=== PATIENT | male | born 1965 | race Two or more races ===

== ENCOUNTER 2017-02-17 17:46 | Emergency (ER) | payer OTHER ==
[~2017-02-17] VITALS: Ht 172.7 cm; Wt 74.8 kg
[2017-02-17 17:51] VITALS: BP 105/73
[2017-02-17] MEDS ORDERED: NORCO 5-325 TA1 EACH ORAL (17:53)
[2017-02-17] MEDS ORDERED: Mylanta II UD 30ml ORAL ONE (19:15)
[2017-02-17] MEDS ORDERED: Lidocaine 2% Visc 15ml soln ORAL ONE (19:15)
[2017-02-17] MEDS ORDERED: Dicyclomine HCl 10mg/5ml oral soln ORAL ONE (19:15)
--- NOTE | 2017-02-17 19:19 | Emergency Room Report ---
History of Present Illness General Chief Complaint: Upper Respiratory Illness Source: Patient Present Illness HPI 51 YO Male presents to the ED c/oN/V/D x 2 days. denies blood in the vomit or stool. pt reports immediate onset approximately 30 minutes after eating lunch yesterday. He denies fevers, reports chills. denies ill contacts or recent travel. Pt. reports intermittent abdominal cramping just prior to either episode of vomiting or diarrhea, then complete relief until next episode. pt. denies abdominal distention, trauma, rashes, bruises. Pt. reports prior hx of fatty liver years ago but denies symptoms in the right upper abdomen, pt. states he does not drink etoh. Denies CP, Palpitations, LOC, AMS, dizziness, Changes in Vision, Sensation, paresthesias, or a sudden severe headache. Allergies: Coded Allergies: PENICILLINS (Verified Allergy, Intermediate, 02/17/17) Patient History Past Medical History: see triage record Past Surgical History: none Pertinent Family History: none Immunizations: UTD Reviewed Nursing Documentation: PMH: Agreed, PSxH: Agreed Nursing Documentation-PMH Hx Cardiac Problems: No Hx Hypertension: No Hx Pacemaker: No Hx Asthma: No Hx COPD: No Hx Diabetes: No Hx Cancer: No Hx Gastrointestinal Problems: Yes - etoh abuse, liver disease Hx Dialysis: No Hx Neurological Problems: No Hx Cerebrovascular Accident: No Hx Seizures: No Review of Systems All Other Systems: negative except mentioned in HPI Physical Exam Vital Signs Date Time Temp Pulse Resp B/P Pulse Ox O2 Delivery O2 Flow Rate FiO2 02/17/17 17:45 98.2 92 16 105/73 98 Room Air Sp02 EP Interpretation: reviewed, normal General Appearance: no apparent distress, alert, GCS 15, non-toxic Head: normocephalic, atraumatic Eyes: bilateral eye PERRL, bilateral eye normal inspection ENT: hearing grossly normal, normal pharynx, no angioedema, normal voice, moist mucus membranes Neck: full range of motion, supple/symm/no masses Respiratory: lungs clear, normal breath sounds, speaking full sentences Cardiovascular #1: regular rate, rhythm, no edema Gastrointestinal: normal bowel sounds, non tender, soft, no guarding, no rebound, other - mild LLQ ttp, normal BS in all 4 quadrants, Negative Rosamond signs, Negative MacBurney's sign, Negative Rosvigns Sign, Negative Psoas, No Peritoneal signs. Rectal: deferred Musculoskeletal: back normal, gait/station normal, normal range of motion, non- tender Neurologic: alert, oriented x3, responsive, motor strength/tone normal, sensory intact, normal gait, speech normal Psychiatric: judgement/insight normal, memory normal, mood/affect normal Skin: normal color, no rash, warm/dry, well hydrated Medical Decision Making PA Attestation Dr. Valle is my supervising Physician whom patient management has been discussed with. Diagnostic Impression: Primary Impression: Gastroenteritis ER Course Pt. presents to the ED c/oN/V/D x 2 days. denies blood. immediate onset after eating lunch yesterday. denies fevers. Ddx considered but are not limited to GE, colitis, acute appy, SBO Vital signs: pt. is non-tachycardic, afebrile. H&PE are most consistent with acute gastroenteritis benign PE no evidence to suggest acute abdomen at this time. Pt is NAD non-toxic in appearance. pt appears to be well hydrated. ORDERS: none required at this time, the diagnosis is clinical ED INTERVENTIONS: - 4mg PO zofran for nausea. - GI Cocktail -Zantac 150mg -Fluid Challenge-- able to tolerate fluids without vomiting, including 2 sodas. I do not suspect an emergent condition at this time. with current presentation pt. is stable for close outpatient follow up. d/w with pt. to return immediately if change in condition such as worsen or new symptoms. DISCHARGE: At this time pt. is stable for d/c to home. Will provide printed patient care instructions, and any necessary prescriptions. Care plan and follow up instructions have been discussed with the patient prior to discharge. Last Vital Signs Date Time Temp Pulse Resp B/P Pulse Ox O2 Delivery O2 Flow Rate FiO2 02/17/17 17:51 98.2 92 16 105/73 98 Room Air Disposition: HOME, SELF-CARE Condition: Stable Scripts Ranitidine Hcl* (ZANTAC*) 150 Mg Tablet 150 MG ORAL TWICE A DAY for 7 Days, #14 TAB Prov: Shanti Milan P.A. 02/17/17 Ondansetron Odt* (ZOFRAN ODT*) 4 Mg Tab.rapdis 4 MG ORAL Q6H Y for Nausea & Vomiting, #20 TAB Prov: Shanti Milan P.A. 02/17/17 Referrals: NON PHYSICIAN (PCP) Patient Instructions: Viral Gastroenteritis, Adult, [id number] Additional Instructions: Take medications as directed. Follow up with PCP in 3-5 days Return sooner to ED if new symptoms occur, or current symptoms become worse. - Please note that this Emergency Department Report was dictated using [employer] technician technology software, occasionally this can lead to erroneous entry secondary to interpretation by the dictation equipment. Shanti Milan Feb 17, 2017 19:18
[2017-02-17] MEDS ORDERED: ZANTAC150 MG ORAL (19:20)
[2017-02-17] MEDS ORDERED: ZOFRAN ODT4 MG ORAL (19:20)
[2017-02-17 19:30] VITALS: BP 110/72
[2017-02-17 19:33] VITALS: BP 110/72
== END 2017-02-17 19:33 | disposition home or self-care (01) ==
LOC: EDBD 17:46 → EMR 18:50
DX: K52.9 Noninfective gastroenteritis and colitis, unspecified (principal); Z88.0 Allergy status to penicillin; K76.9 Liver disease, unspecified
CPT/HCPCS: 99284

== ENCOUNTER 2018-02-28 21:54 | Emergency (ER) | payer MEDICAID, OTHER ==
[~2018-02-28] VITALS: Ht 165.1 cm; Wt 76.2 kg
[~2018-02-28 21:54] MED LIST: NORCO 5-325 TA1 EACH ORAL; ZANTAC150 MG ORAL; ZOFRAN ODT4 MG ORAL
[2018-02-28] MEDS ORDERED: DOK100 M1 PO (22:04)
[2018-02-28] MEDS ORDERED: DIPHENHYDRAMINE25 M1 ORAL (22:04)
[2018-02-28] MEDS ORDERED: TAMSULOSIN HCL0.4 MG ORAL (22:04)
[2018-02-28] MEDS ORDERED: MAPAP500 M2 PO (22:04)
[2018-02-28 22:45] VITALS: BP 114/78
[2018-02-28 23:08] LABS: ANION GAP 9 mmol/L (5-15); BASOPHILS % (AUTO) 1.7 % (0.0-2.0); BLOOD UREA NITROGEN 12 mg/dL (7-18); CALCIUM 8.9 MG/DL (8.5-10.1); CARBON DIOXIDE 25 MMOL/L (21-32); CHLORIDE 106 MMOL/L (98-107); CREATININE 1.1 MG/DL (0.55-1.30); EOSINOPHILS % (AUTO) 4.6 % (0.0-3.0); HEMOGLOBIN 12.7 G/DL (14.2-18.0); LYMPHOCYTES % (AUTO) 40.7 % (20.0-45.0); MEAN CORPUSCULAR VOLUME 87 FL (80-99); MONOCYTES % (AUTO) 10.2 % (1.0-10.0); NEUTROPHILS % (AUTO) 42.7 % (45.0-75.0); PLATELET COUNT 199 K/UL (150-450); POTASSIUM 4.3 MMOL/L (3.5-5.1); RED BLOOD COUNT 4.37 M/UL (4.70-6.10); RED CELL DISTRIBUTION WIDTH 11.5 % (11.6-14.8); SODIUM 139 MMOL/L (136-145); WHITE BLOOD COUNT 4.7 K/UL (4.8-10.8)
[2018-02-28 23:25] LABS: APPEARANCE,URINE CLEAR; BILIRUBIN, URINE 1+ (NEGATIVE); GLUCOSE, URINE (UA) NEGATIVE (NEGATIVE); KETONES,URINE NEGATIVE (NEGATIVE); LEUKOCYTE ESTERASE ,URINE NEGATIVE (NEGATIVE); NITRITE,URINE NEGATIVE (NEGATIVE); PH,URINE 6 (4.5-8.0); PROTEIN,URINE 2+ (NEGATIVE); UROBILINOGEN,URINE 1 MG/DL (0.0-1.0)
[2018-02-28 23:41] LABS: COLOR,URINE AMBER
[2018-03-01] MEDS ORDERED: Ketorolac 60mg Inj IM ONE
[2018-03-01] MEDS ORDERED: Norco 5mg/325mg tab ORAL ONE
--- NOTE | 2018-03-01 00:43 | Emergency Room Report ---
History of Present Illness General Chief Complaint: Male Urogenital Problems Source: Patient Present Illness HPI Patient presents with complaints of burning with urination over the past 3 days Increased pain now also having pain to the lower back region Reports being in the hospital recently for over 2 weeks Denies any chest pain or shortness of breath denies any vomiting or diarrhea Patient initially reported some questionable urinary retention However after catheterization there was 40 mL's of urine Patient now reports that he was able to urinate however with increased pain Allergies: Coded Allergies: PENICILLINS (Verified Allergy, Intermediate, 02/17/17) Patient History Past Medical History: see triage record Pertinent Family History: none Reviewed Nursing Documentation: PMH: Agreed; PSxH: Agreed Nursing Documentation-PMH Past Medical History: No History, Except For Hx Cardiac Problems: No Hx Hypertension: No Hx Pacemaker: No Hx Asthma: No Hx COPD: No Hx Diabetes: No Hx Cancer: No Hx Gastrointestinal Problems: Yes - etoh abuse, liver disease, cholecystectomy 2016 Hx Dialysis: No Hx Neurological Problems: No Hx Cerebrovascular Accident: No Hx Seizures: No Review of Systems All Other Systems: negative except mentioned in HPI Physical Exam Vital Signs Date Time Temp Pulse Resp B/P (MAP) Pulse Ox O2 Delivery O2 Flow Rate FiO2 02/28/18 21:55 98.5 79 16 114/78 100 Room Air 98.4 Sp02 EP Interpretation: reviewed, normal General Appearance: well appearing, no apparent distress Head: normocephalic, atraumatic Eyes: bilateral eye PERRL, bilateral eye EOMI ENT: hearing grossly normal, normal pharynx, TMs + canals normal, uvula midline Neck: full range of motion, supple, no meningismus, no bony tend Respiratory: lungs clear, normal breath sounds, no rhonchi, no respiratory distress, no retraction, no accessory muscle use Cardiovascular #1: normal peripheral pulses, regular rate, rhythm, no edema, no gallop, no JVD, no murmur Gastrointestinal: normal bowel sounds, non tender, soft, no mass, no organomegaly, non-distended, no guarding, no hernia, no pulsatile mass, no rebound Genitourinary: no CVA tenderness Musculoskeletal: normal inspection Neurologic: oriented x3, responsive, ham clerk III-XII nml as tested, motor strength/ tone normal, sensory intact Psychiatric: mood/affect normal Skin: normal color, no rash, warm/dry, palpation normal Lymphatic: normal inspection, no adenopathy Medical Decision Making Diagnostic Impression: Primary Impression: Dysuria Additional Impression: Spinal stenosis ER Course Given the patient's complaints and presentation multiple differentials are considered Patient had initial extensive blood work obtained There was some evidence of urine and the blood this could be potentially from catheterization as the patient initially had complained of urinary retention There was no signs of retention however The patient had CT obtained which did not show any other pathology However there was some spinal stenosis evident Patient had recent extensive stay at another facility it was recommended that he obtain the medical records and discussed the findings with his primary physician And the patient is otherwise stable for close outpatient follow-up Labs Test 02/28/18 22:45 02/28/18 23:00 White Blood Count 4.7 K/UL (4.8-10.8) Red Blood Count 4.37 M/UL (4.70-6.10) Hemoglobin 12.7 G/DL (14.2-18.0) Hematocrit 38.0 % (42.0-52.0) Mean Corpuscular Volume 87 FL (80-99) Mean Corpuscular Hemoglobin 29.1 PG (27.0-31.0) Mean Corpuscular Hemoglobin Concent 33.5 G/DL (32.0-36.0) Red Cell Distribution Width 11.5 % (11.6-14.8) Platelet Count 199 K/UL (150-450) Mean Platelet Volume 7.7 FL (6.5-10.1) Neutrophils (%) (Auto) 42.7 % (45.0-75.0) Lymphocytes (%) (Auto) 40.7 % (20.0-45.0) Monocytes (%) (Auto) 10.2 % (1.0-10.0) Eosinophils (%) (Auto) 4.6 % (0.0-3.0) Basophils (%) (Auto) 1.7 % (0.0-2.0) Sodium Level 139 MMOL/L (136-145) Potassium Level 4.3 MMOL/L (3.5-5.1) Chloride Level 106 MMOL/L (98-107) Carbon Dioxide Level 25 MMOL/L (21-32) Anion Gap 9 mmol/L (5-15) Blood Urea Nitrogen 12 mg/dL (7-18) Creatinine 1.1 MG/DL (0.55-1.30) Estimat Glomerular Filtration Rate > 60 mL/min (>60) Glucose Level 99 MG/DL (74-106) Calcium Level 8.9 MG/DL (8.5-10.1) Urine Color [place] Urine Appearance Clear Urine pH 6 (4.5-8.0) Urine Specific [place] 1.025 (1.005-1.035) Urine Protein 2+ (NEGATIVE) Urine Glucose (UA) Negative (NEGATIVE) Urine Ketones Negative (NEGATIVE) Urine Occult Blood 3+ (NEGATIVE) Urine Nitrite Negative (NEGATIVE) Urine Bilirubin 1+ (NEGATIVE) Urine Ictotest Positive Urine Urobilinogen 1 MG/DL (0.0-1.0) Urine Leukocyte Esterase Negative (NEGATIVE) Urine RBC 30-40 /HPF (0 - 0) Urine WBC 0-2 /HPF (0 - 0) Urine Squamous Epithelial Cells Few /LPF (NONE/OCC) Urine Bacteria Few /HPF (NONE) CT/MRI/US Diagnostic Results CT/MRI/US Diagnostic Results : Impression CT abdomen pelvis mild hepatomegaly no evidence of bowel obstruction normal appendix, no evidence of renal calculi mild prostatic enlargement multi-lumbar degenerative changes L3 and L4 moderate to severe spinal stenosis Last Vital Signs Date Time Temp Pulse Resp B/P (MAP) Pulse Ox O2 Delivery O2 Flow Rate FiO2 03/01/18 00:05 98.4 02/28/18 22:45 79 16 114/78 100 Room Air Status: improved Disposition: HOME, SELF-CARE Condition: Improved Scripts Acetaminophen With Codeine (T#3) (TYLENOL #3 TAB*) Y Tab 1 TAB ORAL Q8H PRN for For Pain, #10 TAB Prov: Ced Jacobs DO 03/01/18 Phenazopyridine Hcl* (PYRIDIUM*) 100 Mg Tablet 100 MG ORAL THREE TIMES A DAY for 3 Days, TAB Prov: Ced Jacobs DO 03/01/18 Ibuprofen* (MOTRIN*) 600 Mg Tablet 600 MG ORAL Q8H PRN for For Pain, #20 TAB 0 Refills Prov: Ced Jacobs DO 03/01/18 Referrals: NON PHYSICIAN (PCP) Additional Instructions: Patient is provided with the discharge instructions notified to follow up with primary doctor in the next 2-3 days otherwise return to the er with any worsening symptoms. Please note that this report is being documented using [employer] technology. This can lead to erroneous entry secondary to incorrect interpretation by the dictating instrument. Ced Jacobs DO Mar 01, 2018 00:43
[2018-03-01] MEDS ORDERED: ACETAMINOPHEN-1 EAC1 ORAL (01:46)
[2018-03-01] MEDS ORDERED: PHENAZOPYRIDIN100 MG ORAL (01:46)
[2018-03-01] MEDS ORDERED: IBUPROFEN600 MG ORAL (01:46)
[2018-03-01 02:08] VITALS: BP 106/68
[2018-03-01 02:11] VITALS: BP 106/68
--- NOTE | 2018-03-01 09:39 | Diagnostic Imaging Report ---
Indication: Abdominal pain Technique: Continuous helical transaxial imaging of the abdomen and pelvis was obtained from the lung bases to the pubic symphysis. No intravenous contrast was administered. Coronal 2-D reformats were also obtained. Automatic Exposure Control was utilized. Total Dose length Product (DLP): 617.[address] Dose Index Volume (CTDIvol): 12.37 mGy Comparison: none Findings: Lung bases are clear. Cholecystectomy noted. No gallstones retained. No nephrolithiasis or hydronephrosis. No free fluid or free air identified. Normal appendix noted. Degenerative changes of the spine noted. IMPRESSION: No acute findings. Other incidental findings as above The CT scanner at [facility] is accredited by the [employer] and the scans are performed using dose optimization techniques as appropriate to a performed exam including Automatic Exposure control.
== END 2018-03-01 02:11 | disposition home or self-care (01) ==
LOC: EDUNIT# 21:54 → EDBD 21:54 → EMR 22:10
DX: R30.0 Dysuria (principal); M48.061 Spinal stenosis, lumbar region without neurogenic claudication; Z90.49 Acquired absence of other specified parts of digestive tract; Z88.0 Allergy status to penicillin
CPT/HCPCS: 36415; 74176; 80048; 81003; 85025; 99284

== ENCOUNTER 2018-06-04 01:43 | Emergency (ER) | payer MEDICAID ==
[~2018-06-04] VITALS: Ht 167.6 cm; Wt 72.6 kg
[~2018-06-04 01:43] MED LIST changes: +ACETAMINOPHEN-1 EAC1 ORAL; +DIPHENHYDRAMINE25 M1 ORAL; +DOK100 M1 PO; +IBUPROFEN600 MG ORAL; +MAPAP500 M2 PO; +PHENAZOPYRIDIN100 MG ORAL; +TAMSULOSIN HCL0.4 MG ORAL
[2018-06-04] MEDS ORDERED: Morphine Sulfate 4mg/ml Inj (IV/IM USE ONLY) IVP ONE (01:45)
[2018-06-04] MEDS ORDERED: Isovue-300 100ml vial INJ PRN (01:45)
[2018-06-04] MEDS ORDERED: Ketorolac 30mg Inj IV ONE (01:45)
[2018-06-04 02:00] VITALS: BP 110/72
[2018-06-04] MEDS ORDERED: Ketorolac 30mg Inj ONE (02:18)
[2018-06-04] MEDS ORDERED: Morphine Sulfate 4mg/ml Inj (IV/IM USE ONLY) ONE (02:19)
[2018-06-04 02:30] LABS: BASOPHILS % (AUTO) 1.5 % (0.0-2.0); EOSINOPHILS % (AUTO) 1.9 % (0.0-3.0); HEMATOCRIT 41.7 % (42.0-52.0); HEMOGLOBIN 14.3 G/DL (14.2-18.0); LYMPHOCYTES % (AUTO) 19.4 % (20.0-45.0); MEAN CORPUSCULAR VOLUME 87 FL (80-99); MONOCYTES % (AUTO) 10.9 % (1.0-10.0); NEUTROPHILS % (AUTO) 66.4 % (45.0-75.0); PLATELET COUNT 228 K/UL (150-450); RED BLOOD COUNT 4.79 M/UL (4.70-6.10); RED CELL DISTRIBUTION WIDTH 11.5 % (11.6-14.8); WHITE BLOOD COUNT 5.9 K/UL (4.8-10.8)
[2018-06-04 02:40] LABS: ANION GAP 10 mmol/L (5-15); BLOOD UREA NITROGEN 11 mg/dL (7-18); CALCIUM 9.2 MG/DL (8.5-10.1); CARBON DIOXIDE 23 MMOL/L (21-32); CHLORIDE 105 MMOL/L (98-107); CREATININE 1.1 MG/DL (0.55-1.30); POTASSIUM 3.3 MMOL/L (3.5-5.1); SODIUM 138 MMOL/L (136-145)
--- NOTE | 2018-06-04 02:45 | Emergency Room Report ---
History of Present Illness General Chief Complaint: Generalized Weakness Source: Patient, EMS Present Illness HPI 52-year-old male since ED for evaluation. Brought in by EMS stating having abdominal pain since last night. Pain is sharp, 10 out of 10, cramping localized to lower abdomen, radiating to the back. States he also notes blood in his urine. States the last time this happened he was admitted to the hospital for a "infection". Denies fevers or chills. Denies nausea or vomiting. No other aggravating relieving factors. Denies any other associated symptoms Allergies: Coded Allergies: PENICILLINS (Verified Allergy, Intermediate, 02/17/17) Uncoded Allergies: PENICILLIN (Allergy, Mild, 06/04/18) Patient History Past Medical History: other - cirrhosis Past Surgical History: luis manuel Pertinent Family History: none Social History: Denies: smoking, alcohol use, drug use Immunizations: UTD Reviewed Nursing Documentation: PMH: Agreed; PSxH: Agreed Nursing Documentation-PMH Past Medical History: No History, Except For Hx Cardiac Problems: Yes Hx Hypertension: No Hx Pacemaker: No Hx Asthma: No Hx COPD: No Hx Diabetes: No Hx Cancer: No Hx Gastrointestinal Problems: Yes - cirrosis, gallbadder removed Hx Dialysis: No Hx Neurological Problems: No Hx Cerebrovascular Accident: No Hx Seizures: No Review of Systems All Other Systems: negative except mentioned in HPI Physical Exam Vital Signs Date Time Temp Pulse Resp B/P (MAP) Pulse Ox O2 Delivery O2 Flow Rate FiO2 06/04/18 01:26 94.4 88 18 139/100 99 94.5 06/04/18 02:00 Room Air Sp02 EP Interpretation: reviewed, normal General Appearance: no apparent distress, alert, GCS 15, non-toxic Head: normocephalic, atraumatic Eyes: bilateral eye normal inspection, bilateral eye PERRL ENT: hearing grossly normal, normal pharynx, no angioedema, normal voice Neck: full range of motion, supple/symm/no masses Respiratory: chest non-tender, lungs clear, normal breath sounds, speaking full sentences Cardiovascular #1: regular rate, rhythm, no edema Cardiovascular #2: 2+ carotid (R), 2+ carotid (L), 2+ radial (R), 2+ radial (L) , 2+ dorsalis pedis (R), 2+ dorsalis pedis (L) Gastrointestinal: normal bowel sounds, soft, non-distended, no rebound, guarding, tenderness Rectal: deferred Genitourinary: normal inspection, no CVA tenderness Musculoskeletal: back normal, gait/station normal, normal range of motion, non- tender Neurologic: alert, oriented x3, responsive, motor strength/tone normal, sensory intact, speech normal Psychiatric: judgement/insight normal, memory normal, mood/affect normal, no suicidal/homicidal ideation Reflexes: 3+ bicep (R), 3+ bicep (L), 3+ tricep (R), 3+ tricep (L), 3+ knee (R) , 3+ knee (L) Skin: normal color, no rash, warm/dry, well hydrated Lymphatic: no adenopathy Medical Decision Making Diagnostic Impression: Primary Impression: Gastroenteritis ER Course Hospital Course 52-year-old M presents to ED with abdominal pain Differential diagnosis includes-appendicitis, cholecystitis, small bowel obstruction, gastritis, Clinical course Patient placed on stretcher. After initial history and physical I ordered labs , IV fluids, pain medications and CT scan Labs - no leukocytosis, electrolytes ok, LFTs normal, UA unremarkable CT scan shows changes consistent with ileus, enteritis Patient initially denied any diarrhea but admits to having diarrhea. States he has had these similar problems in the past. Is asking for [place] as he states his PMD prescribed some [place] every month. I explained to the patient that there is no indication for [place]; if he wants [place] he needs to follow-up with his PMD Patient states he's had this problem on and off for several years now. He is asking what can be done in the emergency room. I expect that there is no emergent condition here. Patient is to follow up with GI as outpatient I feel this is a highly complex case requiring extensive working including EKG/ Rhythm strip, Xray/CT/US, Blood/urine lab work, repeat exams while in ED, and administration of strong opiates/narcotics for pain control, admission to hospital or close patient follow up. Diagnosis - gastroenteritis Stable and discharged to home. Followup with PMD. Return to ED if symptoms recur or worsen Labs Test 06/04/18 02:05 06/04/18 04:38 White Blood Count 5.9 K/UL (4.8-10.8) Red Blood Count 4.79 M/UL (4.70-6.10) Hemoglobin 14.3 G/DL (14.2-18.0) Hematocrit 41.7 % (42.0-52.0) Mean Corpuscular Volume 87 FL (80-99) Mean Corpuscular Hemoglobin 29.9 PG (27.0-31.0) Mean Corpuscular Hemoglobin Concent 34.4 G/DL (32.0-36.0) Red Cell Distribution Width 11.5 % (11.6-14.8) Platelet Count 228 K/UL (150-450) Mean Platelet Volume 7.8 FL (6.5-10.1) Neutrophils (%) (Auto) 66.4 % (45.0-75.0) Lymphocytes (%) (Auto) 19.4 % (20.0-45.0) Monocytes (%) (Auto) 10.9 % (1.0-10.0) Eosinophils (%) (Auto) 1.9 % (0.0-3.0) Basophils (%) (Auto) 1.5 % (0.0-2.0) Sodium Level 138 MMOL/L (136-145) Potassium Level 3.3 MMOL/L (3.5-5.1) Chloride Level 105 MMOL/L (98-107) Carbon Dioxide Level 23 MMOL/L (21-32) Anion Gap 10 mmol/L (5-15) Blood Urea Nitrogen 11 mg/dL (7-18) Creatinine 1.1 MG/DL (0.55-1.30) Estimat Glomerular Filtration Rate > 60 mL/min (>60) Glucose Level 86 MG/DL (74-106) Calcium Level 9.2 MG/DL (8.5-10.1) Total Bilirubin 1.6 MG/DL (0.2-1.0) Direct Bilirubin 0.3 MG/DL (0.0-0.3) Aspartate Amino Transf (AST/SGOT) 147 U/L (15-37) Alanine Aminotransferase (ALT/SGPT) 268 U/L (12-78) Alkaline Phosphatase 91 U/L (46-116) Total Protein 8.7 G/DL (6.4-8.2) Albumin 4.2 G/DL (3.4-5.0) Globulin 4.5 g/dL Albumin/Globulin Ratio 0.9 (1.0-2.7) Lipase 330 U/L (73-393) Urine Color Yellow Urine Appearance Clear Urine pH 5 (4.5-8.0) Urine Specific [place] 1.010 (1.005-1.035) Urine Protein 2+ (NEGATIVE) Urine Glucose (UA) Negative (NEGATIVE) Urine Ketones Negative (NEGATIVE) Urine Blood Negative (NEGATIVE) Urine Nitrite Negative (NEGATIVE) Urine Bilirubin Negative (NEGATIVE) Urine Urobilinogen Normal MG/DL (0.0-1.0) Urine Leukocyte Esterase 1+ (NEGATIVE) Urine RBC 0-2 /HPF (0 - 0) Urine WBC 0 /HPF (0 - 0) Urine Squamous Epithelial Cells Occasional /LPF Urine Bacteria Occasional /HPF (NONE) CT/MRI/US Diagnostic Results CT/MRI/US Diagnostic Results : Imaging Test Ordered: CT A/P Impression Diffuse small bowel enteritis/ileus suspected. Correlate clinically. Status post cholecystectomy. Last Vital Signs Date Time Temp Pulse Resp B/P (MAP) Pulse Ox O2 Delivery O2 Flow Rate FiO2 06/04/18 02:24 97.9 06/04/18 02:00 76 15 110/72 98 Room Air Status: improved Disposition: HOME, SELF-CARE Condition: Stable Scripts Ranitidine Hcl* (ZANTAC*) 150 Mg Tablet 150 MG ORAL TWICE A DAY, #30 TAB Prov: Tavares Rosas MD 06/04/18 Dicyclomine Hcl* (DICYCLOMINE HCL*) 10 Mg Capsule 10 MG PO QID for 5 Days, CAP Prov: Tavares Rosas MD 06/04/18 Referrals: NON PHYSICIAN (PCP) Tavares Rosas MD Jun 04, 2018 02:45
[2018-06-04 02:50] LABS: ALANINE AMINOTRANSFERASE 268 U/L (12-78); ALBUMIN 4.2 G/DL (3.4-5.0); ALBUMIN/GLOBULIN RATIO 0.9 (1.0-2.7); ALKALINE PHOSPHATASE 91 U/L (46-116); ASPARTATE AMINO TRANSFERASE 147 U/L (15-37); BILIRUBIN,TOTAL 1.6 MG/DL (0.2-1.0)
[2018-06-04 02:55] LABS: BILIRUBIN,DIRECT 0.3 MG/DL (0.0-0.3)
[2018-06-04 05:15] LABS: APPEARANCE,URINE CLEAR; BILIRUBIN, URINE NEGATIVE (NEGATIVE); GLUCOSE, URINE (UA) NEGATIVE (NEGATIVE); KETONES,URINE NEGATIVE (NEGATIVE); LEUKOCYTE ESTERASE ,URINE 1+ (NEGATIVE); NITRITE,URINE NEGATIVE (NEGATIVE); PH,URINE 5 (4.5-8.0); PROTEIN,URINE 2+ (NEGATIVE); UROBILINOGEN,URINE NORMAL MG/DL (0.0-1.0)
[2018-06-04 05:19] LABS: COLOR,URINE YELLOW
[2018-06-04] MEDS ORDERED: RANITIDINE HCL150 MG ORAL (05:34)
[2018-06-04] MEDS ORDERED: DICYCLOMINE HCL10 MG PO (05:34)
[2018-06-04 05:35] VITALS: BP 129/83
--- NOTE | 2018-06-04 08:38 | Diagnostic Imaging Report ---
Indication: Abdominal pain Technique: Continuous helical transaxial imaging of the abdomen and pelvis was obtained from the lung bases to the pubic symphysis during intravenous contrast administration. Coronal 2-D reformats were also obtained. Study obtained in a Siemens sensation [address] Automatic Exposure Control was utilized. Total Dose length Product (DLP): [address] Dose Index Volume (CTDIvol): 0.15, 12.06 mGy Comparison: None Findings: The appendix is identified and appears normal. There are dilated fluid-filled loops of small bowel noted in a diffuse fashion suggestive of enteritis/ileus. Correlate clinically. There is no free fluid or free air. Cholecystectomy noted. Kidneys are unremarkable bilaterally. There is no hydronephrosis. The lung bases appear clear. The stomach is nondistended and limited in evaluation. The right lobe of the liver is enlarged and elongated. This is probably a Dilshad's configuration. Solid organs including the liver pancreas and spleen appear unremarkable otherwise. There is narrowing of intervertebral discs and accompanying endplate osteophyte formation. Hypertrophied facet joints also demonstrated.. Prominent disc osteophyte complex at L3-4 results in some narrowing of the central canal. IMPRESSION: Diffuse small bowel enteritis/ileus suspected. Correlate clinically. Status post cholecystectomy. Hepatomegaly versus Dilshad's lobe Other incidental findings as above. [facility] has communicated the preliminary results to the Emergency Department. Their findings are largely concordant with this report. The CT scanner at [facility] is accredited by the [employer] and the scans are performed using dose optimization techniques as appropriate to a performed exam including Automatic Exposure control.
== END 2018-06-04 05:35 | disposition home or self-care (01) ==
LOC: EDBD 01:43 → EMR 02:06
DX: K52.9 Noninfective gastroenteritis and colitis, unspecified (principal); R31.9 Hematuria, unspecified; K74.60 Unspecified cirrhosis of liver; Z88.0 Allergy status to penicillin; Z86.79 Personal history of other diseases of the circulatory system; Z90.49 Acquired absence of other specified parts of digestive tract
CPT/HCPCS: 36415; 74177; 80053; 81003; 82248; 83690; 85025; 96361; 96374; 96375; 99284; J1885; J2270; Q9967

== ENCOUNTER 2019-03-03 19:36 | Inpatient (IN) | payer MEDICAID ==
[~2019-03-03] VITALS: Ht 162.6 cm; Wt 70.3 kg
[~2019-03-03 19:36] MED LIST changes: +DICYCLOMINE HCL10 MG PO; +RANITIDINE HCL150 MG ORAL
[2019-03-03] MEDS ORDERED: UNOBMED (19:40)
--- NOTE | 2019-03-03 19:42 | NUR ---
ED Nurse Note: Pt ALEADai [id number] from home c/o 05/30 muscle pain/cramping all over his body. Pt is A&Ox4, denies sob. Hx of cirrhosis.
[2019-03-03] MEDS ORDERED: Ketorolac 30mg Inj IV ONE (19:45)
[2019-03-03 19:46] VITALS: BP 90/50
[2019-03-03 20:35] LABS: BASOPHILS % (AUTO) 0.7 % (0.0-2.0); EOSINOPHILS % (AUTO) 0.8 % (0.0-3.0); HEMATOCRIT 42.6 % (42.0-52.0); HEMOGLOBIN 14.5 G/DL (14.2-18.0); LYMPHOCYTES % (AUTO) 25.1 % (20.0-45.0); MEAN CORPUSCULAR VOLUME 89 FL (80-99); MONOCYTES % (AUTO) 10.2 % (1.0-10.0); NEUTROPHILS % (AUTO) 63.3 % (45.0-75.0); PLATELET COUNT 219 K/UL (150-450); RED BLOOD COUNT 4.81 M/UL (4.70-6.10); RED CELL DISTRIBUTION WIDTH 11.1 % (11.6-14.8); WHITE BLOOD COUNT 7.4 K/UL (4.8-10.8)
[2019-03-03 20:54] LABS: ANION GAP 15 mmol/L (5-15); BLOOD UREA NITROGEN 43 mg/dL (7-18); CALCIUM 9.3 MG/DL (8.5-10.1); CARBON DIOXIDE 21 MMOL/L (21-32); CHLORIDE 95 MMOL/L (98-107); CREATININE 3.6 MG/DL (0.55-1.30); POTASSIUM 3.8 MMOL/L (3.5-5.1); SODIUM 131 MMOL/L (136-145)
[2019-03-03 21:07] LABS: ALANINE AMINOTRANSFERASE 24 U/L (12-78); ALBUMIN 4.3 G/DL (3.4-5.0); ALBUMIN/GLOBULIN RATIO 0.8 (1.0-2.7); ALKALINE PHOSPHATASE 80 U/L (46-116); ASPARTATE AMINO TRANSFERASE 25 U/L (15-37); BILIRUBIN,TOTAL 1.2 MG/DL (0.2-1.0); CREATINE KINASE 523 U/L (26-308)
[2019-03-03 21:08] LABS: BILIRUBIN,DIRECT 0.2 MG/DL (0.0-0.3)
--- NOTE | 2019-03-03 22:43 | Emergency Room Report ---
History of Present Illness General Chief Complaint: Pain Source: Patient Present Illness HPI The patient presents with total body pain. He also feels muscle aches. He denies having fevers or chills. When asked about chest pain he says "my whole body hurts". He hasn't had any vomiting or diarrhea. The patient has a history of substance abuse in the past. He rates the pain 10/10. Aching all over and constant. He denies taking any medication for the pain. No fevers, chills, palpitations, dysuria, shortness of breath, visual changes, headache. He is anxious. Allergies: Coded Allergies: PENICILLINS (Verified Allergy, Intermediate, 02/17/17) Uncoded Allergies: PENICILLIN (Allergy, Mild, 06/04/18) Patient History Past Medical History: see triage record Past Surgical History: luis manuel Social History: Reports: smoking, drug use Social History Narrative From home Reviewed Nursing Documentation: PMH: Agreed; PSxH: Agreed Nursing Documentation-PMH Past Medical History: No History, Except For Hx Cardiac Problems: Yes Hx Hypertension: No Hx Pacemaker: No Hx Asthma: No Hx COPD: No Hx Diabetes: No Hx Cancer: No Hx Gastrointestinal Problems: Yes - cirrosis, gallbadder removed Hx Dialysis: No Hx Neurological Problems: No Hx Cerebrovascular Accident: No Hx Seizures: No Review of Systems All Other Systems: negative except mentioned in HPI Physical Exam Vital Signs Date Time Temp Pulse Resp B/P (MAP) Pulse Ox O2 Delivery O2 Flow Rate FiO2 03/03/19 19:37 97.5 122 20 90/50 (63) 100 Room Air Sp02 EP Interpretation: reviewed, normal General Appearance: well appearing, GCS 15, mild distress Head: normocephalic, atraumatic Eyes: bilateral eye normal inspection, bilateral eye PERRL, bilateral eye EOMI ENT: dry mucus membranes Neck: supple Respiratory: lungs clear, normal breath sounds Cardiovascular #1: tachycardia Cardiovascular #2: 2+ radial (R) Gastrointestinal: normal inspection, normal bowel sounds, non tender, no mass, non-distended, scaphoid Genitourinary: no CVA tenderness Musculoskeletal: back normal, normal range of motion Neurologic: alert, oriented x3, grossly normal Psychiatric: anxious Skin: no rash Medical Decision Making Diagnostic Impression: Primary Impression: Acute renal failure Qualified Codes: N17.9 - Acute kidney failure, unspecified Additional Impression: Amphetamine abuse ER Course Patient presents with total body pain. Differential includes rhabdomyolysis, myositis, electrolyte imbalance, substance abuse amongst others. Evaluation will be with EKG, chest x-ray and labs. The patient is treated with IV hydration and a dose of Toradol. EKG without injury. Chest x-ray unremarkable. Labs with acute renal failure and amphetamines. Fractional excretion of sodium suggests prerenal origin of renal failure. CPK is minimally elevated. Pain improved with treatment. IV hydration continued however due to the renal failure the patient is admitted to medical floor. Laboratory Tests Test 03/03/19 20:20 03/03/19 22:40 White Blood Count 7.4 K/UL (4.8-10.8) Red Blood Count 4.81 M/UL (4.70-6.10) Hemoglobin 14.5 G/DL (14.2-18.0) Hematocrit 42.6 % (42.0-52.0) Mean Corpuscular Volume 89 FL (80-99) Mean Corpuscular Hemoglobin 30.2 PG (27.0-31.0) Mean Corpuscular Hemoglobin Concent 34.0 G/DL (32.0-36.0) Red Cell Distribution Width 11.1 % (11.6-14.8) L Platelet Count 219 K/UL (150-450) Mean Platelet Volume 7.0 FL (6.5-10.1) Neutrophils (%) (Auto) 63.3 % (45.0-75.0) Lymphocytes (%) (Auto) 25.1 % (20.0-45.0) Monocytes (%) (Auto) 10.2 % (1.0-10.0) H Eosinophils (%) (Auto) 0.8 % (0.0-3.0) Basophils (%) (Auto) 0.7 % (0.0-2.0) Prothrombin Time 10.5 SEC (9.30-11.50) Prothrombin Time INR 1.0 (0.9-1.1) PTT 23 SEC (23-33) Sodium Level 131 MMOL/L (136-145) L Potassium Level 3.8 MMOL/L (3.5-5.1) Chloride Level 95 MMOL/L (98-107) L Carbon Dioxide Level 21 MMOL/L (21-32) Anion Gap 15 mmol/L (5-15) Blood Urea Nitrogen 43 mg/dL (7-18) H Creatinine 3.6 MG/DL (0.55-1.30) H Estimate Glomerular Filtration Rate 17.7 mL/min (>60) Glucose Level 129 MG/DL (74-106) H Calcium Level 9.3 MG/DL (8.5-10.1) Total Bilirubin 1.2 MG/DL (0.2-1.0) H Direct Bilirubin 0.2 MG/DL (0.0-0.3) Aspartate Amino Transferase (AST) 25 U/L (15-37) Alanine Aminotransferase (ALT) 24 U/L (12-78) Alkaline Phosphatase 80 U/L (46-116) Total Creatine Kinase 523 U/L (26-308) H Troponin I 0.000 ng/mL (0.000-0.056) Pro-B-Type Natriuretic Peptide 45 pg/mL (0-125) Total Protein 9.4 G/DL (6.4-8.2) H Albumin 4.3 G/DL (3.4-5.0) Globulin 5.1 g/dL Albumin/Globulin Ratio 0.8 (1.0-2.7) L Urine Color Gayle Urine Appearance Cloudy Urine pH 5 (4.5-8.0) Urine Specific [place] 1.025 (1.005-1.035) Urine Protein 3+ (NEGATIVE) H Urine Glucose (UA) Negative (NEGATIVE) Urine Ketones 1+ (NEGATIVE) H Urine Blood 1+ (NEGATIVE) H Urine Nitrite Negative (NEGATIVE) Urine Bilirubin 1+ (NEGATIVE) H Urine Ictotest Negative (NEGATIVE) Urine Urobilinogen 1 MG/DL (0.0-1.0) H Urine Leukocyte Esterase 1+ (NEGATIVE) H Urine RBC 0-2 /HPF (0 - 0) H Urine WBC 0-2 /HPF (0 - 0) Urine Squamous Epithelial Cells Few /LPF (NONE/OCC) Urine Bacteria Many /HPF (NONE) H Urine Hyaline Casts 10-15 /LPF (NONE) H Urine Random Sodium < 20 mmol/L (20-110) L Urine Creatinine 576.2 MG/DL (30.0-125.0) H Urine Opiates Screen Negative (NEGATIVE) Urine Barbiturates Screen Negative (NEGATIVE) Phencyclidine (PCP) Screen Negative (NEGATIVE) Urine Amphetamines Screen Positive (NEGATIVE) H Urine Benzodiazepines Screen Negative (NEGATIVE) Urine Cocaine Screen Negative (NEGATIVE) Urine Marijuana (THC) Screen Positive (NEGATIVE) H EKG Diagnostic Results Rate: normal Rhythm: NSR ST Segments: no acute changes - Biatrial enlargement Rhythm Strip Diag. Results EP Interpretation: yes Rhythm: NSR, no PVC's, no ectopy Chest X-Ray Diagnostic Results Chest X-Ray Diagnostic Results : Chest X-Ray Ordered: Yes # of Views/Limited/Complete: 1 View Indication: Other EP Interpretation: Yes Interpretation: no consolidation, no effusion, no pneumothorax Impression: No acute disease Electronically Signed by: Electronically signed by Alfonso Gomez MD Last Vital Signs Date Time Temp Pulse Resp B/P (MAP) Pulse Ox O2 Delivery O2 Flow Rate FiO2 03/04/19 01:45 Room Air 03/03/19 23:45 98.5 78 18 98/68 98 Status: improved Disposition: ADMITTED INPATIENT Condition: Serious Referrals: NON PHYSICIAN (PCP) Alfonso Gomez MD Mar 03, 2019 22:43
[2019-03-03 22:55] LABS: APPEARANCE,URINE CLOUDY; BILIRUBIN, URINE 1+ (NEGATIVE); GLUCOSE, URINE (UA) NEGATIVE (NEGATIVE); KETONES,URINE 1+ (NEGATIVE); LEUKOCYTE ESTERASE ,URINE 1+ (NEGATIVE); NITRITE,URINE NEGATIVE (NEGATIVE); PH,URINE 5 (4.5-8.0); PROTEIN,URINE 3+ (NEGATIVE); UROBILINOGEN,URINE 1 MG/DL (0.0-1.0)
[2019-03-03 22:57] LABS: COLOR,URINE AMBER
[2019-03-03] MEDS ORDERED: Miralax 17gm pkt ORAL PRN (23:30)
[2019-03-03] MEDS ORDERED: Zolpidem 5mg tab ORAL PRN (23:30)
[2019-03-03] MEDS ORDERED: LORazepam Inj 2mg/ml 1ml IV PRN (23:30)
[2019-03-03] MEDS ORDERED: Morphine Sulfate 2mg/ml Inj(IV/IM USE ONLY) IVP PRN (23:30)
--- NOTE | 2019-03-03 23:45 | NUR ---
TRANSFER TO FLOOR: Patient transferred to as ordered, per Dr Pickens. Report given to ROSALIE Mitchell. Belongings and medications given to . Family and or S/O informed of transfer.
[2019-03-04] MEDS: D5NS 1,000 ML IV SCH ×4 (00:29→13:11)
--- NOTE | 2019-03-04 00:36 | NUR ---
NURSE NOTES: Received report from ROSALIE Rutherford from ED at 2345. Patient arrived on the floor at 0010, 03/04/19. Patient alert, awake, and verbally responsive to let needs known. Patient is breathing unlabored and evenly without distress, discomfort, or SOB noted. Patient verbalized generalized pain over the body. Vitals within normal range. Oriented to the room and the unit. IV site noted on the RAC running fluid as ordered. Patient have dry, scaly, itchy feet. Otherwise skin is intact. Belongings (1 shirt, 1 pant, 1 slipper, 1 sweater, socks, and cellphone LG ZTE) noted at the bedside confirmed with patient. Call light placed within reach. Will continue to monitor and provide care as ordered.
[2019-03-04 04:00] VITALS: BP 104/70
--- NOTE | 2019-03-04 07:38 | NUR ---
HAND-OFF: Report given to Gia RN. Patient in stable condition.
--- NOTE | 2019-03-04 07:39 | NUR ---
NURSE NOTES: Received pt from Minsu, RN in bed. AO x 4. Room air. IV 20g R AC running D5NS @200 mg/hr. No s/s pain/distress. Bed in the lowest, locked, and alarm on. Call light within reach. Will continue to monitor
--- NOTE | 2019-03-04 07:40 | NUR ---
NURSE NOTES: Collected urine and delivered to lab
[2019-03-04 07:50] LABS: APPEARANCE,URINE CLEAR; BILIRUBIN, URINE NEGATIVE (NEGATIVE); COLOR,URINE PALE YELLOW; GLUCOSE, URINE (UA) NEGATIVE (NEGATIVE); KETONES,URINE NEGATIVE (NEGATIVE); LEUKOCYTE ESTERASE ,URINE NEGATIVE (NEGATIVE); NITRITE,URINE NEGATIVE (NEGATIVE); PH,URINE 5 (4.5-8.0); PROTEIN,URINE 2+ (NEGATIVE); UROBILINOGEN,URINE NORMAL MG/DL (0.0-1.0)
[2019-03-04 08:00] VITALS: BP 110/63
[2019-03-04 08:02] LABS: BASOPHILS % (AUTO) 1.1 % (0.0-2.0); EOSINOPHILS % (AUTO) 2.7 % (0.0-3.0); HEMATOCRIT 35.9 % (42.0-52.0); HEMOGLOBIN 12.2 G/DL (14.2-18.0); LYMPHOCYTES % (AUTO) 41.9 % (20.0-45.0); MEAN CORPUSCULAR VOLUME 90 FL (80-99); MONOCYTES % (AUTO) 8.2 % (1.0-10.0); NEUTROPHILS % (AUTO) 46.2 % (45.0-75.0); PLATELET COUNT 204 K/UL (150-450); RED CELL DISTRIBUTION WIDTH 11.5 % (11.6-14.8); WHITE BLOOD COUNT 6.4 K/UL (4.8-10.8)
[2019-03-04] MEDS: Heparin 5000 units/ml inj SUBQ SCH ×2 (08:20→20:15)
[2019-03-04 08:48] LABS: ALANINE AMINOTRANSFERASE 20 U/L (12-78); ALBUMIN 3.5 G/DL (3.4-5.0); ALKALINE PHOSPHATASE 59 U/L (46-116); ANION GAP 10 mmol/L (5-15); ASPARTATE AMINO TRANSFERASE 23 U/L (15-37); BLOOD UREA NITROGEN 36 mg/dL (7-18); CALCIUM 7.8 MG/DL (8.5-10.1); CARBON DIOXIDE 22 MMOL/L (21-32); CHLORIDE 102 MMOL/L (98-107); CHOLESTEROL 129 MG/DL (< 200); CREATINE KINASE 539 U/L (26-308); CREATININE 1.8 MG/DL (0.55-1.30); HDL CHOLESTEROL 44 MG/DL (40-60); PHOSPHORUS 3.3 MG/DL (2.5-4.9); POTASSIUM 3.1 MMOL/L (3.5-5.1); SODIUM 134 MMOL/L (136-145); TRIGLYCERIDES 44 MG/DL (30-150)
[2019-03-04 09:11] LABS: BILIRUBIN,TOTAL 1.2 MG/DL (0.2-1.0)
[2019-03-04 09:13] LABS: BILIRUBIN,DIRECT 0.2 MG/DL (0.0-0.3)
[2019-03-04 12:00] VITALS: BP 115/69
--- NOTE | 2019-03-04 12:37 | Consultation ---
History of Present Illness General Date patient seen: Mar 04, 2019 Chief Complaint: Pain Present Illness HPI 53 year old female with hx of BPH, drug use, presented to ER with total body pain. He has difficulty urinating worsening for the last one week. He was found to be in renal failure. Allergies: Coded Allergies: PENICILLINS (Verified Allergy, Intermediate, 02/17/17) Uncoded Allergies: PENICILLIN (Allergy, Mild, 06/04/18) Medication History Scheduled Dicyclomine Hcl* (Dicyclomine Hcl*), 10 MG PO QID Phenazopyridine Hcl* (Pyridium*), 100 MG ORAL THREE TIMES A DAY Ranitidine Hcl* (Zantac*), 150 MG ORAL TWICE A DAY Ranitidine Hcl* (Zantac*), 150 MG ORAL TWICE A DAY Tamsulosin Hcl (Tamsulosin Hcl*), 0.4 MG ORAL BEDTIME, (Reported) Scheduled PRN Acetaminophen With Codeine (T#3) (Tylenol #3 Tab*), 1 TAB ORAL Q8H PRN for For Pain Diphenhydramine Hcl* (Diphenhydramine Hcl*), 50 MG ORAL Q8H PRN for Insomnia, ( Reported) Hydrocodone Bit/Acetaminophen 5-325* (Norris 5-325*), 1 TAB ORAL Q6H PRN for For Pain, (Reported) Ibuprofen* (Motrin*), 600 MG ORAL Q8H PRN for For Pain Ondansetron Odt* (Zofran Odt*), 4 MG ORAL Q6H PRN for Nausea & Vomiting Miscellaneous Medications Acetaminophen (Mapap), 500 MG PO, (Reported) Docusate Sodium (Dok), 100 MG PO, (Reported) Unable to Obtain Medications (Unable To Obtain Meds), (Reported) Patient History Healthcare decision maker Resuscitation status Full Code Advanced Directive on File No Past Medical/Surgical History Past Medical/Surgical History: (1) Amphetamine abuse (2) BPH (benign prostatic hyperplasia) Review of Systems All Other Systems: negative except mentioned in HPI Physical Exam General Appearance: WD/WN Lines, tubes and drains: peripheral HEENT: normocephalic, atraumatic Neck: non-tender, normal alignment Respiratory/Chest: chest wall non-tender, lungs clear Breasts: no masses Cardiovascular/Chest: normal peripheral pulses Abdomen: normal bowel sounds Genitourinary/Rectal: normal genital exam Extremities: normal range of motion Last 24 Hour Vital Signs Date Time Temp Pulse Resp B/P (MAP) Pulse Ox O2 Delivery O2 Flow Rate FiO2 03/04/19 12:00 97.5 72 19 115/69 (84) 98 03/04/19 09:00 Room Air 03/04/19 08:00 98.2 61 18 110/63 (79) 98 03/04/19 04:00 97.7 61 16 104/70 (81) 99 03/04/19 01:45 Room Air 03/03/19 23:45 98.5 78 18 98/68 98 Room Air 03/03/19 20:44 97.5 03/03/19 19:46 97.5 98 20 90/50 100 Room Air 03/03/19 19:37 97.5 122 20 90/50 (63) 100 Room Air Intake and Output 03/03/19 03/04/19 19:00 07:00 Intake Total 1113.3 ml Balance 1113.3 ml Intake Oral 0 ml IV Total 1113.3 ml Laboratory Tests Test 03/03/19 20:20 03/03/19 22:40 03/04/19 06:08 03/04/19 07:15 White Blood Count 7.4 K/UL (4.8-10.8) 6.4 K/UL (4.8-10.8) Red Blood Count 4.81 M/UL (4.70-6.10) 4.00 M/UL (4.70-6.10) L Hemoglobin 14.5 G/DL (14.2-18.0) 12.2 G/DL (14.2-18.0) L Hematocrit 42.6 % (42.0-52.0) 35.9 % (42.0-52.0) L Mean Corpuscular Volume 89 FL (80-99) 90 FL (80-99) Mean Corpuscular Hemoglobin 30.2 PG (27.0-31.0) 30.5 PG (27.0-31.0) Mean Corpuscular Hemoglobin Concent 34.0 G/DL (32.0-36.0) 34.0 G/DL (32.0-36.0) Red Cell Distribution Width 11.1 % (11.6-14.8) L 11.5 % (11.6-14.8) L Platelet Count 219 K/UL (150-450) 204 K/UL (150-450) Mean Platelet Volume 7.0 FL (6.5-10.1) 6.7 FL (6.5-10.1) Neutrophils (%) (Auto) 63.3 % (45.0-75.0) 46.2 % (45.0-75.0) Lymphocytes (%) (Auto) 25.1 % (20.0-45.0) 41.9 % (20.0-45.0) Monocytes (%) (Auto) 10.2 % (1.0-10.0) H 8.2 % (1.0-10.0) Eosinophils (%) (Auto) 0.8 % (0.0-3.0) 2.7 % (0.0-3.0) Basophils (%) (Auto) 0.7 % (0.0-2.0) 1.1 % (0.0-2.0) Prothrombin Time 10.5 SEC (9.30-11.50) Prothromb Time International Ratio 1.0 (0.9-1.1) Activated Partial Thromboplast Time 23 SEC (23-33) Sodium Level 131 MMOL/L (136-145) L 134 MMOL/L (136-145) L Potassium Level 3.8 MMOL/L (3.5-5.1) 3.1 MMOL/L (3.5-5.1) L Chloride Level 95 MMOL/L (98-107) L 102 MMOL/L (98-107) Carbon Dioxide Level 21 MMOL/L (21-32) 22 MMOL/L (21-32) Anion Gap 15 mmol/L (5-15) 10 mmol/L (5-15) Blood Urea Nitrogen 43 mg/dL (7-18) H 36 mg/dL (7-18) H Creatinine 3.6 MG/DL (0.55-1.30) H 1.8 MG/DL (0.55-1.30) H Estimat Glomerular Filtration Rate 17.7 mL/min (>60) 39.4 mL/min (>60) Glucose Level 129 MG/DL (74-106) H 143 MG/DL (74-106) H Calcium Level 9.3 MG/DL (8.5-10.1) 7.8 MG/DL (8.5-10.1) L Total Bilirubin 1.2 MG/DL (0.2-1.0) H 1.2 MG/DL (0.2-1.0) H Direct Bilirubin 0.2 MG/DL (0.0-0.3) 0.2 MG/DL (0.0-0.3) Aspartate Amino Transf (AST/SGOT) 25 U/L (15-37) 23 U/L (15-37) Alanine Aminotransferase (ALT/SGPT) 24 U/L (12-78) 20 U/L (12-78) Alkaline Phosphatase 80 U/L (46-116) 59 U/L (46-116) Total Creatine Kinase 523 U/L (26-308) H 539 U/L (26-308) H Troponin I 0.000 ng/mL (0.000-0.056) Pro-B-Type Natriuretic Peptide 45 pg/mL (0-125) Total Protein 9.4 G/DL (6.4-8.2) H 7.0 G/DL (6.4-8.2) Albumin 4.3 G/DL (3.4-5.0) 3.5 G/DL (3.4-5.0) Globulin 5.1 g/dL 3.5 g/dL Albumin/Globulin Ratio 0.8 (1.0-2.7) L 1.0 (1.0-2.7) Urine Color Gayle Pale yellow Urine Appearance Cloudy Clear Urine pH 5 (4.5-8.0) 5 (4.5-8.0) Urine Specific [place] 1.025 (1.005-1.035) 1.025 (1.005-1.035) Urine Protein 3+ (NEGATIVE) H 2+ (NEGATIVE) H Urine Glucose (UA) Negative (NEGATIVE) Negative (NEGATIVE) Urine Ketones 1+ (NEGATIVE) H Negative (NEGATIVE) Urine Blood 1+ (NEGATIVE) H Negative (NEGATIVE) Urine Nitrite Negative (NEGATIVE) Negative (NEGATIVE) Urine Bilirubin 1+ (NEGATIVE) H Negative (NEGATIVE) Urine Ictotest Negative (NEGATIVE) Urine Urobilinogen 1 MG/DL (0.0-1.0) H Normal MG/DL (0.0-1.0) Urine Leukocyte Esterase 1+ (NEGATIVE) H Negative (NEGATIVE) Urine RBC 0-2 /HPF (0 - 0) H 0-2 /HPF (0 - 0) H Urine WBC 0-2 /HPF (0 - 0) 0-2 /HPF (0 - 0) Urine Squamous Epithelial Cells Few /LPF (NONE/OCC) Occasional /LPF Urine Bacteria Many /HPF (NONE) H Occasional /HPF (NONE) Urine Hyaline Casts 10-15 /LPF (NONE) H 2-4 /LPF (NONE) H Urine Random Sodium < 20 mmol/L (20-110) L < 20 mmol/L (20-110) L Urine Creatinine 576.2 MG/DL (30.0-125.0) H Urine Opiates Screen Negative (NEGATIVE) Urine Barbiturates Screen Negative (NEGATIVE) Phencyclidine (PCP) Screen Negative (NEGATIVE) Urine Amphetamines Screen Positive (NEGATIVE) H Urine Benzodiazepines Screen Negative (NEGATIVE) Urine Cocaine Screen Negative (NEGATIVE) Urine Marijuana (THC) Screen Positive (NEGATIVE) H Erythrocyte Sedimentation Rate 23 MM/HR (0-20) H Hemoglobin A1c 5.5 % (4.3-6.0) Uric Acid 6.3 MG/DL (2.6-7.2) Phosphorus Level 3.3 MG/DL (2.5-4.9) Magnesium Level 2.1 MG/DL (1.8-2.4) C-Reactive Protein, Quantitative < 0.4 mg/dL (0.00-0.90) Triglycerides Level 44 MG/DL (30-150) Cholesterol Level 129 MG/DL (< 200) LDL Cholesterol 80 mg/dL (<100) HDL Cholesterol 44 MG/DL (40-60) Cholesterol/HDL Ratio 2.9 (3.3-4.4) L Thyroid Stimulating Hormone (TSH) 1.222 uiU/mL (0.358-3.740) Free Thyroxine 0.89 NG/DL (0.76-1.46) Free Triiodothyronine 2.0 pg/mL (2.3-4.2) L Cortisol Pending Urine Fine Granular Casts 2-4 /LPF (NONE) H Urine Eosinophils None seen (NONE SEEN) Urine Osmolality 797 mOsm/kg (429-449) H Urine Random Chloride 47 mmol/L (55-125) L Microbiology Date/Time Source Procedure Growth Status 03/03/19 22:40 Urine,Clean Catch Urine Culture - Preliminary NO GROWTH Resulted Height (Feet): 5 Height (Inches): 4.00 Weight (Pounds): 155 Medications Current Medications Medications (Trade) Dose Ordered Sig/Cole Route PRN Reason Start Time Stop Time Status Last Admin Dose Admin Acetaminophen (Tylenol) 650 mg Q4H PRN ORAL fever 03/03/19 23:30 04/02/19 23:29 Clonidine HCl (Catapres Tab) 0.1 mg Q4H PRN ORAL For High Blood Pressure 03/03/19 23:30 04/02/19 23:29 Dextrose (Dextrose 50%) 25 ml Q30M PRN IV Hypoglycemia 03/03/19 23:30 04/02/19 23:29 Dextrose (Dextrose 50%) 50 ml Q30M PRN IV Hypoglycemia 03/03/19 23:30 04/02/19 23:29 Dextrose/Sodium Chloride 1,000 ml @ 200 mls/hr Q5H IV 03/03/19 23:30 04/02/19 23:29 03/04/19 09:48 Heparin Sodium (Porcine) (Heparin 5000 units/ml) 5,000 units EVERY 12 HOURS SUBQ 03/04/19 09:00 04/03/19 08:59 03/04/19 08:20 Lorazepam (Ativan 2mg/ml 1ml) 0.5 mg Q4H PRN IV For Anxiety 03/03/19 23:30 03/10/19 23:29 Morphine Sulfate (Morphine Sulfate) 1 mg EVERY 4 HOURS PRN IVP For Pain 03/03/19 23:30 03/10/19 23:29 Ondansetron HCl (Zofran) 4 mg Q6H PRN IVP Nausea & Vomiting 03/03/19 23:30 04/02/19 23:29 Polyethylene Glycol (Miralax) 17 gm HSPRN PRN ORAL Constipation 03/03/19 23:30 04/02/19 23:29 Zolpidem Tartrate (Ambien) 5 mg HSPRN PRN ORAL Insomnia 03/03/19 23:30 03/10/19 23:29 Assessment/Plan Problem List: (1) Acute renal failure ICD Codes: N17.9 - Acute kidney failure, unspecified SNOMED: 52107484 Qualifiers: Qualified Codes: N17.9 - Acute kidney failure, unspecified (2) BPH (benign prostatic hyperplasia) ICD Codes: N40.0 - Benign prostatic hyperplasia without lower urinary tract symptoms SNOMED: 903821984 (3) Amphetamine abuse ICD Codes: F15.10 - Other stimulant abuse, uncomplicated SNOMED: 33782307 Assessment/Plan: dueñas iv fluids renal US symptomatic treatment might need urology Stas Saenz MD Mar 04, 2019 12:37
--- NOTE | 2019-03-04 12:48 | Consultation ---
Consult Note Consult Note asked to eval for renal failure ER The patient presents with total body pain. He also feels muscle aches. He denies having fevers or chills. When asked about chest pain he says my whole body hurts. He has had any vomiting or diarrhea. The patient has a history of substance abuse in the past. Uncoded Allergies: PENICILLIN (Allergy, Mild, 06/04/18) Social History: Reports: smoking, drug use From home Reviewed Nursing Documentation: PMH: Agreed; PSxH: Agreed Past Medical History: No History, Except For Hx Cardiac Problems: Yes Hx Gastrointestinal Problems: Yes - cirrosis, gallbadder removed examined complains of urinary Sx Assessment/Plan (1) Acute renal failure (2) BPH (benign prostatic hyperplasia) (3) Amphetamine abuse hydrate flomax monitor renal parameters BP in check Ketan Orellana MD Mar 04, 2019 12:48
[2019-03-04] MEDS ORDERED: HYDROcodone/Acetamin 5/325 tab ORAL PRN (13:00)
--- NOTE | 2019-03-04 13:04 | Diagnostic Imaging Report ---
Indication: Chest pain Technique: One view of the chest Comparison: none Findings: Lungs and pleural spaces are clear. The heart size is normal. The aorta is elongated Impression: No acute process
[2019-03-04] MEDS: Tamsulosin 0.4mg cap ORAL SCH ×2 (13:09→17:27)
[2019-03-04] MEDS: Docusate 100mg cap ORAL SCH ×2 (13:09→17:27)
--- NOTE | 2019-03-04 14:33 | NUR ---
CASE MANAGEMENT: INITIAL REVIEW 03/03/2019 53 YO M LUCIA FROM HOME CC: GEN BODY ACHE. PMHx: LIVER CIRRHOSIS. SI:ACUTE RENAL FAILURE. T 97.5 HR 122 RR 20 B/P 90/50 SATS 100% ON RA NA 131 CL 95 BUN 43 CR 3.6 GLU 129 TBILI 1.2 TOTAL CK 523 UTOX (+METH AND THC) IS: NS BOLUS X2 TORADOL IV X1 PATIENT ADMITTED TO MED/SURG 03/03/2019 @ 2233 DCP: PATIENT TO BE DISCHARGED TO HOME ONCE MEDICALLY CLEARED. PLAN OF CARE: UROLOGY CONSULT RENAL US 03/04/2019 SI:ACUTE RENAL FAILURE. T 97.5 HR 72 RR 19 B/P 115/69 SATS 98% ON RA ESR 23 NA 134 K 3.1 BUN 36 CR 1.8 GLU 143 CA 7.8 TBILI 1.2 TOTAL CK 539 IS: IVF @ 75 ml/HR PROTONIX PO Q12H K DUR PO BID FLOMAX PO BID MED/SURG STATUS DCP: PATIENT TO BE DISCHARGED TO HOME ONCE MEDICALLY CLEARED. PLAN OF CARE: UROLOGY CONSULT RENAL US IVF Addendum: 03/04/19 at 1442 by Mehnaz Sharp CM INTERQUAL
[2019-03-04 16:00] VITALS: BP 103/63
--- NOTE | 2019-03-04 16:37 | NUR ---
NURSE NOTES: attempted insert dueñas per dr. Luo, tried x2 with resistance. pt c/o pain and discomfort. pt was still able to urinate with urinal with no retaining urine. Bladder scan done with 75ml pvd. Dr. luo notified regarding pt's condition and received order to cancel f/c.
--- NOTE | 2019-03-04 19:11 | NUR ---
HAND-OFF: Report given to Katie Lebron.
--- NOTE | 2019-03-04 19:40 | NUR ---
NURSE NOTES: Received patient awake,alert,verbal,resting in bed comfortably without complaints.
[2019-03-04 20:00] VITALS: BP 104/62
--- NOTE | 2019-03-04 23:48 | History & Physical ---
History and Physical History & Physicial The patient was seen and examined at bedside and all new and available data was reviewed in the patients chart. Last 24 Hour Vital Signs Date Time Temp Pulse Resp B/P (MAP) Pulse Ox O2 Delivery O2 Flow Rate FiO2 03/04/19 21:02 Room Air 03/04/19 20:00 98.4 71 18 104/62 (76) 98 03/04/19 16:00 97.9 81 17 103/63 (76) 98 03/04/19 12:00 97.5 72 19 115/69 (84) 98 03/04/19 09:00 Room Air 03/04/19 08:00 98.2 61 18 110/63 (79) 98 03/04/19 04:00 97.7 61 16 104/70 (81) 99 03/04/19 01:45 Room Air F/U Labs F/U with Renal Recommendation (Patient was seen earlier today. Signature timestamp does not reflect patient encounter time) Joseph Sahne MD, MD Mar 04, 2019 23:48
[2019-03-05] MEDS: D5NS 1,000 ML IV SCH (02:02)
[2019-03-05 04:00] VITALS: BP 118/70
[2019-03-05] MEDS ORDERED: D5NS 1000ml IV ONE (06:51)
[2019-03-05 07:06] LABS: BASOPHILS % (AUTO) 1.1 % (0.0-2.0); CREATINE KINASE 302 U/L (26-308); EOSINOPHILS % (AUTO) 2.9 % (0.0-3.0); GAMMA GLUTAMYL TRANSPEPTIDASE 11 U/L (5-85); HEMATOCRIT 34.8 % (42.0-52.0); HEMOGLOBIN 11.6 G/DL (14.2-18.0); LYMPHOCYTES % (AUTO) 41.5 % (20.0-45.0); MEAN CORPUSCULAR VOLUME 91 FL (80-99); MONOCYTES % (AUTO) 9.4 % (1.0-10.0); NEUTROPHILS % (AUTO) 45.2 % (45.0-75.0); PLATELET COUNT 184 K/UL (150-450); RED BLOOD COUNT 3.82 M/UL (4.70-6.10); RED CELL DISTRIBUTION WIDTH 11.6 % (11.6-14.8); WHITE BLOOD COUNT 5.6 K/UL (4.8-10.8)
--- NOTE | 2019-03-05 07:19 | NUR ---
HAND-OFF: Report given to Alvina Vieira RN.
--- NOTE | 2019-03-05 07:41 | NUR ---
NURSE NOTES: pt in bed with no sob nor in any form of distress noted. pt voided with no s/s of urinary retention. denies any pain nor discomfort. Breathing regular and unlabored. bed in lowest position. call light within reach at all time. will continue to monitor
[2019-03-05 07:43] LABS: ALANINE AMINOTRANSFERASE 18 U/L (12-78); ALBUMIN 3.1 G/DL (3.4-5.0); ALBUMIN/GLOBULIN RATIO 0.9 (1.0-2.7); ALKALINE PHOSPHATASE 51 U/L (46-116); ANION GAP 7 mmol/L (5-15); ASPARTATE AMINO TRANSFERASE 21 U/L (15-37); BILIRUBIN,TOTAL 0.7 MG/DL (0.2-1.0); BLOOD UREA NITROGEN 19 mg/dL (7-18); CALCIUM 7.9 MG/DL (8.5-10.1); CARBON DIOXIDE 23 MMOL/L (21-32); CHLORIDE 108 MMOL/L (98-107); PHOSPHORUS 1.9 MG/DL (2.5-4.9); POTASSIUM 4.4 MMOL/L (3.5-5.1); SODIUM 138 MMOL/L (136-145)
[2019-03-05 08:00] VITALS: BP 125/71
[2019-03-05 08:02] LABS: CREATININE 1.1 MG/DL (0.55-1.30)
[2019-03-05] MEDS: Tamsulosin 0.4mg cap ORAL SCH (08:53)
[2019-03-05] MEDS: Docusate 100mg cap ORAL SCH ×2 (08:54→14:05)
[2019-03-05] MEDS: Heparin 5000 units/ml inj SUBQ SCH (08:56)
[2019-03-05] MEDS: Phospha 250 Neutral tab ORAL SCH ×2 (09:39→14:05)
[2019-03-05 12:00] VITALS: BP 114/68
--- NOTE | 2019-03-05 13:04 | Nephrology Progress Note ---
Assessment/Plan Problem List: (1) Acute renal failure (2) BPH (benign prostatic hyperplasia) (3) Amphetamine abuse Assessment (1) Acute renal failure resolved (2) BPH (benign prostatic hyperplasia) (3) Amphetamine abuse Plan stop hydrate flomax monitor renal parameters BP in check ? DC Subjective ROS Limited/Unobtainable: No Objective Objective Last 24 Hour Vital Signs Date Time Temp Pulse Resp B/P (MAP) Pulse Ox O2 Delivery O2 Flow Rate FiO2 03/05/19 12:00 98.1 59 18 114/68 (83) 99 03/05/19 09:00 Room Air 03/05/19 08:00 98.0 72 18 125/71 (89) 98 03/05/19 04:00 97.1 60 18 118/70 (86) 100 03/04/19 21:02 Room Air 03/04/19 20:00 98.4 71 18 104/62 (76) 98 03/04/19 16:00 97.9 81 17 103/63 (76) 98 Intake and Output 03/04/19 03/05/19 19:00 07:00 Intake Total 1875 ml 1240 ml Balance 1875 ml 1240 ml Intake Oral 340 ml IV Total 675 ml 900 ml Other 1200 ml # Voids 4 Laboratory Tests 03/05/19 05:45: White Blood Count 5.6, Red Blood Count 3.82L, Hemoglobin 11.6L, Hematocrit 34.8L , Mean Corpuscular Volume 91, Mean Corpuscular Hemoglobin 30.4, Mean Corpuscular Hemoglobin Concent 33.4, Red Cell Distribution Width 11.6, Platelet Count 184, Mean Platelet Volume 8.1, Neutrophils (%) (Auto) 45.2, Lymphocytes (% ) (Auto) 41.5, Monocytes (%) (Auto) 9.4, Eosinophils (%) (Auto) 2.9, Basophils ( %) (Auto) 1.1, Sodium Level 138, Potassium Level 4.4, Chloride Level 108H, Carbon Dioxide Level 23, Anion Gap 7, Blood Urea Nitrogen 19H, Creatinine 1.1, Estimat Glomerular Filtration Rate > 60, Glucose Level 96, Hemoglobin A1c 5.3, Uric Acid 4.0, Calcium Level 7.9L, Phosphorus Level 1.9L, Magnesium Level 1.8, Total Bilirubin 0.7, Gamma Glutamyl Transpeptidase 11, Aspartate Amino Transf ( AST/SGOT) 21, Alanine Aminotransferase (ALT/SGPT) 18, Alkaline Phosphatase 51, Total Creatine Kinase 302, Total Protein 6.4, Albumin 3.1L, Globulin 3.3, Albumin/Globulin Ratio 0.9L Height (Feet): 5 Height (Inches): 4.00 Weight (Pounds): 155 General Appearance: no apparent distress Objective no change Ketan Orellana MD Mar 05, 2019 13:04
--- NOTE | 2019-03-05 13:39 | Pulmonology Progress Note ---
Assessment/Plan Problems: (1) Acute renal failure (2) BPH (benign prostatic hyperplasia) (3) Amphetamine abuse Assessment/Plan renal parameters better urinating better dc home Subjective ROS Limited/Unobtainable: No Constitutional: Reports: no symptoms HEENT: Repors: no symptoms Respiratory: Reports: no symptoms Allergies: Coded Allergies: PENICILLINS (Verified Allergy, Intermediate, 02/17/17) Uncoded Allergies: PENICILLIN (Allergy, Mild, 06/04/18) Objective Last 24 Hour Vital Signs Date Time Temp Pulse Resp B/P (MAP) Pulse Ox O2 Delivery O2 Flow Rate FiO2 03/05/19 12:00 98.1 59 18 114/68 (83) 99 03/05/19 09:00 Room Air 03/05/19 08:00 98.0 72 18 125/71 (89) 98 03/05/19 04:00 97.1 60 18 118/70 (86) 100 03/04/19 21:02 Room Air 03/04/19 20:00 98.4 71 18 104/62 (76) 98 03/04/19 16:00 97.9 81 17 103/63 (76) 98 Intake and Output 03/04/19 03/05/19 19:00 07:00 Intake Total 1875 ml 1240 ml Balance 1875 ml 1240 ml Intake Oral 340 ml IV Total 675 ml 900 ml Other 1200 ml # Voids 4 General Appearance: WD/WN HEENT: normocephalic, atraumatic Respiratory/Chest: chest wall non-tender, lungs clear Cardiovascular: normal rate, regular rhythm Abdomen: normal bowel sounds, soft, non tender Genitourinary: normal external genitalia Skin: no lesions Microbiology Date/Time Source Procedure Growth Status 03/03/19 22:40 Urine,Clean Catch Urine Culture - Preliminary Mixed Gram Positive Organism Resulted Laboratory Tests 03/05/19 05:45: White Blood Count 5.6, Red Blood Count 3.82L, Hemoglobin 11.6L, Hematocrit 34.8L , Mean Corpuscular Volume 91, Mean Corpuscular Hemoglobin 30.4, Mean Corpuscular Hemoglobin Concent 33.4, Red Cell Distribution Width 11.6, Platelet Count 184, Mean Platelet Volume 8.1, Neutrophils (%) (Auto) 45.2, Lymphocytes (% ) (Auto) 41.5, Monocytes (%) (Auto) 9.4, Eosinophils (%) (Auto) 2.9, Basophils ( %) (Auto) 1.1, Sodium Level 138, Potassium Level 4.4, Chloride Level 108H, Carbon Dioxide Level 23, Anion Gap 7, Blood Urea Nitrogen 19H, Creatinine 1.1, Estimat Glomerular Filtration Rate > 60, Glucose Level 96, Hemoglobin A1c 5.3, Uric Acid 4.0, Calcium Level 7.9L, Phosphorus Level 1.9L, Magnesium Level 1.8, Total Bilirubin 0.7, Gamma Glutamyl Transpeptidase 11, Aspartate Amino Transf ( AST/SGOT) 21, Alanine Aminotransferase (ALT/SGPT) 18, Alkaline Phosphatase 51, Total Creatine Kinase 302, Total Protein 6.4, Albumin 3.1L, Globulin 3.3, Albumin/Globulin Ratio 0.9L Current Medications Medications (Trade) Dose Ordered Sig/Cole Route PRN Reason Start Time Stop Time Status Last Admin Dose Admin Acetaminophen (Tylenol) 650 mg Q4H PRN ORAL fever 03/03/19 23:30 04/02/19 23:29 Acetaminophen/ Hydrocodone Bitart ([place] 5/325) 1 tab Q4H PRN ORAL Moderate Pain (Pain Scale 4-6) 03/04/19 13:00 03/11/19 12:59 Clonidine HCl (Catapres Tab) 0.1 mg Q4H PRN ORAL BP over 165 syst 03/04/19 13:00 04/02/19 12:59 Dextrose (Dextrose 50%) 25 ml Q30M PRN IV Hypoglycemia 03/03/19 23:30 04/02/19 23:29 Dextrose (Dextrose 50%) 50 ml Q30M PRN IV Hypoglycemia 03/03/19 23:30 04/02/19 23:29 Docusate Sodium (Colace) 100 mg THREE TIMES A DAY ORAL 03/04/19 13:00 04/03/19 12:59 03/05/19 08:54 Heparin Sodium (Porcine) (Heparin 5000 units/ml) 5,000 units EVERY 12 HOURS SUBQ 03/04/19 09:00 04/03/19 08:59 03/05/19 08:56 Lorazepam (Ativan 2mg/ml 1ml) 0.5 mg Q4H PRN IV For Anxiety 03/03/19 23:30 03/10/19 23:29 Ondansetron HCl (Zofran) 4 mg Q6H PRN IVP Nausea & Vomiting 03/03/19 23:30 04/02/19 23:29 Pantoprazole (Protonix) 40 mg EVERY 12 HOURS ORAL 03/04/19 21:00 04/03/19 20:59 03/05/19 08:53 Phosphorus (Phospha 250 Neutral) 250 mg THREE TIMES A DAY ORAL 03/05/19 09:00 04/04/19 08:59 03/05/19 09:39 Polyethylene Glycol (Miralax) 17 gm HSPRN PRN ORAL Constipation 03/03/19 23:30 04/02/19 23:29 Tamsulosin HCl (Flomax) 0.4 mg BID ORAL 03/04/19 13:00 04/03/19 12:59 03/05/19 08:53 Zolpidem Tartrate (Ambien) 5 mg HSPRN PRN ORAL Insomnia 03/03/19 23:30 03/10/19 23:29 Stas Saenz MD Mar 05, 2019 13:39
--- NOTE | 2019-03-05 15:19 | NUR ---
NURSE NOTES: pt discharged to home picked up by Rene with stable condition. pt denies any pain nor discomfort. pt voided with no retention. All discharge instruction given to pt and verbalized understanding.iv heplock removed and covered with gauze and taped. vss.
--- NOTE | 2019-03-05 15:57 | NUR ---
INSURANCE UPDATED CLINICALS and REVIEW HAVE BEEN FAXED TO: PLEASE FAX THE REVIEW AND CLINICAL TO [facility]ALTH [facility] [phone] REPORTED TO: DEEDEE MCCOY# [id number] FAX CLINICALS TO: [phone]
--- NOTE | 2019-03-05 19:46 | Discharge Summary ---
Discharge Summary Hospital Course Date of Admission Mar 03, 2019 at 22:33 Date of Discharge Mar 05, 2019 at 15:19 Admitting Diagnosis ACUTE RENAL FAILURE SIMONE Nolasco is a 53 year old male who was admitted on Mar 03, 2019 at 22:33 for Acute Renal Failure Hospital Course Discharge Discharge Disposition Patient was discharged to Joseph Guillen MD Mar 05, 2019 19:46
--- NOTE | 2019-03-05 20:30 | History and Physical Report ---
DATE OF ADMISSION: 03/03/2019 CHIEF COMPLAINT: Pain and weakness. HISTORY OF PRESENT ILLNESS: This is a 53-year-old gentleman with past medical history significant for BPH who presented to the hospital complaining about general body pain, muscle aches. Denies any fever or chills. Denies any particular chest pain but general body pain. Denies any nausea or vomiting. He has a history of substance abuse in the past. Pain is 10/10 in intensity, aching all over the body, constant. Shortly after initial evaluation in the emergency, the patient was admitted to the hospital with acute kidney failure with amphetamine abuse and dehydration. PAST MEDICAL HISTORY/PASTSURGICAL HISTORY: As above history of BPH, acid reflux. MEDICATIONS: Please refer to medication reconciliation. ALLERGIES: Penicillin. SOCIAL HISTORY: The patient has substance abuse, amphetamine. Denies any smoking or alcohol. FAMILY HISTORY: Noncontributory. REVIEW OF SYSTEMS: Mostly as above. Denies any dysuria, frequency, hematuria, hematochezia. PHYSICAL EXAMINATION: VITAL SIGNS: On admission from the ER, temperature 97.5, pulse of 122, respirations 20, and blood pressure 90/50. GENERAL: The patient awake and responsive, no acute distress. HEAD AND NECK: Pupils are reactive to light. Extraocular movements are intact. Neck was supple. No JVD. LUNGS: Good air entry. No wheezing or rales. HEART: S1 and S2. Regular rhythm. No gallops. ABDOMEN: Soft, nondistended, and nontender. Positive bowel sounds. EXTREMITIES: No cyanosis, clubbing, edema. NEUROLOGIC: Cranial nerves II through XII grossly intact. Motor is 5/5 in all extremities. Gait is intact. RECTAL/GENITOURINARY: Refused and deferred. PSYCHIATRIC: Mood and affect is intact. LABORATORY DATA: On admission WBC of 7.4, hemoglobin 14, hematocrit 42, platelet 219,000. Sodium 131, potassium 3.8, chloride 95, bicarbonate 21, BUN 43, creatinine is 3.6, and glucose is 129. Total CK is 523. Troponin 0.00. PT of 10, INR 1.0, PTT of 23. Urine drug screen positive for amphetamine as well as marijuana. Urinalysis is cloudy, +3 protein and many bacteria, 10 to 15 hyaline casts. Chest x-ray was noted to be no acute process, lungs and pleural spaces are clear. ASSESSMENT: 1. Acute kidney failure with ATN. 2. Hyponatremia. 3. BPH. 4. Amphetamine abuse. 5. Dehydration. PLAN: Admit the patient to Med/Surg. Start the patient on IV hydration. Follow up with Dr. Saenz, Pulmonary Critical Care as well as Dr. Orellana from Nephrology. The patient is on aggressive IV hydration. Monitor laboratory. Code status is Full Code. DVT prophylaxis with heparin subcutaneous. Joseph Guillen M.D. DR: Oskar JOB#: [id number] CC:
--- NOTE | 2019-03-05 23:00 | Discharge Summary ---
DATE OF ADMISSION: 03/03/2019 DATE OF DISCHARGE: 03/05/2019 HOSPITAL COURSE: This is a 53-year-old gentleman with past medical history significant for BPH as well as substance abuse amphetamine, who was presented to hospital complaining generalized body ache. Shortly after initial evaluation, the patient was noted to have acute renal failure with severe dehydration. Throughout the hospital course, the patient was followed by Dr. Ketan Orellana from Nephrology and Dr. Saenz, Pulmonary Critical Care. The patient's status gradually improved on aggressive IV hydration and subsequently was discharged home to be followed with primary care physician as an outpatient. FINAL DIAGNOSES: 1. Acute renal failure. 2. Hyponatremia. 3. BPH. 4. Amphetamine abuse. MEDICATION ON DISCHARGE: Continue discharge medication list. ACTIVITY: As tolerated. DIET: Renal diet. FOLLOWUP: The patient was advised to follow up with the primary physician within one week. oJseph Guillen M.D. DR: TERI JOB#: [id number] CC:
== END 2019-03-05 15:19 | disposition home or self-care (01) | DRG 469 ==
LOC: EDBD 19:36 → EMR 20:11 → 4E 22:33 → EDBEDREQ 23:12
DX: N17.9 Acute kidney failure, unspecified (principal); E87.1 Hypo-osmolality and hyponatremia; E86.0 Dehydration; F15.10 Other stimulant abuse, uncomplicated; N40.0 Benign prostatic hyperplasia without lower urinary tract symptoms; Z88.0 Allergy status to penicillin
CPT/HCPCS: 36415; 71045; 80053; 80061; 80307; 81001; 81003; 82248; 82436; 82533; 82550; 82570; 82977; 83036; 83735; 83880; 83935; 84100; 84153; 84300; 84439; 84443; 84481; 84484; 84550; 85025; 85610; 85651; 85730; 86140; 87086; 89050; 93005; 96360; 99285; C9399; J8499

== ENCOUNTER 2019-07-24 22:05 | Inpatient (IN) | payer MEDICAID ==
[~2019-07-24] VITALS: Ht 165.1 cm; Wt 63.5 kg
[~2019-07-24 22:05] MED LIST changes: +UNOBMED
--- NOTE | 2019-07-24 22:07 | NUR ---
ED Nurse Note: Pt Brought in by ambulance from home c/o full body cramping, Hx cirrohsis, NH and substance abuse, Pt A&OX4. VSS
[2019-07-24 22:09] VITALS: BP 130/85
--- NOTE | 2019-07-24 22:32 | Emergency Room Report ---
History of Present Illness General Chief Complaint: Abdominal Pain Source: Patient Present Illness HPI Patient is a 53-year-old male presents after increased generalized pain and cramping. Patient reports having onset of symptoms for the past few days. He reports having similar symptoms in the past. He denies any medication use currently. He denies any drug use. He states that he does not drink alcohol regularly. He reports having prior history of hypokalemia in the past. Reports of increased cramping through his hands and legs. Allergies: Coded Allergies: PENICILLINS (Verified Allergy, Intermediate, 02/17/17) Uncoded Allergies: PENICILLIN (Allergy, Mild, hives, 07/27/19) Patient History Past Medical History: see triage record Reviewed Nursing Documentation: PMH: Agreed; PSxH: Agreed Nursing Documentation-PMH Hx Cardiac Problems: Yes - HI Hx Hypertension: No Hx Pacemaker: No Hx Asthma: No Hx COPD: No Hx Diabetes: No Hx Gastrointestinal Problems: Yes - Gastroenteritis Hx Dialysis: No Hx Cerebrovascular Accident: No Hx Seizures: No Review of Systems All Other Systems: negative except mentioned in HPI Physical Exam Vital Signs Date Time Temp Pulse Resp B/P (MAP) Pulse Ox O2 Delivery O2 Flow Rate FiO2 07/24/19 22:00 98.8 107 19 130/85 (100) 99 Room Air Sp02 EP Interpretation: reviewed, normal General Appearance: normal inspection, well appearing, no apparent distress, alert, GCS 15, non-toxic Head: atraumatic ENT: normal ENT inspection, hearing grossly normal, normal voice Neck: normal inspection, full range of motion, supple, no bony tend Respiratory: normal inspection, lungs clear, normal breath sounds, no respiratory distress, no retraction, no wheezing Cardiovascular #1: regular rate, rhythm, no edema Gastrointestinal: normal inspection, normal bowel sounds, non tender, soft, no guarding, no hernia Genitourinary: no CVA tenderness Musculoskeletal: normal inspection, back normal, normal range of motion Neurologic: alert, heel splitter III-XII nml as tested, responsive, speech normal, other - hyperreflexia bilateral lower extremities Psychiatric: normal inspection, judgement/insight normal, mood/affect normal Medical Decision Making Diagnostic Impression: Primary Impression: Hypercalcemia Additional Impressions: Acute pancreatitis Dehydration ER Course Patient presented for increased abdominal discomfort and vomiting. Differential diagnosis include was not limited to electrolyte abnormality, gastroenteritis, pancreatitis, gastritis among others. Because of complexity of patient's case laboratory tests and imaging studies were ordered. Patient was noted to have some initial signs of dehydration and had multiple episodes of vomiting. He was started on IV fluids. Laboratory testing showed some evidence of pancreatitis as well as hypercalcemia. Patient was noted to have some initial QT prolongation was given IV magnesium. Dr. Joseph Giullen was contacted for inpatient management due to prior admission Laboratory Tests Test 07/24/19 22:18 07/25/19 06:40 White Blood Count 11.3 K/UL (4.8-10.8) H Pending Red Blood Count 5.81 M/UL (4.70-6.10) Pending Hemoglobin 17.7 G/DL (14.2-18.0) Pending Hematocrit 49.1 % (42.0-52.0) Pending Mean Corpuscular Volume 84 FL (80-99) Pending Mean Corpuscular Hemoglobin 30.4 PG (27.0-31.0) Pending Mean Corpuscular Hemoglobin Concent 36.1 G/DL (32.0-36.0) H Pending Red Cell Distribution Width 10.5 % (11.6-14.8) L Pending Platelet Count 293 K/UL (150-450) Pending Mean Platelet Volume 7.6 FL (6.5-10.1) Pending Neutrophils (%) (Auto) 68.1 % (45.0-75.0) Pending Lymphocytes (%) (Auto) 21.9 % (20.0-45.0) Pending Monocytes (%) (Auto) 8.5 % (1.0-10.0) Pending Eosinophils (%) (Auto) 0.6 % (0.0-3.0) Pending Basophils (%) (Auto) 0.9 % (0.0-2.0) Pending Sodium Level 136 MMOL/L (136-145) Pending Potassium Level 3.7 MMOL/L (3.5-5.1) Pending Chloride Level 92 MMOL/L (98-107) L Pending Carbon Dioxide Level 21 MMOL/L (21-32) Pending Anion Gap 23 mmol/L (5-15) H Blood Urea Nitrogen 36 mg/dL (7-18) H Pending Creatinine 4.5 MG/DL (0.55-1.30) H Pending Estimate Glomerular Filtration Rate 13.7 mL/min (>60) Pending Glucose Level 154 MG/DL (74-106) H Pending Calcium Level 11.3 MG/DL (8.5-10.1) H Pending Total Bilirubin 2.0 MG/DL (0.2-1.0) H Pending Direct Bilirubin 0.3 MG/DL (0.0-0.3) Aspartate Amino Transferase (AST) 65 U/L (15-37) H Pending Alanine Aminotransferase (ALT) 112 U/L (12-78) H Pending Alkaline Phosphatase 123 U/L (46-116) H Pending Troponin I 0.000 ng/mL (0.000-0.056) Total Protein 12.6 G/DL (6.4-8.2) H Pending Albumin 5.8 G/DL (3.4-5.0) H Pending Globulin 6.8 g/dL Pending Lipase 521 U/L (73-393) H Pending Phosphorus Level Pending Magnesium Level Pending Last Vital Signs Date Time Temp Pulse Resp B/P (MAP) Pulse Ox O2 Delivery O2 Flow Rate FiO2 07/24/19 22:09 107 19 Room Air 07/24/19 22:09 98.8 130/85 99 Status: unchanged Disposition: ADMITTED INPATIENT Esvin Valle MD Jul 24, 2019 22:32
[2019-07-24 22:54] LABS: ANION GAP 23 mmol/L (5-15); BLOOD UREA NITROGEN 36 mg/dL (7-18); CALCIUM 11.3 MG/DL (8.5-10.1); CARBON DIOXIDE 21 MMOL/L (21-32); CHLORIDE 92 MMOL/L (98-107); CREATININE 4.5 MG/DL (0.55-1.30); POTASSIUM 3.7 MMOL/L (3.5-5.1); SODIUM 136 MMOL/L (136-145)
[2019-07-24 23:02] LABS: BASOPHILS % (AUTO) 0.9 % (0.0-2.0); EOSINOPHILS % (AUTO) 0.6 % (0.0-3.0); HEMATOCRIT 49.1 % (42.0-52.0); HEMOGLOBIN 17.7 G/DL (14.2-18.0); LYMPHOCYTES % (AUTO) 21.9 % (20.0-45.0); MEAN CORPUSCULAR VOLUME 84 FL (80-99); MONOCYTES % (AUTO) 8.5 % (1.0-10.0); NEUTROPHILS % (AUTO) 68.1 % (45.0-75.0); PLATELET COUNT 293 K/UL (150-450); RED BLOOD COUNT 5.81 M/UL (4.70-6.10); RED CELL DISTRIBUTION WIDTH 10.5 % (11.6-14.8); WHITE BLOOD COUNT 11.3 K/UL (4.8-10.8)
[2019-07-24 23:08] LABS: ALANINE AMINOTRANSFERASE 112 U/L (12-78); ALBUMIN 5.8 G/DL (3.4-5.0); ALKALINE PHOSPHATASE 123 U/L (46-116); ASPARTATE AMINO TRANSFERASE 65 U/L (15-37)
[2019-07-24 23:11] LABS: BILIRUBIN,DIRECT 0.3 MG/DL (0.0-0.3)
[2019-07-24] MEDS ORDERED: LORazepam Inj 2mg/ml 1ml IV ONE (23:30)
[2019-07-25] VITALS (7 sets, daily range): BP systolic 105–135; BP diastolic 70–87
--- NOTE | 2019-07-25 01:00 | NUR ---
NURSE NOTES: Received report from EMILY Rutherford RN. Patient was transferred to Telemetry unit from ER via [facility] for rehab medicine without incident. No signs of acute distress noted; complains of some pain. AOx4; able to make needs known. Ambulates to the bathroom with some assistance. Checked IV site; patent and flushed. No erythema, bleeding, or infiltration noted. Patient put on Tele box; sinus rhythm (90s). Belongings list checked. Clark catheter draining well to gravity. Bed at lowest position, brakes on, siderails up x2. Call light within reach. Will continue to monitor.
--- NOTE | 2019-07-25 01:52 | NUR ---
NURSE NOTES: Called Dr. Giullen for admission orders. Awaiting callback.
--- NOTE | 2019-07-25 06:01 | NUR ---
NURSE NOTES: Called Dr. Guillen again for admission orders. Awaiting callback.
--- NOTE | 2019-07-25 06:18 | NUR ---
NURSE NOTES: Received admission orders from Dr. Guillen. Noted and carried out.
[2019-07-25] MEDS ORDERED: HYDROcodone/Acetamin 5/325 tab ORAL PRN ×3 (06:30→15:08)
[2019-07-25] MEDS ORDERED: Morphine Sulfate 2mg/ml Inj(IV/IM USE ONLY) IVP PRN ×2 (06:30→15:08)
[2019-07-25] MEDS: Heparin 5000 units/ml inj SUBQ SCH ×3 (07:04→21:56)
[2019-07-25 07:20] LABS: BASOPHILS % (AUTO) 0.5 % (0.0-2.0); EOSINOPHILS % (AUTO) 0.8 % (0.0-3.0); HEMATOCRIT 45.9 % (42.0-52.0); HEMOGLOBIN 15.8 G/DL (14.2-18.0); LYMPHOCYTES % (AUTO) 18.8 % (20.0-45.0); MEAN CORPUSCULAR VOLUME 86 FL (80-99); MONOCYTES % (AUTO) 9.6 % (1.0-10.0); NEUTROPHILS % (AUTO) 70.4 % (45.0-75.0); PLATELET COUNT 290 K/UL (150-450); RED BLOOD COUNT 5.33 M/UL (4.70-6.10); RED CELL DISTRIBUTION WIDTH 11.2 % (11.6-14.8); WHITE BLOOD COUNT 8.3 K/UL (4.8-10.8)
--- NOTE | 2019-07-25 07:34 | NUR ---
HAND-OFF: Report given to ROSALIE Cardona. Patient is awake lying semi-beth's watching TV; resting comfortably. Clark catheter draining well to gravity. In stable condition.
[2019-07-25 07:42] LABS: ALANINE AMINOTRANSFERASE 101 U/L (12-78); ALBUMIN 4.8 G/DL (3.4-5.0); ALBUMIN/GLOBULIN RATIO 0.9 (1.0-2.7); ALKALINE PHOSPHATASE 100 U/L (46-116); ANION GAP 17 mmol/L (5-15); ASPARTATE AMINO TRANSFERASE 51 U/L (15-37); BILIRUBIN,TOTAL 1.6 MG/DL (0.2-1.0); BLOOD UREA NITROGEN 40 mg/dL (7-18); CALCIUM 9.5 MG/DL (8.5-10.1); CARBON DIOXIDE 20 MMOL/L (21-32); CHLORIDE 98 MMOL/L (98-107); CREATININE 3.4 MG/DL (0.55-1.30); PHOSPHORUS 6.9 MG/DL (2.5-4.9); POTASSIUM 3.2 MMOL/L (3.5-5.1); SODIUM 135 MMOL/L (136-145)
[2019-07-25 07:43] LABS: BILIRUBIN,DIRECT 0.2 MG/DL (0.0-0.3)
--- NOTE | 2019-07-25 07:52 | NUR ---
NURSE NOTES: Report received from ROSALIE Fernando. Patient shows no signs of distress, complaining of 8/10 pain. No SOB noted. Respirations are even and unlabored on room air. IV site is intact and saline locked. ordered fluids @ 0800. Bed is at lowest position, brakes engaged, siderails x2, bed alarm on, and call light within reach. Pt is in stable condition; will continue to monitor.
[2019-07-25] MEDS ORDERED: D5 1/2NS w/KCl 20mEq 1,000 ML IV SCH (08:00)
--- NOTE | 2019-07-25 09:46 | Diagnostic Imaging Report ---
Indication: Abnormal renal function tests, dysuria Technique: Grayscale and duplex images of the kidneys, retroperitoneum, and bladder were obtained. Comparison: No comparison sonograms. Reference made to abdomen pelvis CT dated 06/04/2018 Findings: Right kidney measures 10.3 cm in length. Left kidney measures 10.2 cm in length. Both kidneys demonstrate normal echogenicity. No hydronephrosis. Right kidney demonstrates a small cortical cyst in the upper pole. Inferior vena cava is not optimally visualized. Bladder is empty, contains a Clark catheter. Calculated prostate volume is 10 mL. Impression: Negative for hydronephrosis Clark catheter Incidental finding small right renal cyst Note limited visualization of the inferior vena cava.
--- NOTE | 2019-07-25 12:45 | NUR ---
CASE MANAGEMENT:REVIEW 53 YR OLD MALE BIBA FROM HOME CC: ABDOMINAL PAIN. NAUSEA AND VOMITING SI: ABDOMINAL PAIN. N/V 98.8 107 19 130/85 99% ON RA WBC+11.3 BUN+36 CR+4.5 IS: IV MAG SULFATE 500CC NS BOLUS 1L NS BOLUS IV ATIVAN : TO TELEMETRY INTERQUAL CRITERIA MET
--- NOTE | 2019-07-25 12:46 | Cardiology Report ---
APPROVED REPORT EKG Measurement Heart [id number] Normal sinus rhythm Right atrial enlargement Right superior axis deviation Pulmonary disease pattern Prolonged QT Abnormal ECG
--- NOTE | 2019-07-25 13:16 | Consultation ---
History of Present Illness General Date patient seen: Jul 25, 2019 Chief Complaint: Abdominal Pain Present Illness HPI 53-year-old male with hx of BPH, CAD, gastritis presented to ER with CC of generalized pain and cramping in hands and knees for the past few days. He reports having similar symptoms in the past. He has some abdominal pain and was diagnosed to have pancreatitis b/o increased lipase. His Ca was elevated as well. He is admitted to telemetry for further management. Allergies: Coded Allergies: PENICILLINS (Verified Allergy, Intermediate, 02/17/17) Uncoded Allergies: PENICILLIN (Allergy, Mild, 06/04/18) Medication History Scheduled Dicyclomine Hcl* (Dicyclomine Hcl*), 10 MG PO QID Phenazopyridine Hcl* (Pyridium*), 100 MG ORAL THREE TIMES A DAY Ranitidine Hcl* (Zantac*), 150 MG ORAL TWICE A DAY Ranitidine Hcl* (Zantac*), 150 MG ORAL TWICE A DAY Tamsulosin Hcl (Tamsulosin Hcl*), 0.4 MG ORAL BEDTIME, (Reported) Scheduled PRN Acetaminophen With Codeine (T#3) (Tylenol #3 Tab*), 1 TAB ORAL Q8H PRN for For Pain Diphenhydramine Hcl* (Diphenhydramine Hcl*), 50 MG ORAL Q8H PRN for Insomnia, ( Reported) Hydrocodone Bit/Acetaminophen 5-325* ([place] 5-325*), 1 TAB ORAL Q6H PRN for For Pain, (Reported) Ibuprofen* (Motrin*), 600 MG ORAL Q8H PRN for For Pain Ondansetron Odt* (Zofran Odt*), 4 MG ORAL Q6H PRN for Nausea & Vomiting Miscellaneous Medications Acetaminophen (Mapap), 500 MG PO, (Reported) Docusate Sodium (Dok), 100 MG PO, (Reported) Unable to Obtain Medications (Unable To Obtain Meds), (Reported) Patient History Healthcare decision maker Resuscitation status Full Code Advanced Directive on File No Past Medical/Surgical History Past Medical/Surgical History: (1) BPH (benign prostatic hyperplasia) Review of Systems All Other Systems: negative except mentioned in HPI Physical Exam General Appearance: WD/WN Lines, tubes and drains: peripheral HEENT: normocephalic Neck: non-tender, normal alignment Respiratory/Chest: chest wall non-tender, lungs clear Breasts: no masses Cardiovascular/Chest: normal peripheral pulses Abdomen: normal bowel sounds, non tender Extremities: normal range of motion Skin Exam: normal pigmentation Last 24 Hour Vital Signs Date Time Temp Pulse Resp B/P (MAP) Pulse Ox O2 Delivery O2 Flow Rate FiO2 07/25/19 12:00 96.7 81 20 126/83 (97) 98 07/25/19 09:00 Room Air 07/25/19 08:00 78 07/25/19 08:00 97.5 78 18 123/87 (99) 98 07/25/19 04:00 97.8 89 18 135/86 (102) 98 07/25/19 04:00 82 07/25/19 01:03 96 07/25/19 01:00 96.4 84 16 125/79 (94) 98 07/25/19 00:53 Room Air 07/24/19 22:09 107 19 Room Air 07/24/19 22:09 98.8 107 19 130/85 99 Room Air 07/24/19 22:00 98.8 107 19 130/85 (100) 99 Room Air Intake and Output 07/24/19 07/25/19 19:00 07:00 Output Total 100 ml Balance -100 ml Output Urine Total 100 ml # Bowel Movements 1 Laboratory Tests Test 07/24/19 22:18 07/25/19 06:40 White Blood Count 11.3 K/UL (4.8-10.8) H 8.3 K/UL (4.8-10.8) Red Blood Count 5.81 M/UL (4.70-6.10) 5.33 M/UL (4.70-6.10) Hemoglobin 17.7 G/DL (14.2-18.0) 15.8 G/DL (14.2-18.0) Hematocrit 49.1 % (42.0-52.0) 45.9 % (42.0-52.0) Mean Corpuscular Volume 84 FL (80-99) 86 FL (80-99) Mean Corpuscular Hemoglobin 30.4 PG (27.0-31.0) 29.6 PG (27.0-31.0) Mean Corpuscular Hemoglobin Concent 36.1 G/DL (32.0-36.0) H 34.4 G/DL (32.0-36.0) Red Cell Distribution Width 10.5 % (11.6-14.8) L 11.2 % (11.6-14.8) L Platelet Count 293 K/UL (150-450) 290 K/UL (150-450) Mean Platelet Volume 7.6 FL (6.5-10.1) 7.8 FL (6.5-10.1) Neutrophils (%) (Auto) 68.1 % (45.0-75.0) 70.4 % (45.0-75.0) Lymphocytes (%) (Auto) 21.9 % (20.0-45.0) 18.8 % (20.0-45.0) L Monocytes (%) (Auto) 8.5 % (1.0-10.0) 9.6 % (1.0-10.0) Eosinophils (%) (Auto) 0.6 % (0.0-3.0) 0.8 % (0.0-3.0) Basophils (%) (Auto) 0.9 % (0.0-2.0) 0.5 % (0.0-2.0) Sodium Level 136 MMOL/L (136-145) 135 MMOL/L (136-145) L Potassium Level 3.7 MMOL/L (3.5-5.1) 3.2 MMOL/L (3.5-5.1) L Chloride Level 92 MMOL/L (98-107) L 98 MMOL/L (98-107) Carbon Dioxide Level 21 MMOL/L (21-32) 20 MMOL/L (21-32) L Anion Gap 23 mmol/L (5-15) H 17 mmol/L (5-15) H Blood Urea Nitrogen 36 mg/dL (7-18) H 40 mg/dL (7-18) H Creatinine 4.5 MG/DL (0.55-1.30) H 3.4 MG/DL (0.55-1.30) H Estimat Glomerular Filtration Rate 13.7 mL/min (>60) 18.9 mL/min (>60) Glucose Level 154 MG/DL (74-106) H 131 MG/DL (74-106) H Calcium Level 11.3 MG/DL (8.5-10.1) H 9.5 MG/DL (8.5-10.1) Total Bilirubin 2.0 MG/DL (0.2-1.0) H 1.6 MG/DL (0.2-1.0) H Direct Bilirubin 0.3 MG/DL (0.0-0.3) 0.2 MG/DL (0.0-0.3) Aspartate Amino Transf (AST/SGOT) 65 U/L (15-37) H 51 U/L (15-37) H Alanine Aminotransferase (ALT/SGPT) 112 U/L (12-78) H 101 U/L (12-78) H Alkaline Phosphatase 123 U/L (46-116) H 100 U/L (46-116) Troponin I 0.000 ng/mL (0.000-0.056) Total Protein 12.6 G/DL (6.4-8.2) H 10.2 G/DL (6.4-8.2) H Albumin 5.8 G/DL (3.4-5.0) H 4.8 G/DL (3.4-5.0) Globulin 6.8 g/dL 5.4 g/dL Lipase 521 U/L (73-393) H 365 U/L (73-393) Phosphorus Level 6.9 MG/DL (2.5-4.9) H Magnesium Level 2.4 MG/DL (1.8-2.4) Albumin/Globulin Ratio 0.9 (1.0-2.7) L Height (Feet): 5 Height (Inches): 5.00 Weight (Pounds): 140 Medications Current Medications Medications (Trade) Dose Ordered Sig/Cole Route PRN Reason Start Time Stop Time Status Last Admin Dose Admin Acetaminophen (Tylenol) 650 mg Q6H PRN ORAL Mild Pain/Temp > 100.5 07/25/19 06:30 08/24/19 06:29 Acetaminophen/ Hydrocodone Bitart ([place] 5/325) 1 tab Q6H PRN ORAL Moderate Pain (Pain Scale 4-6) 07/25/19 06:30 08/01/19 06:29 Acetaminophen/ Hydrocodone Bitart ([place] 5/325) 1 tab Q6H PRN ORAL For Pain 07/25/19 13:15 08/01/19 13:14 UNV Heparin Sodium (Porcine) (Heparin 5000 units/ml) 5,000 units EVERY 8 HOURS SUBQ 07/25/19 06:30 08/24/19 06:29 07/25/19 07:04 Morphine Sulfate (Morphine Sulfate) 2 mg Q4H PRN IVP Severe Pain (Pain Scale 7-10) 07/25/19 06:30 08/01/19 06:29 07/25/19 08:12 Ondansetron HCl (Zofran) 4 mg Q4H PRN IVP Nausea & Vomiting 07/25/19 06:30 08/24/19 06:29 Tamsulosin HCl (Flomax) 0.4 mg BEDTIME ORAL 07/25/19 21:00 08/24/19 20:59 UNV Assessment/Plan Problem List: (1) Acute pancreatitis ICD Codes: K85.90 - Acute pancreatitis without necrosis or infection, unspecified SNOMED: 662282650 (2) Hypercalcemia ICD Codes: E83.52 - Hypercalcemia SNOMED: 07084140 (3) Gastroenteritis ICD Codes: K52.9 - Noninfective gastroenteritis and colitis, unspecified SNOMED: 68828531 (4) BPH (benign prostatic hyperplasia) ICD Codes: N40.0 - Benign prostatic hyperplasia without lower urinary tract symptoms SNOMED: 317733346 Assessment/Plan: npo/ clear liquid iv fluids renal studies renal evaluation symptomatic treatment check lipase in am GI evaluation. Stas Saenz MD Jul 25, 2019 13:16
[2019-07-25] MEDS ORDERED: D5 1/2NS w/KCl 30mEq 1000ml 1,000 ML IV SCH (14:00)
--- NOTE | 2019-07-25 14:49 | Consultation ---
Consult Note Consult Note asked to eval for renal failure- Patient is a 53-year-old male presents after increased generalized pain and cramping. Patient reports having onset of symptoms for the past few days. He reports having similar symptoms in the past. He denies any medication use currently. He denies any drug use. He states that he does not drink alcohol regularly. He reports having prior history of hypokalemia in the past. Reports of increased cramping through his hands and legs. Allergies: PENICILLINS (Verified Allergy, Intermediate, 02/17/17) PENICILLIN (Allergy, Mild, 06/04/18) Hx Cardiac Problems: Yes - SC . Assessment/Plan acute renal failure- ? CKD underlying Hypercalcemia due to dehydration Acute pancreatitis electrolyte imbalance Hydrate I&o Monitor lytes and Chems per orders avoid nephrotoxics Ketan Orellana MD Jul 25, 2019 14:49
--- NOTE | 2019-07-25 15:07 | NUR ---
HAND-OFF: Report given to ROSALIE Gibson. Pt is in stable condition. Belongings verified and signed. Orders transferred. Plan of care endorsed.
--- NOTE | 2019-07-25 15:09 | NUR ---
NURSE NOTES: Received pt from TELE JAMES HALL. pt is alert and orient x4. pt is in RA, no SOB or acte respiratory distress noted. pt has intact iv access RAC 20G is [id number] well. all admission assessments and instructions done and pt verbally confirmed to understand all. Dr ahuja is aware about K 3.2 and other lab results. all needs attended, bed is locked and is in the lowest position, call light within easy reach. will continue to monitor.
--- NOTE | 2019-07-25 16:14 | NUR ---
*-* INSURANCE *-* ALL CLINICALS AND REVIEWS HAVE BEEN FAXED TO: [facility]/ DEPT S/W VARSHA @ [phone] CERT REF# [id number] /PENDING CLINICAL NO POWER WOOD SAW[employer]ER AT THIS TIME.. PLEASE FAX THE REVIEW/CLINICAL FX: [phone]...REV/CLINICAL Addendum: 07/26/19 at 1037 by KRISTAN HIGH CM MARITZA: ESTEVAN P:[phone] F:[phone] REF# [id number]
[2019-07-25] MEDS ORDERED: NS w/KCl 20mEq 1000ml 1,000 ML IV SCH (17:00)
[2019-07-25] MEDS: NS w/KCl 20mEq 1000ml 1,000 ML IV SCH (17:14)
[2019-07-25] MEDS: Tamsulosin 0.4mg cap ORAL SCH (17:15)
[2019-07-25 17:32] LABS: APPEARANCE,URINE CLOUDY; BILIRUBIN, URINE NEGATIVE (NEGATIVE); COLOR,URINE PALE YELLOW; GLUCOSE, URINE (UA) NEGATIVE (NEGATIVE); KETONES,URINE NEGATIVE (NEGATIVE); LEUKOCYTE ESTERASE ,URINE 1+ (NEGATIVE); NITRITE,URINE NEGATIVE (NEGATIVE); PH,URINE 5 (4.5-8.0); PROTEIN,URINE 3+ (NEGATIVE); UROBILINOGEN,URINE NORMAL MG/DL (0.0-1.0)
[2019-07-25] MEDS ORDERED: Tamsulosin 0.4mg cap ORAL SCH ×2 (18:00→21:00)
[2019-07-25] MEDS ORDERED: Docusate 100mg cap ORAL SCH ×2 (18:00)
--- NOTE | 2019-07-25 18:35 | History & Physical ---
History and Physical History & Physicial Dictated for Int Med-DR Guillen no. [id number] Tristin Meyers MD Jul 25, 2019 18:34
[2019-07-25] MEDS ORDERED: Omnipaque-300 100ml vial INJ PRN (18:45)
--- NOTE | 2019-07-25 19:25 | NUR ---
HAND-OFF: Report given to ONIEL WIGGINS. Pt is awake and stable. Pt signed contrast consent form.
--- NOTE | 2019-07-25 20:00 | NUR ---
NURSE NOTES: RECEIVED PT FROM ROSALIE ACHARYA. PT IS AWAKE, AAOX4, ON ROOM AIR, NO ACUTE DISTRESS NOTED. SANTIAGO IS INTACT AND PATENT, DRAINING YELLOW URINE. SANTIAGO ANCHOR IN PLACE. IV ON RIGHT AC 20G IS INTACT AND PATENT. BED IS LOCKED AND LOW, BED ALARMS ACTIVE, SIDE RAILS UP X2, AND CALL LIGHT IS WITHIN REACH. WILL CONTINUE TO MONITOR CLOSELY.
[2019-07-25] MEDS: HYDROcodone/Acetamin 5/325 tab ORAL PRN (21:58)
--- NOTE | 2019-07-25 23:00 | History and Physical Report ---
DATE OF ADMISSION: 07/24/2019 CHIEF COMPLAINT: The patient is a 53-year-old, male, who presents with a chief complaint of generalized pain and general muscle cramps. HISTORY OF PRESENT ILLNESS: The patient was last admitted to [facility] in February 2019 with similar symptoms. Please see history and physical and discharge summary dictated at that time. The patient presented to [facility] emergency room complaining of a three-day history of generalized pain. The patient also had cramping of his hands and legs. The patient states he has a prior history of hypokalemia. The patient was admitted with chief complaint of muscle cramps rule out hypokalemia. REVIEW OF SYSTEMS: CONSTITUTIONAL: The patient denies weight loss or weight gain. The patient denies fevers or chills. HEENT: The patient denies ear or throat pain. The patient denies headache. CARDIOVASCULAR: The patient denies palpitations or chest pain. CHEST: The patient denies wheeze or shortness of breath. ABDOMINAL: The patient denies nausea, vomiting, diarrhea, or constipation. GENITOURINARY: The patient denies dysuria or increased frequency of urination. NEUROMUSCULAR: The patient complains of generalized hands and leg cramping as above. The patient denies seizures. PAST MEDICAL HISTORY: Significant for, 1. Benign prostatic hypertrophy. 2. Gastroesophageal reflux disease. PAST SURGICAL HISTORY: The patient denies. CURRENT MEDICATIONS: The patient denies. ALLERGIES: No known drug allergies. The patient denies allergies to penicillin. SOCIAL HISTORY: The patient is single and lives alone. The patient denies tobacco or alcohol use. PHYSICAL EXAMINATION: VITAL SIGNS: Temperature 97.5, respirations 18, pulse 78, and blood pressure 123/87. GENERAL: The patient is a well-developed and well-nourished male, in no apparent distress. HEENT: Eyes, pupils are equal and responsive to light and accommodation. Extraocular movements are intact. NECK: Supple without lymphadenopathy. CHEST: Lungs are clear to auscultation bilaterally without wheezes or rales. CARDIOVASCULAR: Regular rhythm and rate. S1 and S2 are normal without murmurs, rubs, or gallops. ABDOMEN: Soft, nontender, and nondistended. Positive bowel sounds. No evidence of hepatosplenomegaly. Currently, no rebound or guarding noted. EXTREMITIES: Negative for clubbing, cyanosis, or edema. RECTAL/GENITAL: Not performed. NEUROLOGIC: Cranial nerves II through XII are grossly intact without focal deficits. Motor strength is 5/5 bilaterally. Deep tendon reflexes are 2+ plantar. LABORATORY STUDIES: WBC 11.3, hemoglobin 17.7, hematocrit 49.1, and platelets 292,000. Sodium 136, potassium 3.7, chloride 92, CO2 21, BUN 36, creatinine 4.5, and glucose 154. Calcium elevated at 11.3. AST elevated at 65. ALT elevated at 112. Alkaline phosphatase elevated at 123. Lipase elevated at 521. ASSESSMENT: This is a 53-year-old male. 1. Generalized pain. 2. Generalized muscle cramps. 3. Acute on chronic renal failure. 4. Elevated liver function tests. 5. Acute pancreatitis. 6. Hypercalcemia. 7. Benign prostatic hypertrophy. 8. Gastroesophageal reflux disease. TREATEMENT: 1. Renal failure. A Nephrology consultation has been obtained with Dr. Orellana. We will follow recommendations of Nephrology. The patient does have a history of renal failure in the past. 2. Hypercalcemia. A repeat calcium level is pending. 3. Pancreatitis/elevated liver function tests. A Gastroenterology consultation has been obtained with Dr. Oleg Vergara. Pancreatitis and elevated liver function tests are concerning for common bile duct stone. We will follow recommendations of Gastroenterology. 4. Benign prostatic hypertrophy. 5. Gastroesophageal reflux disease. Tristin Meyers M.D. DR: CEFERINO JOB#: [id number] CC:
[2019-07-26] VITALS: BP 103/61
[2019-07-26 04:00] VITALS: BP 111/62
[2019-07-26] MEDS: Heparin 5000 units/ml inj SUBQ SCH ×3 (06:00→21:53)
[2019-07-26] MEDS: NS w/KCl 20mEq 1000ml 1,000 ML IV SCH (06:01)
[2019-07-26] MEDS: HYDROcodone/Acetamin 5/325 tab ORAL PRN (06:12)
[2019-07-26 06:28] LABS: BASOPHILS % (AUTO) 0.7 % (0.0-2.0); EOSINOPHILS % (AUTO) 2.9 % (0.0-3.0); HEMATOCRIT 37.8 % (42.0-52.0); HEMOGLOBIN 12.9 G/DL (14.2-18.0); MEAN CORPUSCULAR VOLUME 87 FL (80-99); MONOCYTES % (AUTO) 7.9 % (1.0-10.0); NEUTROPHILS % (AUTO) 63.5 % (45.0-75.0); PLATELET COUNT 222 K/UL (150-450); RED BLOOD COUNT 4.35 M/UL (4.70-6.10); RED CELL DISTRIBUTION WIDTH 11.2 % (11.6-14.8); WHITE BLOOD COUNT 8.4 K/UL (4.8-10.8)
[2019-07-26 06:53] LABS: CREATINE KINASE 321 U/L (26-308); GAMMA GLUTAMYL TRANSPEPTIDASE 15 U/L (5-85)
[2019-07-26 07:08] LABS: ALANINE AMINOTRANSFERASE 80 U/L (12-78); ALBUMIN 3.5 G/DL (3.4-5.0); ALBUMIN/GLOBULIN RATIO 0.8 (1.0-2.7); ALKALINE PHOSPHATASE 74 U/L (46-116); AMYLASE 92 U/L (25-115); ANION GAP 10 mmol/L (5-15); ASPARTATE AMINO TRANSFERASE 42 U/L (15-37); BILIRUBIN,TOTAL 1.6 MG/DL (0.2-1.0); BLOOD UREA NITROGEN 28 mg/dL (7-18); CALCIUM 8.2 MG/DL (8.5-10.1); CARBON DIOXIDE 23 MMOL/L (21-32); CHLORIDE 103 MMOL/L (98-107); CHOLESTEROL 115 MG/DL (< 200); CREATININE 1.4 MG/DL (0.55-1.30); HDL CHOLESTEROL 37 MG/DL (40-60); PHOSPHORUS 2.1 MG/DL (2.5-4.9); POTASSIUM 3.4 MMOL/L (3.5-5.1); SODIUM 136 MMOL/L (136-145); TRIGLYCERIDES 48 MG/DL (30-150)
[2019-07-26 07:10] LABS: BILIRUBIN,DIRECT 0.3 MG/DL (0.0-0.3)
--- NOTE | 2019-07-26 07:40 | NUR ---
NURSE NOTES: Received report from Vicki, RN. Patient sleeping. On room air, no signs or distress or labored breathing. Will continue with plan of care.
--- NOTE | 2019-07-26 07:45 | NUR ---
HAND-OFF: Report given to ROSALIE Awad. Pt is in stable condition. Endorsed plan of care.
[2019-07-26 08:00] VITALS: BP 95/60
--- NOTE | 2019-07-26 08:35 | Nephrology Progress Note ---
Assessment/Plan Problem List: (1) Dehydration (2) Hypercalcemia (3) Acute pancreatitis (4) Elevated liver enzymes (5) BPH (benign prostatic hyperplasia) Assessment acute renal failure- resolving ? CKD underlying Hypercalcemia due to dehydration Acute pancreatitis electrolyte imbalance Plan DC Clark Hydrate I&o Monitor lytes and Chems per orders avoid nephrotoxics Subjective ROS Limited/Unobtainable: No Constitutional: Reports: malaise Objective Objective Last 24 Hour Vital Signs Date Time Temp Pulse Resp B/P (MAP) Pulse Ox O2 Delivery O2 Flow Rate FiO2 07/26/19 04:00 97.9 81 16 111/62 (78) 96 07/26/19 00:00 98.1 71 18 103/61 (75) 97 07/25/19 21:00 Room Air 07/25/19 20:00 98.4 78 18 105/70 (82) 97 07/25/19 16:00 97.6 69 20 127/75 (92) 97 07/25/19 15:55 96.8 07/25/19 14:55 96.8 68 19 119/73 (88) 97 07/25/19 12:00 96.7 81 20 126/83 (97) 98 07/25/19 12:00 69 07/25/19 09:00 Room Air Intake and Output 07/25/19 07/26/19 19:00 07:00 Intake Total 335 ml 750 ml Output Total 600 ml Balance 335 ml 150 ml Intake Oral 260 ml IV Total 75 ml 750 ml Output Urine Total 600 ml Laboratory Tests 07/25/19 17:15: Urine Color Pale yellow, Urine Appearance Cloudy, Urine pH 5, Urine Specific [place] 1.025, Urine Protein 3+H, Urine Glucose (UA) Negative, Urine Ketones Negative, Urine Blood 5+H, Urine Nitrite Negative, Urine Bilirubin Negative, Urine Urobilinogen Normal, Urine Leukocyte Esterase 1+H, Urine RBC TntcH, Urine WBC 2-4, Urine Squamous Epithelial Cells Occasional, Urine Uric Acid Crystals FewH, Urine Bacteria ModerateH, Urine Random Sodium < 20L 07/26/19 05:40: White Blood Count 8.4, Red Blood Count 4.35L, Hemoglobin 12.9L, Hematocrit 37.8L , Mean Corpuscular Volume 87, Mean Corpuscular Hemoglobin 29.7, Mean Corpuscular Hemoglobin Concent 34.2, Red Cell Distribution Width 11.2L, Platelet Count 222, Mean Platelet Volume 7.1, Neutrophils (%) (Auto) 63.5, Lymphocytes (%) (Auto) 25.0, Monocytes (%) (Auto) 7.9, Eosinophils (%) (Auto) 2.9, Basophils (%) (Auto) 0.7, Erythrocyte Sedimentation Rate [Pending], Sodium Level 136, Potassium Level 3.4L, Chloride Level 103, Carbon Dioxide Level 23, Anion Gap 10, Blood Urea Nitrogen 28H, Creatinine 1.4#H, Estimat Glomerular Filtration Rate 52.6, Glucose Level 107H, Uric Acid 5.4, Calcium Level 8.2L, Phosphorus Level 2.1L, Magnesium Level 2.0, Total Bilirubin 1.6H, Direct Bilirubin 0.3, Gamma Glutamyl Transpeptidase 15, Aspartate Amino Transf (AST/ SGOT) 42H, Alanine Aminotransferase (ALT/SGPT) 80H, Alkaline Phosphatase 74, Total Creatine Kinase 321H, C-Reactive Protein, Quantitative < 0.4, Total Protein 7.7, Albumin 3.5, Globulin 4.2, Albumin/Globulin Ratio 0.8L, Triglycerides Level 48, Cholesterol Level 115, LDL Cholesterol 71, HDL Cholesterol 37L, Cholesterol/HDL Ratio 3.1L, Amylase Level 92, Lipase 358, Thyroid Stimulating Hormone (TSH) 0.985 Height (Feet): 5 Height (Inches): 5.00 Weight (Pounds): 140 General Appearance: no apparent distress Cardiovascular: normal rate Respiratory/Chest: lungs clear Abdomen: soft Ketan Orellana MD Jul 26, 2019 08:35
[2019-07-26] MEDS: Docusate 100mg cap ORAL SCH ×3 (09:00→18:00)
[2019-07-26] MEDS ORDERED: Potassium Phosphate 30 MM in NS 275 ML IV ONE (09:00)
[2019-07-26] MEDS: Tamsulosin 0.4mg cap ORAL SCH ×2 (09:37→18:02)
--- NOTE | 2019-07-26 10:44 | General Progress Note ---
Assessment/Plan Problem List: (1) BPH (benign prostatic hyperplasia) ICD Codes: N40.0 - Benign prostatic hyperplasia without lower urinary tract symptoms SNOMED: 459857816 (2) Elevated liver enzymes ICD Codes: R74.8 - Abnormal levels of other serum enzymes SNOMED: 016451228 (3) Dehydration ICD Codes: E86.0 - Dehydration SNOMED: 32151282 Assessment/Plan: fu abd CT fu urine tox hepatitis panel repeat labs will fu Subjective Allergies: Coded Allergies: PENICILLINS (Verified Allergy, Intermediate, 02/17/17) Uncoded Allergies: PENICILLIN (Allergy, Mild, 06/04/18) Objective Last 24 Hour Vital Signs Date Time Temp Pulse Resp B/P (MAP) Pulse Ox O2 Delivery O2 Flow Rate FiO2 07/26/19 04:00 97.9 81 16 111/62 (78) 96 07/26/19 00:00 98.1 71 18 103/61 (75) 97 07/25/19 21:00 Room Air 07/25/19 20:00 98.4 78 18 105/70 (82) 97 07/25/19 16:00 97.6 69 20 127/75 (92) 97 07/25/19 15:55 96.8 07/25/19 14:55 96.8 68 19 119/73 (88) 97 07/25/19 12:00 96.7 81 20 126/83 (97) 98 07/25/19 12:00 69 Intake and Output 07/25/19 07/26/19 19:00 07:00 Intake Total 335 ml 750 ml Output Total 600 ml Balance 335 ml 150 ml Intake Oral 260 ml IV Total 75 ml 750 ml Output Urine Total 600 ml Laboratory Tests 07/25/19 17:15: Urine Color Pale yellow, Urine Appearance Cloudy, Urine pH 5, Urine Specific [place] 1.025, Urine Protein 3+H, Urine Glucose (UA) Negative, Urine Ketones Negative, Urine Blood 5+H, Urine Nitrite Negative, Urine Bilirubin Negative, Urine Urobilinogen Normal, Urine Leukocyte Esterase 1+H, Urine RBC TntcH, Urine WBC 2-4, Urine Squamous Epithelial Cells Occasional, Urine Uric Acid Crystals FewH, Urine Bacteria ModerateH, Urine Random Sodium < 20L 07/26/19 05:40: White Blood Count 8.4, Red Blood Count 4.35L, Hemoglobin 12.9L, Hematocrit 37.8L , Mean Corpuscular Volume 87, Mean Corpuscular Hemoglobin 29.7, Mean Corpuscular Hemoglobin Concent 34.2, Red Cell Distribution Width 11.2L, Platelet Count 222, Mean Platelet Volume 7.1, Neutrophils (%) (Auto) 63.5, Lymphocytes (%) (Auto) 25.0, Monocytes (%) (Auto) 7.9, Eosinophils (%) (Auto) 2.9, Basophils (%) (Auto) 0.7, Erythrocyte Sedimentation Rate 18, Sodium Level 136, Potassium Level 3.4L, Chloride Level 103, Carbon Dioxide Level 23, Anion Gap 10, Blood Urea Nitrogen 28H, Creatinine 1.4#H, Estimat Glomerular Filtration Rate 52.6, Glucose Level 107H, Uric Acid 5.4, Calcium Level 8.2L, Phosphorus Level 2.1L, Magnesium Level 2.0, Total Bilirubin 1.6H, Direct Bilirubin 0.3, Gamma Glutamyl Transpeptidase 15, Aspartate Amino Transf (AST/ SGOT) 42H, Alanine Aminotransferase (ALT/SGPT) 80H, Alkaline Phosphatase 74, Total Creatine Kinase 321H, C-Reactive Protein, Quantitative < 0.4, Total Protein 7.7, Albumin 3.5, Globulin 4.2, Albumin/Globulin Ratio 0.8L, Triglycerides Level 48, Cholesterol Level 115, LDL Cholesterol 71, HDL Cholesterol 37L, Cholesterol/HDL Ratio 3.1L, Amylase Level 92, Lipase 358, Thyroid Stimulating Hormone (TSH) 0.985 Height (Feet): 5 Height (Inches): 5.00 Weight (Pounds): 140 General Appearance: alert EENT: normal ENT inspection Neck: supple Cardiovascular: normal rate Respiratory/Chest: decreased breath sounds Abdomen: normal bowel sounds, non tender, soft Extremities: non-tender Oleg Vergara MD Jul 26, 2019 10:44
[2019-07-26 12:00] VITALS: BP 107/67
--- NOTE | 2019-07-26 12:57 | NUR ---
CASE MANAGEMENT:REVIEW 07/26/19 SI: DEHYDRATION. ELEVATED LIVER ENZYMES 97.9 81 16 111/62 96% ON RA H/H-12.9/37.8 BUN+28 CR+1.4 AST/ALT+42/80 IS: IVF+KCL@50/HR HEPARIN SQ Q8HRS PROTONIX PO Q12 FLOMAX PO BID NORCO PO Q6HRS PRN : MED/SURG STATUS 4 EAST DCP: FROM HOME PLAN: START LIQUID DIET
--- NOTE | 2019-07-26 13:52 | Diagnostic Imaging Report ---
Clinical Indication: Abdominal pain Technique: No oral contrast utilized, per emergency room physician request IV administration nonionic contrast. Venous phase spiral acquisition obtained through the abdomen and pelvis. Multiplanar reconstructions were generated. Total dose length product 1086 mGycm. CTDIvol(s) 19 mGy. Dose reduction achieved using automated exposure control Comparison: 06/04/2018 Findings: The appendix is normal. There is no evidence of colonic diverticulosis or diverticulitis. No small bowel distention. Contrast has traversed the entirety of the small bowel and most of the colon. No free or loculated intraperitoneal gas or fluid is evident. The distal esophagus, stomach, duodenum are unremarkable. The gallbladder has been removed. The extrahepatic bile ducts are slightly ectatic. The liver is unremarkable. The pancreas, spleen, adrenals, kidneys are unremarkable. No retroperitoneal or mesenteric mass or adenopathy. No pelvic mass or adenopathy. The bladder is empty, contains a Clark catheter. The included lung bases demonstrate minimal atelectasis or scarring in the lower lobes. The bones are unremarkable except for minimal proliferative spondylosis. Impression: No acute abnormality Prior cholecystectomy. Mildly ectatic extrahepatic bile ducts, likely related to such Empty bladder with a Clark catheter Minimal basilar lower lobe pulmonary atelectasis or scarring The CT scanner at [facility] is accredited by the [employer] [place] [place] [employer] [employer] and the scans are performed using protocols designed to limit radiation exposure to as low as reasonably achievable to attain images of sufficient resolution adequate for diagnostic evaluation.
[2019-07-26 16:00] VITALS: BP 110/61
[2019-07-26] MEDS ORDERED: NS w/KCl 20mEq 1000ml 1,000 ML IV SCH (17:00)
--- NOTE | 2019-07-26 17:53 | Internal Med Progress Note ---
Subjective Date of Service: Jul 26, 2019 Physician Name Tristin Meyers Attending Physician Joseph Guillen MD Current Medications Medications (Trade) Dose Ordered Sig/Cole Route PRN Reason Start Time Stop Time Status Last Admin Dose Admin Acetaminophen (Tylenol) 650 mg Q6H PRN ORAL Mild Pain/Temp > 100.5 07/25/19 15:07 08/24/19 15:06 Acetaminophen/ Hydrocodone Bitart (Noel 5/325) 1 tab Q6H PRN ORAL Moderate Pain (Pain Scale 4-6) 07/25/19 15:08 08/01/19 15:07 07/26/19 06:12 Acetaminophen/ Hydrocodone Bitart (Noel 5/325) 1 tab Q6H PRN ORAL For Pain 07/25/19 15:08 08/01/19 15:07 Barium Sulfate (Readi-Cat 2) 450 ml NOW PRN ORAL Radiology Procedure 07/25/19 18:45 07/27/19 18:43 07/26/19 08:17 Docusate Sodium (Colace) 100 mg THREE TIMES A DAY ORAL 07/26/19 09:00 08/25/19 08:59 Heparin Sodium (Porcine) (Heparin 5000 units/ml) 5,000 units EVERY 8 HOURS SUBQ 07/25/19 22:00 08/24/19 06:29 07/26/19 14:17 Iohexol (OMNIPAQUE-300 100ml) 100 ml NOW PRN INJ Radiology Procedure 07/25/19 18:45 07/27/19 18:43 Ondansetron HCl (Zofran) 4 mg Q4H PRN IVP Nausea & Vomiting 07/25/19 15:08 08/24/19 15:07 Pantoprazole (Protonix) 40 mg EVERY 12 HOURS ORAL 07/25/19 21:00 08/24/19 20:59 07/26/19 09:37 Potassium Chloride/Sodium Chloride 1,000 ml @ 50 mls/hr Q20H IV 07/26/19 17:00 08/24/19 16:59 Tamsulosin HCl (Flomax) 0.4 mg BID ORAL 07/25/19 18:00 08/24/19 20:59 07/26/19 09:37 Allergies: Coded Allergies: PENICILLINS (Verified Allergy, Intermediate, 02/17/17) Uncoded Allergies: PENICILLIN (Allergy, Mild, 06/04/18) ROS Limited/Unobtainable: No Constitutional: Reports: no symptoms HEENT: Reports: no symptoms Cardiovascular: Reports: no symptoms Respiratory: Reports: no symptoms Gastrointestinal/Abdominal: Reports: no symptoms Genitourinary: Reports: no symptoms Neurologic/Psychiatric: Reports: no symptoms Subjective 53 YO M admitted with generalized pain and muscle cramps. Now renal failure, pancreatitis and elevated liver function tests. Cover for Intt Med-Dr Guillen Objective Last Vital Signs Date Time Temp Pulse Resp B/P (MAP) Pulse Ox O2 Delivery O2 Flow Rate FiO2 07/26/19 16:00 99.1 64 18 110/61 (77) 98 07/26/19 09:00 Room Air Laboratory Tests Test 07/26/19 05:40 07/26/19 16:01 White Blood Count 8.4 K/UL (4.8-10.8) Red Blood Count 4.35 M/UL (4.70-6.10) L Hemoglobin 12.9 G/DL (14.2-18.0) L Hematocrit 37.8 % (42.0-52.0) L Mean Corpuscular Volume 87 FL (80-99) Mean Corpuscular Hemoglobin 29.7 PG (27.0-31.0) Mean Corpuscular Hemoglobin Concent 34.2 G/DL (32.0-36.0) Red Cell Distribution Width 11.2 % (11.6-14.8) L Platelet Count 222 K/UL (150-450) Mean Platelet Volume 7.1 FL (6.5-10.1) Neutrophils (%) (Auto) 63.5 % (45.0-75.0) Lymphocytes (%) (Auto) 25.0 % (20.0-45.0) Monocytes (%) (Auto) 7.9 % (1.0-10.0) Eosinophils (%) (Auto) 2.9 % (0.0-3.0) Basophils (%) (Auto) 0.7 % (0.0-2.0) Erythrocyte Sedimentation Rate 18 MM/HR (0-20) Sodium Level 136 MMOL/L (136-145) Potassium Level 3.4 MMOL/L (3.5-5.1) L Chloride Level 103 MMOL/L (98-107) Carbon Dioxide Level 23 MMOL/L (21-32) Anion Gap 10 mmol/L (5-15) Blood Urea Nitrogen 28 mg/dL (7-18) H Creatinine 1.4 MG/DL (0.55-1.30) #H Estimat Glomerular Filtration Rate 52.6 mL/min (>60) Glucose Level 107 MG/DL (74-106) H Uric Acid 5.4 MG/DL (2.6-7.2) Calcium Level 8.2 MG/DL (8.5-10.1) L Phosphorus Level 2.1 MG/DL (2.5-4.9) L Magnesium Level 2.0 MG/DL (1.8-2.4) Total Bilirubin 1.6 MG/DL (0.2-1.0) H Direct Bilirubin 0.3 MG/DL (0.0-0.3) Gamma Glutamyl Transpeptidase 15 U/L (5-85) Aspartate Amino Transf (AST/SGOT) 42 U/L (15-37) H Alanine Aminotransferase (ALT/SGPT) 80 U/L (12-78) H Alkaline Phosphatase 74 U/L (46-116) Total Creatine Kinase 321 U/L (26-308) H C-Reactive Protein, Quantitative < 0.4 mg/dL (0.00-0.90) Total Protein 7.7 G/DL (6.4-8.2) Albumin 3.5 G/DL (3.4-5.0) Globulin 4.2 g/dL Albumin/Globulin Ratio 0.8 (1.0-2.7) L Triglycerides Level 48 MG/DL (30-150) Cholesterol Level 115 MG/DL (< 200) LDL Cholesterol 71 mg/dL (<100) HDL Cholesterol 37 MG/DL (40-60) L Cholesterol/HDL Ratio 3.1 (3.3-4.4) L Amylase Level 92 U/L (25-115) Lipase 358 U/L (73-393) Thyroid Stimulating Hormone (TSH) 0.985 uiU/mL (0.358-3.740) Urine Eosinophils None seen (NONE SEEN) Urine Opiates Screen Positive (NEGATIVE) H Urine Barbiturates Screen Negative (NEGATIVE) Phencyclidine (PCP) Screen Negative (NEGATIVE) Urine Amphetamines Screen Positive (NEGATIVE) H Urine Benzodiazepines Screen Negative (NEGATIVE) Urine Cocaine Screen Negative (NEGATIVE) Urine Marijuana (THC) Screen Positive (NEGATIVE) H Microbiology Date/Time Source Procedure Growth Status 07/25/19 17:15 Urine,Clean Catch Urine Culture - Preliminary Gram Negative Bacillus 1 Resulted Intake and Output 07/25/19 07/26/19 19:00 07:00 Intake Total 335 ml 750 ml Output Total 600 ml Balance 335 ml 150 ml Intake Oral 260 ml IV Total 75 ml 750 ml Output Urine Total 600 ml Objective PHYSICAL EXAMINATION: GENERAL: The patient is a well-developed and well-nourished male, in no apparent distress. HEENT: Eyes, pupils are equal and responsive to light and accommodation. Extraocular movements are intact. NECK: Supple without lymphadenopathy. CHEST: Lungs are clear to auscultation bilaterally without wheezes or rales. CARDIOVASCULAR: Regular rhythm and rate. S1 and S2 are normal without murmurs, rubs, or gallops. ABDOMEN: Soft, nontender, and nondistended. Positive bowel sounds. No evidence of hepatosplenomegaly. Currently, no rebound or guarding noted. EXTREMITIES: Negative for clubbing, cyanosis, or edema. RECTAL/GENITAL: Not performed. NEUROLOGIC: Cranial nerves II through XII are grossly intact without focal deficits. Motor strength is 5/5 bilaterally. Deep tendon reflexes are 2+ plantar. Assessment/Plan Assessment/Plan ASSESSMENT: This is a 53-year-old male. 1. Generalized pain. 2. Generalized muscle cramps. 3. Acute on chronic renal failure. 4. Elevated liver function tests. 5. Acute pancreatitis. 6. Hypercalcemia. 7. Benign prostatic hypertrophy. 8. Gastroesophageal reflux disease. TREATEMENT: 1. Renal failure. A Nephrology consultation has been obtained with Dr. Orellana. We will follow recommendations of Nephrology. The patient does have a history of renal failure in the past. 2. Hypercalcemia. A repeat calcium level is pending. 3. Pancreatitis/elevated liver function tests. A Gastroenterology consultation has been obtained with Dr. Oleg Vergara. We will follow recommendations of Gastroenterology. CT abdomen/pelvis=normal 4. Benign prostatic hypertrophy. 5. Gastroesophageal reflux disease. Tristin Meyers MD Jul 26, 2019 17:53
--- NOTE | 2019-07-26 19:34 | NUR ---
HAND-OFF: Report given to ROSALIE Pizarro.
--- NOTE | 2019-07-26 19:55 | NUR ---
NURSE NOTES: Received patient awake, alert, verbal, resting in bed comfortably without complaints.
[2019-07-26 20:10] VITALS: BP 110/65
[2019-07-27 00:01] VITALS: BP 115/67
[2019-07-27 04:00] VITALS: BP 101/66
[2019-07-27] MEDS: Heparin 5000 units/ml inj SUBQ SCH (05:14)
--- NOTE | 2019-07-27 07:23 | NUR ---
HAND-OFF: Report given to Lorna Torres RN/ROSALIE Mistry.
--- NOTE | 2019-07-27 07:24 | NUR ---
NURSE NOTES: Received report from Vi WIGGINS. Bedside round done. Patient awake, alert and oriented. Patient appears comfortable and sitting up in bed eating breakfast. Clark draining. IV in place and patent. Bed in lowest position, locked, and alarmed. Call light within reach. Will continue to follow plan of care.
[2019-07-27 07:32] LABS: BASOPHILS % (AUTO) 0.6 % (0.0-2.0); EOSINOPHILS % (AUTO) 0.9 % (0.0-3.0); HEMATOCRIT 35.2 % (42.0-52.0); HEMOGLOBIN 12.2 G/DL (14.2-18.0); LYMPHOCYTES % (AUTO) 18.4 % (20.0-45.0); MEAN CORPUSCULAR VOLUME 87 FL (80-99); MONOCYTES % (AUTO) 8.5 % (1.0-10.0); NEUTROPHILS % (AUTO) 71.6 % (45.0-75.0); PLATELET COUNT 203 K/UL (150-450); RED BLOOD COUNT 4.04 M/UL (4.70-6.10); RED CELL DISTRIBUTION WIDTH 11.2 % (11.6-14.8); WHITE BLOOD COUNT 9.9 K/UL (4.8-10.8)
[2019-07-27 08:00] VITALS: BP 97/58
[2019-07-27 08:01] LABS: ALANINE AMINOTRANSFERASE 60 U/L (12-78); ALBUMIN 3.2 G/DL (3.4-5.0); ALBUMIN/GLOBULIN RATIO 0.8 (1.0-2.7); ALKALINE PHOSPHATASE 76 U/L (46-116); ANION GAP 7 mmol/L (5-15); ASPARTATE AMINO TRANSFERASE 24 U/L (15-37); BILIRUBIN,TOTAL 1.5 MG/DL (0.2-1.0); BLOOD UREA NITROGEN 14 mg/dL (7-18); CALCIUM 8.1 MG/DL (8.5-10.1); CARBON DIOXIDE 25 MMOL/L (21-32); CHLORIDE 104 MMOL/L (98-107); CREATINE KINASE 273 U/L (26-308); CREATININE 1.3 MG/DL (0.55-1.30); POTASSIUM 3.7 MMOL/L (3.5-5.1); SODIUM 136 MMOL/L (136-145)
[2019-07-27 08:07] LABS: BILIRUBIN,DIRECT 0.3 MG/DL (0.0-0.3)
[2019-07-27] MEDS: Tamsulosin 0.4mg cap ORAL SCH ×2 (09:09→17:48)
[2019-07-27] MEDS: Docusate 100mg cap ORAL SCH ×3 (09:09→17:47)
--- NOTE | 2019-07-27 09:29 | Nephrology Progress Note ---
Assessment/Plan Problem List: (1) Dehydration Assessment: resolved (2) Hypercalcemia Assessment: resolved (3) Acute pancreatitis (4) Elevated liver enzymes (5) BPH (benign prostatic hyperplasia) (6) Drug abuse Assessment: opiates amphetamin THC in urine Assessment acute renal failure- resolving ? CKD underlying Hypercalcemia due to dehydration Acute pancreatitis electrolyte imbalance Plan DC Clark ambulate DC Hydrate Monitor lytes and Chems per orders avoid nephrotoxics DC planning Subjective ROS Limited/Unobtainable: No Objective Objective Last 24 Hour Vital Signs Date Time Temp Pulse Resp B/P (MAP) Pulse Ox O2 Delivery O2 Flow Rate FiO2 07/27/19 08:00 99.5 73 20 97/58 (71) 95 07/27/19 04:00 98.6 87 19 101/66 (78) 95 07/27/19 00:01 99.0 60 18 115/67 (83) 96 07/26/19 20:56 Room Air 07/26/19 20:10 99.4 66 18 110/65 (80) 95 07/26/19 16:00 99.1 64 18 110/61 (77) 98 07/26/19 12:00 98.0 56 19 107/67 (80) 98 Intake and Output 07/26/19 07/27/19 19:00 07:00 Intake Total 50 ml 860 ml Output Total 680 ml 200 ml Balance -630 ml 660 ml Intake Oral 260 ml IV Total 50 ml 600 ml Output Urine Total 680 ml 200 ml # Voids 1 # Bowel Movements 1 1 Laboratory Tests 07/26/19 16:01: Urine Eosinophils None seen, Urine Opiates Screen PositiveH, Urine Barbiturates Screen Negative, Phencyclidine (PCP) Screen Negative, Urine Amphetamines Screen PositiveH, Urine Benzodiazepines Screen Negative, Urine Cocaine Screen Negative , Urine Marijuana (THC) Screen PositiveH 07/27/19 06:25: White Blood Count 9.9, Red Blood Count 4.04L, Hemoglobin 12.2L, Hematocrit 35.2L , Mean Corpuscular Volume 87, Mean Corpuscular Hemoglobin 30.2, Mean Corpuscular Hemoglobin Concent 34.7, Red Cell Distribution Width 11.2L, Platelet Count 203, Mean Platelet Volume 8.3, Neutrophils (%) (Auto) 71.6, Lymphocytes (%) (Auto) 18.4L, Monocytes (%) (Auto) 8.5, Eosinophils (%) (Auto) 0.9, Basophils (%) (Auto) 0.6, Sodium Level 136, Potassium Level 3.7, Chloride Level 104, Carbon Dioxide Level 25, Anion Gap 7, Blood Urea Nitrogen 14, Creatinine 1.3, Estimat Glomerular Filtration Rate 57.3, Glucose Level 96, Calcium Level 8.1L, Total Bilirubin 1.5H, Direct Bilirubin 0.3, Aspartate Amino Transf (AST/SGOT) 24, Alanine Aminotransferase (ALT/SGPT) 60, Alkaline Phosphatase 76, Total Creatine Kinase 273, Total Protein 7.2, Albumin 3.2L, Globulin 4.0, Albumin/Globulin Ratio 0.8L, Hepatitis A IgM Antibody [Pending], Hepatitis B Surface Antigen [Pending], Hepatitis B Core IgM Antibody [Pending], Hepatitis C Antibody [Pending] Height (Feet): 5 Height (Inches): 5.00 Weight (Pounds): 140 General Appearance: no apparent distress Objective no change Ketan Orellana MD Jul 27, 2019 09:29
[2019-07-27] MEDS: HYDROcodone/Acetamin 5/325 tab ORAL PRN (11:46)
--- NOTE | 2019-07-27 11:50 | NUR ---
NURSE NOTES: Patient's temp is 101.3 Patient is awake, no changes in LOC. Patient complains of abdominal pain and asks for [place]. Patient wants to take tylenol later. Cooling measures done. Patient states that he has a stuffy nose due to allergy with non-productive cough. No wheezing or congestion. Will continue to monitor.
[2019-07-27 12:00] VITALS: BP 99/64
--- NOTE | 2019-07-27 12:06 | Consultation ---
History of Present Illness General Chief Complaint: Abdominal Pain Present Illness HPI 53 y/o M with of BPH, GERD, CAD/NJ, gastritis presented to ED on 07/24 with few days of increased generalized pain, abdominal pain and cramping in hands and legs. Upon admission found to have pancreatitis Allergies: Coded Allergies: PENICILLINS (Verified Allergy, Intermediate, 02/17/17) Uncoded Allergies: PENICILLIN (Allergy, Mild, 06/04/18) Medication History Scheduled Dicyclomine Hcl* (Dicyclomine Hcl*), 10 MG PO QID Phenazopyridine Hcl* (Pyridium*), 100 MG ORAL THREE TIMES A DAY Ranitidine Hcl* (Zantac*), 150 MG ORAL TWICE A DAY Ranitidine Hcl* (Zantac*), 150 MG ORAL TWICE A DAY Tamsulosin Hcl (Tamsulosin Hcl*), 0.4 MG ORAL BEDTIME, (Reported) Scheduled PRN Acetaminophen With Codeine (T#3) (Tylenol #3 Tab*), 1 TAB ORAL Q8H PRN for For Pain Diphenhydramine Hcl* (Diphenhydramine Hcl*), 50 MG ORAL Q8H PRN for Insomnia, ( Reported) Hydrocodone Bit/Acetaminophen 5-325* ([place] 5-325*), 1 TAB ORAL Q6H PRN for For Pain, (Reported) Ibuprofen* (Motrin*), 600 MG ORAL Q8H PRN for For Pain Ondansetron Odt* (Zofran Odt*), 4 MG ORAL Q6H PRN for Nausea & Vomiting Miscellaneous Medications Acetaminophen (Mapap), 500 MG PO, (Reported) Docusate Sodium (Dok), 100 MG PO, (Reported) Unable to Obtain Medications (Unable To Obtain Meds), (Reported) Patient History Healthcare decision maker Resuscitation status Full Code Advanced Directive on File No Patient History Narrative Pmhx: as above Shx: He denies any drug use. He states that he does not drink alcohol regularly Fhx: non contributory Review of Systems All Other Systems: negative except mentioned in HPI Physical Exam Physical Exam Narrative GENERAL: The patient is a well-developed and well-nourished male, in no apparent distress. HEENT: Eyes, pupils are equal and responsive to light and accommodation. Extraocular movements are intact. NECK: Supple without lymphadenopathy. CHEST: Lungs are clear to auscultation bilaterally without wheezes or rales. CARDIOVASCULAR: Regular rhythm and rate. S1 and S2 are normal without murmurs, rubs, or gallops. ABDOMEN: Soft, nontender, and nondistended. Positive bowel sounds. No evidence of hepatosplenomegaly. Currently, no rebound or guarding noted. EXTREMITIES: Negative for clubbing, cyanosis, or edema. tar. Last 24 Hour Vital Signs Date Time Temp Pulse Resp B/P (MAP) Pulse Ox O2 Delivery O2 Flow Rate FiO2 07/27/19 09:00 Room Air 07/27/19 08:00 99.5 73 20 97/58 (71) 95 07/27/19 04:00 98.6 87 19 101/66 (78) 95 07/27/19 00:01 99.0 60 18 115/67 (83) 96 07/26/19 20:56 Room Air 07/26/19 20:10 99.4 66 18 110/65 (80) 95 07/26/19 16:00 99.1 64 18 110/61 (77) 98 07/26/19 12:00 98.0 56 19 107/67 (80) 98 Intake and Output 07/26/19 07/27/19 19:00 07:00 Intake Total 50 ml 860 ml Output Total 680 ml 200 ml Balance -630 ml 660 ml Intake Oral 260 ml IV Total 50 ml 600 ml Output Urine Total 680 ml 200 ml # Voids 1 # Bowel Movements 1 1 Laboratory Tests Test 07/26/19 16:01 07/27/19 06:25 Urine Eosinophils None seen (NONE SEEN) Urine Opiates Screen Positive (NEGATIVE) H Urine Barbiturates Screen Negative (NEGATIVE) Phencyclidine (PCP) Screen Negative (NEGATIVE) Urine Amphetamines Screen Positive (NEGATIVE) H Urine Benzodiazepines Screen Negative (NEGATIVE) Urine Cocaine Screen Negative (NEGATIVE) Urine Marijuana (THC) Screen Positive (NEGATIVE) H White Blood Count 9.9 K/UL (4.8-10.8) Red Blood Count 4.04 M/UL (4.70-6.10) L Hemoglobin 12.2 G/DL (14.2-18.0) L Hematocrit 35.2 % (42.0-52.0) L Mean Corpuscular Volume 87 FL (80-99) Mean Corpuscular Hemoglobin 30.2 PG (27.0-31.0) Mean Corpuscular Hemoglobin Concent 34.7 G/DL (32.0-36.0) Red Cell Distribution Width 11.2 % (11.6-14.8) L Platelet Count 203 K/UL (150-450) Mean Platelet Volume 8.3 FL (6.5-10.1) Neutrophils (%) (Auto) 71.6 % (45.0-75.0) Lymphocytes (%) (Auto) 18.4 % (20.0-45.0) L Monocytes (%) (Auto) 8.5 % (1.0-10.0) Eosinophils (%) (Auto) 0.9 % (0.0-3.0) Basophils (%) (Auto) 0.6 % (0.0-2.0) Sodium Level 136 MMOL/L (136-145) Potassium Level 3.7 MMOL/L (3.5-5.1) Chloride Level 104 MMOL/L (98-107) Carbon Dioxide Level 25 MMOL/L (21-32) Anion Gap 7 mmol/L (5-15) Blood Urea Nitrogen 14 mg/dL (7-18) Creatinine 1.3 MG/DL (0.55-1.30) Estimat Glomerular Filtration Rate 57.3 mL/min (>60) Glucose Level 96 MG/DL (74-106) Calcium Level 8.1 MG/DL (8.5-10.1) L Total Bilirubin 1.5 MG/DL (0.2-1.0) H Direct Bilirubin 0.3 MG/DL (0.0-0.3) Aspartate Amino Transf (AST/SGOT) 24 U/L (15-37) Alanine Aminotransferase (ALT/SGPT) 60 U/L (12-78) Alkaline Phosphatase 76 U/L (46-116) Total Creatine Kinase 273 U/L (26-308) Total Protein 7.2 G/DL (6.4-8.2) Albumin 3.2 G/DL (3.4-5.0) L Globulin 4.0 g/dL Albumin/Globulin Ratio 0.8 (1.0-2.7) L Hepatitis A IgM Antibody Pending Hepatitis B Surface Antigen Pending Hepatitis B Core IgM Antibody Pending Hepatitis C Antibody Pending Height (Feet): 5 Height (Inches): 5.00 Weight (Pounds): 140 Medications Current Medications Medications (Trade) Dose Ordered Sig/Cole Route PRN Reason Start Time Stop Time Status Last Admin Dose Admin Acetaminophen (Tylenol) 650 mg Q6H PRN ORAL Mild Pain/Temp > 100.5 07/25/19 15:07 08/24/19 15:06 Acetaminophen/ Hydrocodone Bitart ([place] 5/325) 1 tab Q6H PRN ORAL Moderate Pain (Pain Scale 4-6) 07/25/19 15:08 08/01/19 15:07 07/26/19 06:12 Barium Sulfate (Readi-Cat 2) 450 ml NOW PRN ORAL Radiology Procedure 07/25/19 18:45 07/27/19 18:43 07/26/19 08:17 Docusate Sodium (Colace) 100 mg THREE TIMES A DAY ORAL 07/26/19 09:00 08/25/19 08:59 07/27/19 09:09 Famotidine (Pepcid) 20 mg BID ORAL 07/27/19 18:00 08/26/19 17:59 Iohexol (OMNIPAQUE-300 100ml) 100 ml NOW PRN INJ Radiology Procedure 07/25/19 18:45 07/27/19 18:43 Ondansetron HCl (Zofran) 4 mg Q4H PRN IVP Nausea & Vomiting 07/25/19 15:08 08/24/19 15:07 Tamsulosin HCl (Flomax) 0.4 mg BID ORAL 07/25/19 18:00 08/24/19 20:59 07/27/19 09:09 Assessment/Plan Assessment/Plan: Abx: None Assessment: Acute pancreatitis -CT abd/p: No acute abnormality. Prior cholecystectomy. Mildly ectatic extrahepatic bile ducts, likely related to such. Empty bladder with a Clark catheter. Minimal basilar lower lobe pulmonary atelectasis or scarring Afebrile Leukocytosis, SP UTI (u/a neg but patient has dysuria -u/a neg; ucx >100k K.pna (R amp, nitrofurantoin; otherwise S) Elevated LFTs, SP UDS + opiates, THC, amphetamines MISSY, imporving -Renal US: Negative for hydronephrosis. Clark catheter. Incidental finding small right renal cyst BPH GERD CAD/NJ gastritis Plan: -Start Bactrim #1/5 -monitor Cr, K -f/u cx -Monitor CBC/CMP, temperatures Thank you for this consultation. Will continue to follow along with you. Discussed with Patti Alba M.D. Jul 27, 2019 12:06
--- NOTE | 2019-07-27 12:30 | NUR ---
NURSE NOTES: RN collected urine for eosinophil urine and brought it to lab.
--- NOTE | 2019-07-27 14:58 | Internal Med Progress Note ---
Subjective Date of Service: Jul 27, 2019 Physician Name Tristin Meyers Attending Physician Joseph Guillen MD Current Medications Medications (Trade) Dose Ordered Sig/Cole Route PRN Reason Start Time Stop Time Status Last Admin Dose Admin Acetaminophen (Tylenol) 650 mg Q6H PRN ORAL Mild Pain/Temp > 100.5 07/25/19 15:07 08/24/19 15:06 Acetaminophen/ Hydrocodone Bitart ([place] 5/325) 1 tab Q6H PRN ORAL Moderate Pain (Pain Scale 4-6) 07/25/19 15:08 08/01/19 15:07 07/27/19 11:46 Barium Sulfate (Readi-Cat 2) 450 ml NOW PRN ORAL Radiology Procedure 07/25/19 18:45 07/27/19 18:43 07/26/19 08:17 Docusate Sodium (Colace) 100 mg THREE TIMES A DAY ORAL 07/26/19 09:00 08/25/19 08:59 07/27/19 13:29 Famotidine (Pepcid) 20 mg BID ORAL 07/27/19 18:00 08/26/19 17:59 Iohexol (OMNIPAQUE-300 100ml) 100 ml NOW PRN INJ Radiology Procedure 07/25/19 18:45 07/27/19 18:43 Ondansetron HCl (Zofran) 4 mg Q4H PRN IVP Nausea & Vomiting 07/25/19 15:08 08/24/19 15:07 Tamsulosin HCl (Flomax) 0.4 mg BID ORAL 07/25/19 18:00 08/24/19 20:59 07/27/19 09:09 Trimethoprim/ Sulfamethoxazole (Bactrim-DS) 1 tab TWICE A DAY ORAL 07/27/19 18:00 08/03/19 17:59 Allergies: Coded Allergies: PENICILLINS (Verified Allergy, Intermediate, 02/17/17) Uncoded Allergies: PENICILLIN (Allergy, Mild, hives, 07/27/19) ROS Limited/Unobtainable: No Constitutional: Reports: no symptoms HEENT: Reports: no symptoms Cardiovascular: Reports: no symptoms Respiratory: Reports: no symptoms Gastrointestinal/Abdominal: Reports: no symptoms Genitourinary: Reports: no symptoms Neurologic/Psychiatric: Reports: no symptoms Subjective 53 YO M admitted with generalized pain and muscle cramps. Now renal failure, pancreatitis and elevated liver function tests. Cover for Intt [place]-Dr Guillen Objective Last Vital Signs Date Time Temp Pulse Resp B/P (MAP) Pulse Ox O2 Delivery O2 Flow Rate FiO2 07/27/19 12:00 101.3 75 20 99/64 (76) 95 07/27/19 09:00 Room Air Laboratory Tests Test 07/26/19 16:01 07/27/19 06:25 07/27/19 12:25 Urine Eosinophils None seen (NONE SEEN) None seen (NONE SEEN) Urine Opiates Screen Positive (NEGATIVE) H Urine Barbiturates Screen Negative (NEGATIVE) Phencyclidine (PCP) Screen Negative (NEGATIVE) Urine Amphetamines Screen Positive (NEGATIVE) H Urine Benzodiazepines Screen Negative (NEGATIVE) Urine Cocaine Screen Negative (NEGATIVE) Urine Marijuana (THC) Screen Positive (NEGATIVE) H White Blood Count 9.9 K/UL (4.8-10.8) Red Blood Count 4.04 M/UL (4.70-6.10) L Hemoglobin 12.2 G/DL (14.2-18.0) L Hematocrit 35.2 % (42.0-52.0) L Mean Corpuscular Volume 87 FL (80-99) Mean Corpuscular Hemoglobin 30.2 PG (27.0-31.0) Mean Corpuscular Hemoglobin Concent 34.7 G/DL (32.0-36.0) Red Cell Distribution Width 11.2 % (11.6-14.8) L Platelet Count 203 K/UL (150-450) Mean Platelet Volume 8.3 FL (6.5-10.1) Neutrophils (%) (Auto) 71.6 % (45.0-75.0) Lymphocytes (%) (Auto) 18.4 % (20.0-45.0) L Monocytes (%) (Auto) 8.5 % (1.0-10.0) Eosinophils (%) (Auto) 0.9 % (0.0-3.0) Basophils (%) (Auto) 0.6 % (0.0-2.0) Sodium Level 136 MMOL/L (136-145) Potassium Level 3.7 MMOL/L (3.5-5.1) Chloride Level 104 MMOL/L (98-107) Carbon Dioxide Level 25 MMOL/L (21-32) Anion Gap 7 mmol/L (5-15) Blood Urea Nitrogen 14 mg/dL (7-18) Creatinine 1.3 MG/DL (0.55-1.30) Estimat Glomerular Filtration Rate 57.3 mL/min (>60) Glucose Level 96 MG/DL (74-106) Calcium Level 8.1 MG/DL (8.5-10.1) L Total Bilirubin 1.5 MG/DL (0.2-1.0) H Direct Bilirubin 0.3 MG/DL (0.0-0.3) Aspartate Amino Transf (AST/SGOT) 24 U/L (15-37) Alanine Aminotransferase (ALT/SGPT) 60 U/L (12-78) Alkaline Phosphatase 76 U/L (46-116) Total Creatine Kinase 273 U/L (26-308) Total Protein 7.2 G/DL (6.4-8.2) Albumin 3.2 G/DL (3.4-5.0) L Globulin 4.0 g/dL Albumin/Globulin Ratio 0.8 (1.0-2.7) L Hepatitis A IgM Antibody Pending Hepatitis B Surface Antigen Pending Hepatitis B Core IgM Antibody Pending Hepatitis C Antibody Pending Microbiology Date/Time Source Procedure Growth Status 07/25/19 17:15 Urine,Clean Catch Urine Culture - Final Klebsiella Pneumoniae Complete Intake and Output 07/26/19 07/27/19 19:00 07:00 Intake Total 50 ml 860 ml Output Total 680 ml 200 ml Balance -630 ml 660 ml Intake Oral 260 ml IV Total 50 ml 600 ml Output Urine Total 680 ml 200 ml # Voids 1 # Bowel Movements 1 1 Objective PHYSICAL EXAMINATION: GENERAL: The patient is a well-developed and well-nourished male, in no apparent distress. HEENT: Eyes, pupils are equal and responsive to light and accommodation. Extraocular movements are intact. NECK: Supple without lymphadenopathy. CHEST: Lungs are clear to auscultation bilaterally without wheezes or rales. CARDIOVASCULAR: Regular rhythm and rate. S1 and S2 are normal without murmurs, rubs, or gallops. ABDOMEN: Soft, nontender, and nondistended. Positive bowel sounds. No evidence of hepatosplenomegaly. Currently, no rebound or guarding noted. EXTREMITIES: Negative for clubbing, cyanosis, or edema. RECTAL/GENITAL: Not performed. NEUROLOGIC: Cranial nerves II through XII are grossly intact without focal deficits. Motor strength is 5/5 bilaterally. Deep tendon reflexes are 2+ plantar. Assessment/Plan Assessment/Plan ASSESSMENT: This is a 53-year-old male. 1. Generalized pain. 2. Generalized muscle cramps. 3. Acute on chronic renal failure. 4. Elevated liver function tests. 5. Acute pancreatitis. 6. Hypercalcemia. 7. Benign prostatic hypertrophy. 8. Gastroesophageal reflux disease. TREATEMENT: 1. Renal failure. A Nephrology consultation has been obtained with Dr. Orellana. We will follow recommendations of Nephrology. The patient does have a history of renal failure in the past. 2. Hypercalcemia. A repeat calcium level is pending. 3. Pancreatitis/elevated liver function tests. A Gastroenterology consultation has been obtained with Dr. Oleg Vergara. Tolerating low fat diet We will follow recommendations of Gastroenterology. CT abdomen/pelvis=normal 4. Benign prostatic hypertrophy. 5. Gastroesophageal reflux disease. Tristin Meyers MD Jul 27, 2019 14:58
[2019-07-27] MEDS ORDERED: NS 275ml ONE (15:30)
[2019-07-27] MEDS ORDERED: Tubing IV Secondary IV ONE (15:30)
--- NOTE | 2019-07-27 15:38 | NUR ---
CASE MANAGEMENT: REVIEW SI: UTI . ACUTE PANCREATITIS . BPH T 101.3 HR 73 RR 20 BP 97/58 SAT 95% ROOM AIR HEP PANEL PENDING IS: PEPCID PO BID FLOMAX PO BID BACTRIM DS PO BID [place] 5/325 PO Q6HRS PRN PT EVAL MED/SURG STATUS DCP: PATIENT IS FROM HOME
[2019-07-27 16:00] VITALS: BP 92/55
[2019-07-27] MEDS: Bactrim-DS 1 tab ORAL SCH (17:47)
--- NOTE | 2019-07-27 18:35 | General Progress Note ---
Assessment/Plan Assessment/Plan: Assessment/Plan (1) BPH (benign prostatic hyperplasia) ICD Codes: N40.0 - Benign prostatic hyperplasia without lower urinary tract symptoms SNOMED: 265210007 (2) Elevated liver enzymes - normalizing ICD Codes: R74.8 - Abnormal levels of other serum enzymes SNOMED: 571205370 (3) Dehydration ICD Codes: E86.0 - Dehydration Assessment/Plan: fu abd CT ---> s/p luis manuel fu urine tox hepatitis panel repeat labs will fu Subjective Allergies: Coded Allergies: PENICILLINS (Verified Allergy, Intermediate, 02/17/17) Uncoded Allergies: PENICILLIN (Allergy, Mild, hives, 07/27/19) Subjective Feels OK some L sided abd discomfort loose BM last night better today on clears Objective Last 24 Hour Vital Signs Date Time Temp Pulse Resp B/P (MAP) Pulse Ox O2 Delivery O2 Flow Rate FiO2 07/27/19 16:00 99.5 61 20 92/55 (67) 99 07/27/19 12:00 101.3 75 20 99/64 (76) 95 07/27/19 09:00 Room Air 07/27/19 08:00 99.5 73 20 97/58 (71) 95 07/27/19 04:00 98.6 87 19 101/66 (78) 95 07/27/19 00:01 99.0 60 18 115/67 (83) 96 07/26/19 20:56 Room Air 07/26/19 20:10 99.4 66 18 110/65 (80) 95 Intake and Output 07/26/19 07/27/19 19:00 07:00 Intake Total 50 ml 860 ml Output Total 680 ml 200 ml Balance -630 ml 660 ml Intake Oral 260 ml IV Total 50 ml 600 ml Output Urine Total 680 ml 200 ml # Voids 1 # Bowel Movements 1 1 Laboratory Tests 07/27/19 06:25: White Blood Count 9.9, Red Blood Count 4.04L, Hemoglobin 12.2L, Hematocrit 35.2L , Mean Corpuscular Volume 87, Mean Corpuscular Hemoglobin 30.2, Mean Corpuscular Hemoglobin Concent 34.7, Red Cell Distribution Width 11.2L, Platelet Count 203, Mean Platelet Volume 8.3, Neutrophils (%) (Auto) 71.6, Lymphocytes (%) (Auto) 18.4L, Monocytes (%) (Auto) 8.5, Eosinophils (%) (Auto) 0.9, Basophils (%) (Auto) 0.6, Sodium Level 136, Potassium Level 3.7, Chloride Level 104, Carbon Dioxide Level 25, Anion Gap 7, Blood Urea Nitrogen 14, Creatinine 1.3, Estimat Glomerular Filtration Rate 57.3, Glucose Level 96, Calcium Level 8.1L, Total Bilirubin 1.5H, Direct Bilirubin 0.3, Aspartate Amino Transf (AST/SGOT) 24, Alanine Aminotransferase (ALT/SGPT) 60, Alkaline Phosphatase 76, Total Creatine Kinase 273, Total Protein 7.2, Albumin 3.2L, Globulin 4.0, Albumin/Globulin Ratio 0.8L, Hepatitis A IgM Antibody [Pending], Hepatitis B Surface Antigen [Pending], Hepatitis B Core IgM Antibody [Pending], Hepatitis C Antibody [Pending] 07/27/19 12:25: Urine Eosinophils None seen Height (Feet): 5 Height (Inches): 5.00 Weight (Pounds): 140 Objective WDWN man NCAT supple CTA RR abd soft ND no edema Maisha Elizondo MD Jul 27, 2019 18:35
--- NOTE | 2019-07-27 19:33 | NUR ---
HAND-OFF: Report given to Vi, patient is stable in condition.
--- NOTE | 2019-07-27 20:00 | NUR ---
NURSE NOTES: Received patient awake, alert, verbal, resting in bed, comfortable.
[2019-07-27 20:04] VITALS: BP 93/63
[2019-07-28] VITALS: BP 103/61
[2019-07-28 04:00] VITALS: BP 106/67
--- NOTE | 2019-07-28 07:21 | NUR ---
NURSE NOTES: Received report from Vi WIGGINS. Patient awake alert and oriented x 4. Patient sitting in Auguste's position in bed eating breakfast. Patient denies pain at this time. IV in left ac patent, no signs of erythema or edema. Educated patient to call if voids in urinal so that Anil WIGGINS can collect urine sample. Bed in lowest position and locked. Call light, urinal, and beside table within reach. Will continue to follow the plan of care.
--- NOTE | 2019-07-28 07:21 | NUR ---
HAND-OFF: Report given to Lorna Torres RN/ROSALIE Mistry.
[2019-07-28 07:27] LABS: BASOPHILS % (AUTO) 0.6 % (0.0-2.0); EOSINOPHILS % (AUTO) 1.5 % (0.0-3.0); HEMATOCRIT 35.4 % (42.0-52.0); HEMOGLOBIN 12.1 G/DL (14.2-18.0); LYMPHOCYTES % (AUTO) 16.9 % (20.0-45.0); MEAN CORPUSCULAR VOLUME 88 FL (80-99); MONOCYTES % (AUTO) 7.3 % (1.0-10.0); NEUTROPHILS % (AUTO) 73.8 % (45.0-75.0); PLATELET COUNT 175 K/UL (150-450); RED BLOOD COUNT 4.03 M/UL (4.70-6.10); RED CELL DISTRIBUTION WIDTH 11.2 % (11.6-14.8)
[2019-07-28 07:46] LABS: ANION GAP 7 mmol/L (5-15); BLOOD UREA NITROGEN 12 mg/dL (7-18); CALCIUM 8.6 MG/DL (8.5-10.1); CARBON DIOXIDE 23 MMOL/L (21-32); CHLORIDE 106 MMOL/L (98-107); CREATININE 1.1 MG/DL (0.55-1.30); POTASSIUM 3.7 MMOL/L (3.5-5.1); SODIUM 136 MMOL/L (136-145)
[2019-07-28 08:00] VITALS: BP 114/71
[2019-07-28] MEDS: Bactrim-DS 1 tab ORAL SCH (08:36)
[2019-07-28] MEDS: Docusate 100mg cap ORAL SCH ×3 (08:36→17:49)
[2019-07-28] MEDS: Tamsulosin 0.4mg cap ORAL SCH ×2 (08:37→17:49)
--- NOTE | 2019-07-28 10:33 | NUR ---
PT Note PT eval completed. Patient is independent in all mobility and gait. Patient does not need PT. No f/u PT treatments recommended at this time. Addendum: 07/28/19 at 1033 by MARY ANN BURNHAM PT Amended: Links added.
--- NOTE | 2019-07-28 11:23 | Nephrology Progress Note ---
Assessment/Plan Problem List: (1) Dehydration Assessment: resolved (2) Hypercalcemia Assessment: resolved (3) Acute pancreatitis (4) Elevated liver enzymes (5) BPH (benign prostatic hyperplasia) (6) Drug abuse Assessment: opiates amphetamin THC in urine Assessment acute renal failure- resolving ? CKD underlying Hypercalcemia due to dehydration Acute pancreatitis electrolyte imbalance Plan DC Clark ambulate DC Hydrate Monitor lytes and Chems per orders avoid nephrotoxics DC planning Subjective ROS Limited/Unobtainable: No Objective Objective Last 24 Hour Vital Signs Date Time Temp Pulse Resp B/P (MAP) Pulse Ox O2 Delivery O2 Flow Rate FiO2 07/28/19 09:00 Room Air 07/28/19 08:00 96.8 65 20 114/71 (85) 100 07/28/19 04:00 98.6 61 19 106/67 (80) 97 07/28/19 00:00 100.0 74 20 103/61 (75) 98 07/27/19 20:07 Room Air 07/27/19 20:04 101.2 79 20 93/63 (73) 98 07/27/19 16:00 99.5 61 20 92/55 (67) 99 07/27/19 12:00 101.3 75 20 99/64 (76) 95 Intake and Output 07/27/19 07/28/19 19:00 07:00 Intake Total 2210 ml Output Total 800 ml 400 ml Balance 1410 ml -400 ml Intake Oral 1860 ml IV Total 350 ml Output Urine Total 800 ml 400 ml # Voids 3 Laboratory Tests 07/27/19 12:25: Urine Eosinophils None seen 07/28/19 06:41: White Blood Count 11.0H, Red Blood Count 4.03L, Hemoglobin 12.1L, Hematocrit 35.4L, Mean Corpuscular Volume 88, Mean Corpuscular Hemoglobin 30.1, Mean Corpuscular Hemoglobin Concent 34.3, Red Cell Distribution Width 11.2L, Platelet Count 175, Mean Platelet Volume 8.8, Neutrophils (%) (Auto) 73.8, Lymphocytes (%) (Auto) 16.9L, Monocytes (%) (Auto) 7.3, Eosinophils (%) (Auto) 1.5, Basophils (%) (Auto) 0.6, Sodium Level 136, Potassium Level 3.7, Chloride Level 106, Carbon Dioxide Level 23, Anion Gap 7, Blood Urea Nitrogen 12, Creatinine 1.1, Estimat Glomerular Filtration Rate > 60, Glucose Level 94, Calcium Level 8.6 07/28/19 09:20: Urine Eosinophils None seen Height (Feet): 5 Height (Inches): 5.00 Weight (Pounds): 140 General Appearance: no apparent distress Objective no change Ketan Orellana MD Jul 28, 2019 11:23
[2019-07-28 12:00] VITALS: BP 134/87
--- NOTE | 2019-07-28 12:00 | NUR ---
NURSE NOTES: At 1340 patient still had a temperature of 100.0. Patient also complaining of abdominal pain 03/30. Gave patient norco 325 mg[address] in right forearm. IV flushes, has blood return, and no signs of infiltration. Will continue to monitor patient and follow plan of care. Addendum: 07/28/19 at 1405 by Anil Valdez RN 1200 is wrong time[address] Note took place at 1340.
[2019-07-28] MEDS: HYDROcodone/Acetamin 5/325 tab ORAL PRN (13:26)
--- NOTE | 2019-07-28 14:30 | NUR ---
Spoke with doctor Mira about patients elevated WBC of 11.0 and fever. Ordered UA and Levofloxin 500 mg / 100 mL. Patient updated, and communicated the need for another urine sample. Gave patient a clean urinal. Will continue to monitor and follow care plan.
--- NOTE | 2019-07-28 14:37 | Internal Med Progress Note ---
Subjective Date of Service: Jul 28, 2019 Physician Name Tristin Meyers Attending Physician Joseph Guillen MD Current Medications Medications (Trade) Dose Ordered Sig/Cole Route PRN Reason Start Time Stop Time Status Last Admin Dose Admin Acetaminophen (Tylenol) 650 mg Q6H PRN ORAL Mild Pain/Temp > 100.5 07/25/19 15:07 08/24/19 15:06 07/27/19 17:48 Acetaminophen/ Hydrocodone Bitart ([place] 5/325) 1 tab Q6H PRN ORAL Moderate Pain (Pain Scale 4-6) 07/25/19 15:08 08/01/19 15:07 07/28/19 13:26 Docusate Sodium (Colace) 100 mg THREE TIMES A DAY ORAL 07/26/19 09:00 08/25/19 08:59 07/28/19 13:26 Famotidine (Pepcid) 20 mg BID ORAL 07/27/19 18:00 08/26/19 17:59 07/28/19 08:37 Ondansetron HCl (Zofran) 4 mg Q4H PRN IVP Nausea & Vomiting 07/25/19 15:08 08/24/19 15:07 Tamsulosin HCl (Flomax) 0.4 mg BID ORAL 07/25/19 18:00 08/24/19 20:59 07/28/19 08:37 Trimethoprim/ Sulfamethoxazole (Bactrim-DS) 1 tab TWICE A DAY ORAL 07/27/19 18:00 08/03/19 17:59 07/28/19 08:36 Allergies: Coded Allergies: PENICILLINS (Verified Allergy, Intermediate, 02/17/17) Uncoded Allergies: PENICILLIN (Allergy, Mild, hives, 07/27/19) ROS Limited/Unobtainable: No Constitutional: Reports: fever HEENT: Reports: no symptoms Cardiovascular: Reports: no symptoms Respiratory: Reports: no symptoms Gastrointestinal/Abdominal: Reports: no symptoms Genitourinary: Reports: no symptoms Neurologic/Psychiatric: Reports: no symptoms Subjective 53 YO M admitted with generalized pain and muscle cramps. Now renal failure, pancreatitis and elevated liver function tests. Cover for Intt Milton-Dr Guillen. Low grade fever overnight Objective Last Vital Signs Date Time Temp Pulse Resp B/P (MAP) Pulse Ox O2 Delivery O2 Flow Rate FiO2 07/28/19 13:56 100.3 07/28/19 12:00 63 12 134/87 (103) 100 07/28/19 09:00 Room Air Laboratory Tests Test 07/28/19 06:41 07/28/19 09:20 White Blood Count 11.0 K/UL (4.8-10.8) H Red Blood Count 4.03 M/UL (4.70-6.10) L Hemoglobin 12.1 G/DL (14.2-18.0) L Hematocrit 35.4 % (42.0-52.0) L Mean Corpuscular Volume 88 FL (80-99) Mean Corpuscular Hemoglobin 30.1 PG (27.0-31.0) Mean Corpuscular Hemoglobin Concent 34.3 G/DL (32.0-36.0) Red Cell Distribution Width 11.2 % (11.6-14.8) L Platelet Count 175 K/UL (150-450) Mean Platelet Volume 8.8 FL (6.5-10.1) Neutrophils (%) (Auto) 73.8 % (45.0-75.0) Lymphocytes (%) (Auto) 16.9 % (20.0-45.0) L Monocytes (%) (Auto) 7.3 % (1.0-10.0) Eosinophils (%) (Auto) 1.5 % (0.0-3.0) Basophils (%) (Auto) 0.6 % (0.0-2.0) Sodium Level 136 MMOL/L (136-145) Potassium Level 3.7 MMOL/L (3.5-5.1) Chloride Level 106 MMOL/L (98-107) Carbon Dioxide Level 23 MMOL/L (21-32) Anion Gap 7 mmol/L (5-15) Blood Urea Nitrogen 12 mg/dL (7-18) Creatinine 1.1 MG/DL (0.55-1.30) Estimat Glomerular Filtration Rate > 60 mL/min (>60) Glucose Level 94 MG/DL (74-106) Calcium Level 8.6 MG/DL (8.5-10.1) Urine Eosinophils None seen (NONE SEEN) Microbiology Date/Time Source Procedure Growth Status 07/25/19 17:15 Urine,Clean Catch Urine Culture - Final Klebsiella Pneumoniae Complete Intake and Output 07/27/19 07/28/19 19:00 07:00 Intake Total 2210 ml Output Total 800 ml 400 ml Balance 1410 ml -400 ml Intake Oral 1860 ml IV Total 350 ml Output Urine Total 800 ml 400 ml # Voids 3 Objective PHYSICAL EXAMINATION: GENERAL: The patient is a well-developed and well-nourished male, in no apparent distress. HEENT: Eyes, pupils are equal and responsive to light and accommodation. Extraocular movements are intact. NECK: Supple without lymphadenopathy. CHEST: Lungs are clear to auscultation bilaterally without wheezes or rales. CARDIOVASCULAR: Regular rhythm and rate. S1 and S2 are normal without murmurs, rubs, or gallops. ABDOMEN: Soft, nontender, and nondistended. Positive bowel sounds. No evidence of hepatosplenomegaly. Currently, no rebound or guarding noted. EXTREMITIES: Negative for clubbing, cyanosis, or edema. RECTAL/GENITAL: Not performed. NEUROLOGIC: Cranial nerves II through XII are grossly intact without focal deficits. Motor strength is 5/5 bilaterally. Deep tendon reflexes are 2+ plantar. Assessment/Plan Assessment/Plan ASSESSMENT: This is a 53-year-old male. 1. Generalized pain. 2. Generalized muscle cramps. 3. Acute on chronic renal failure. 4. Elevated liver function tests. 5. Acute pancreatitis. 6. Hypercalcemia. 7. Benign prostatic hypertrophy. 8. Gastroesophageal reflux disease. 9. low grade fever 10. UTI=Kleb. Pneumo TREATEMENT: 1. Renal failure. A Nephrology consultation has been obtained with Dr. Orellana. We will follow recommendations of Nephrology. The patient does have a history of renal failure in the past. 2. Hypercalcemia. A repeat calcium level is pending. 3. Pancreatitis/elevated liver function tests. A Gastroenterology consultation has been obtained with Dr. Oleg Vergara. Tolerating low fat diet We will follow recommendations of Gastroenterology. CT abdomen/pelvis=normal 4. Benign prostatic hypertrophy. 5. Gastroesophageal reflux disease. 6. Repeat urine cult; start IV Tristin Coy MD Jul 28, 2019 14:37
[2019-07-28 16:00] VITALS: BP 105/62
--- NOTE | 2019-07-28 17:50 | NUR ---
NURSE NOTES: RN sent Urine specimen to lab.
--- NOTE | 2019-07-28 19:06 | NUR ---
HAND-OFF: Report given to Vi WIGGINS.
--- NOTE | 2019-07-28 19:31 | NUR ---
NURSE NOTES: Received patient comfortably resting in bed without complaints.
[2019-07-28 20:04] VITALS: BP 108/61
--- NOTE | 2019-07-28 21:23 | General Progress Note ---
Assessment/Plan Assessment/Plan: Assessment/Plan (1) BPH (benign prostatic hyperplasia) ICD Codes: N40.0 - Benign prostatic hyperplasia without lower urinary tract symptoms SNOMED: 908588152 (2) Elevated liver enzymes - normalizing ICD Codes: R74.8 - Abnormal levels of other serum enzymes SNOMED: 695559086 (3) Dehydration ICD Codes: E86.0 - Dehydration Assessment/Plan: fu abd CT ---> s/p luis manuel fu urine tox hepatitis panel repeat labs will fu Subjective Allergies: Coded Allergies: PENICILLINS (Verified Allergy, Intermediate, 02/17/17) Uncoded Allergies: PENICILLIN (Allergy, Mild, hives, 07/27/19) Subjective Feels OK better today tolerating PO Objective Last 24 Hour Vital Signs Date Time Temp Pulse Resp B/P (MAP) Pulse Ox O2 Delivery O2 Flow Rate FiO2 07/28/19 20:09 Room Air 07/28/19 20:04 99.3 68 19 108/61 (77) 98 07/28/19 16:00 99.2 71 12 105/62 (76) 96 07/28/19 13:56 100.3 07/28/19 12:00 100.3 63 12 134/87 (103) 100 07/28/19 09:00 Room Air 07/28/19 08:00 96.8 65 20 114/71 (85) 100 07/28/19 04:00 98.6 61 19 106/67 (80) 97 07/28/19 00:00 100.0 74 20 103/61 (75) 98 Intake and Output 07/27/19 07/28/19 19:00 07:00 Intake Total 2210 ml Output Total 800 ml 400 ml Balance 1410 ml -400 ml Intake Oral 1860 ml IV Total 350 ml Output Urine Total 800 ml 400 ml # Voids 3 Laboratory Tests 07/28/19 06:41: White Blood Count 11.0H, Red Blood Count 4.03L, Hemoglobin 12.1L, Hematocrit 35.4L, Mean Corpuscular Volume 88, Mean Corpuscular Hemoglobin 30.1, Mean Corpuscular Hemoglobin Concent 34.3, Red Cell Distribution Width 11.2L, Platelet Count 175, Mean Platelet Volume 8.8, Neutrophils (%) (Auto) 73.8, Lymphocytes (%) (Auto) 16.9L, Monocytes (%) (Auto) 7.3, Eosinophils (%) (Auto) 1.5, Basophils (%) (Auto) 0.6, Sodium Level 136, Potassium Level 3.7, Chloride Level 106, Carbon Dioxide Level 23, Anion Gap 7, Blood Urea Nitrogen 12, Creatinine 1.1, Estimat Glomerular Filtration Rate > 60, Glucose Level 94, Calcium Level 8.6 07/28/19 09:20: Urine Eosinophils None seen Height (Feet): 5 Height (Inches): 5.00 Weight (Pounds): 140 Objective WDWN man NCAT supple CTA RR abd soft ND no edema Maisha Elizondo MD Jul 28, 2019 21:23
[2019-07-29 00:16] VITALS: BP 110/65
[2019-07-29 04:00] VITALS: BP 101/59
[2019-07-29 06:18] LABS: BASOPHILS % (AUTO) 0.6 % (0.0-2.0); EOSINOPHILS % (AUTO) 3.9 % (0.0-3.0); HEMATOCRIT 35.4 % (42.0-52.0); HEMOGLOBIN 11.9 G/DL (14.2-18.0); LYMPHOCYTES % (AUTO) 26.8 % (20.0-45.0); MEAN CORPUSCULAR VOLUME 88 FL (80-99); MONOCYTES % (AUTO) 8.7 % (1.0-10.0); PLATELET COUNT 189 K/UL (150-450); RED BLOOD COUNT 4.04 M/UL (4.70-6.10); RED CELL DISTRIBUTION WIDTH 11.2 % (11.6-14.8); WHITE BLOOD COUNT 7.4 K/UL (4.8-10.8)
[2019-07-29 06:30] LABS: ANION GAP 4 mmol/L (5-15); BLOOD UREA NITROGEN 12 mg/dL (7-18); CALCIUM 8.7 MG/DL (8.5-10.1); CARBON DIOXIDE 29 MMOL/L (21-32); CHLORIDE 106 MMOL/L (98-107); CREATININE 1.2 MG/DL (0.55-1.30); POTASSIUM 4.6 MMOL/L (3.5-5.1); SODIUM 139 MMOL/L (136-145)
--- NOTE | 2019-07-29 07:17 | NUR ---
HAND-OFF: Report given to Shantelle Curiel RN.
[2019-07-29 08:00] VITALS: BP 95/57
--- NOTE | 2019-07-29 08:15 | NUR ---
NURSE NOTES: received patient asleep in bed, no sign of respiratory distress or discomfort. Patient has RFA IV access, saline locked. Bed locked at the lowest position possible, call light within easy reach, siderails up x2. Urinal by the bedside. Will continue to monitor patient and follow up with the plan of care.
[2019-07-29] MEDS: Docusate 100mg cap ORAL SCH ×3 (09:45→17:01)
[2019-07-29] MEDS: Tamsulosin 0.4mg cap ORAL SCH ×2 (09:46→17:01)
--- NOTE | 2019-07-29 10:02 | General Progress Note ---
Assessment/Plan Problem List: (1) BPH (benign prostatic hyperplasia) ICD Codes: N40.0 - Benign prostatic hyperplasia without lower urinary tract symptoms SNOMED: 873518685 (2) Elevated liver enzymes ICD Codes: R74.8 - Abnormal levels of other serum enzymes SNOMED: 998516951 (3) Dehydration ICD Codes: E86.0 - Dehydration SNOMED: 69073367 Assessment/Plan: fu abd CT>>> reviewed fu urine tox>>> positive amphetamine hepatitis panel>>> positive for hep C repeat labs will fu needs out patient fu for hep C evaluation and treatment Subjective Allergies: Coded Allergies: PENICILLINS (Verified Allergy, Intermediate, 02/17/17) Uncoded Allergies: PENICILLIN (Allergy, Mild, hives, 07/27/19) Objective Last 24 Hour Vital Signs Date Time Temp Pulse Resp B/P (MAP) Pulse Ox O2 Delivery O2 Flow Rate FiO2 07/29/19 04:00 98.6 58 18 101/59 (73) 98 07/29/19 00:16 99.0 62 19 110/65 (80) 97 07/28/19 20:09 Room Air 07/28/19 20:04 99.3 68 19 108/61 (77) 98 07/28/19 16:00 99.2 71 12 105/62 (76) 96 07/28/19 13:56 100.3 07/28/19 12:00 100.3 63 12 134/87 (103) 100 Intake and Output 07/28/19 07/29/19 19:00 07:00 Intake Total 1000 ml 1500 ml Output Total 400 ml Balance 1000 ml 1100 ml Intake Oral 600 ml IV Total 100 ml Other 900 ml 900 ml Output Urine Total 400 ml # Voids 2 # Bowel Movements 1 1 Laboratory Tests 07/29/19 05:25: White Blood Count 7.4, Red Blood Count 4.04L, Hemoglobin 11.9L, Hematocrit 35.4L , Mean Corpuscular Volume 88, Mean Corpuscular Hemoglobin 29.6, Mean Corpuscular Hemoglobin Concent 33.7, Red Cell Distribution Width 11.2L, Platelet Count 189, Mean Platelet Volume 8.3, Neutrophils (%) (Auto) 60.0, Lymphocytes (%) (Auto) 26.8, Monocytes (%) (Auto) 8.7, Eosinophils (%) (Auto) 3.9H, Basophils (%) (Auto) 0.6, Sodium Level 139, Potassium Level 4.6, Chloride Level 106, Carbon Dioxide Level 29, Anion Gap 4L, Blood Urea Nitrogen 12, Creatinine 1.2, Estimat Glomerular Filtration Rate > 60, Glucose Level 93, Calcium Level 8.7 Height (Feet): 5 Height (Inches): 5.00 Weight (Pounds): 140 General Appearance: alert EENT: normal ENT inspection Neck: supple Cardiovascular: normal rate Respiratory/Chest: decreased breath sounds Abdomen: normal bowel sounds, non tender, soft Extremities: non-tender Oleg Vergara MD Jul 29, 2019 10:02
--- NOTE | 2019-07-29 10:22 | Nephrology Progress Note ---
Assessment/Plan Problem List: (1) Dehydration Assessment: resolved (2) Hypercalcemia Assessment: resolved (3) Acute pancreatitis (4) Elevated liver enzymes (5) BPH (benign prostatic hyperplasia) (6) Drug abuse Assessment: opiates amphetamin THC in urine Assessment acute renal failure- resolving ? CKD underlying Hypercalcemia due to dehydration Acute pancreatitis electrolyte imbalance Plan DC Clark ambulate DC Hydrate Monitor lytes and Chems per orders avoid nephrotoxics DC planning Subjective ROS Limited/Unobtainable: No Objective Objective Last 24 Hour Vital Signs Date Time Temp Pulse Resp B/P (MAP) Pulse Ox O2 Delivery O2 Flow Rate FiO2 07/29/19 04:00 98.6 58 18 101/59 (73) 98 07/29/19 00:16 99.0 62 19 110/65 (80) 97 07/28/19 20:09 Room Air 07/28/19 20:04 99.3 68 19 108/61 (77) 98 07/28/19 16:00 99.2 71 12 105/62 (76) 96 07/28/19 13:56 100.3 07/28/19 12:00 100.3 63 12 134/87 (103) 100 Intake and Output 07/28/19 07/29/19 19:00 07:00 Intake Total 1000 ml 1500 ml Output Total 400 ml Balance 1000 ml 1100 ml Intake Oral 600 ml IV Total 100 ml Other 900 ml 900 ml Output Urine Total 400 ml # Voids 2 # Bowel Movements 1 1 Laboratory Tests 07/29/19 05:25: White Blood Count 7.4, Red Blood Count 4.04L, Hemoglobin 11.9L, Hematocrit 35.4L , Mean Corpuscular Volume 88, Mean Corpuscular Hemoglobin 29.6, Mean Corpuscular Hemoglobin Concent 33.7, Red Cell Distribution Width 11.2L, Platelet Count 189, Mean Platelet Volume 8.3, Neutrophils (%) (Auto) 60.0, Lymphocytes (%) (Auto) 26.8, Monocytes (%) (Auto) 8.7, Eosinophils (%) (Auto) 3.9H, Basophils (%) (Auto) 0.6, Sodium Level 139, Potassium Level 4.6, Chloride Level 106, Carbon Dioxide Level 29, Anion Gap 4L, Blood Urea Nitrogen 12, Creatinine 1.2, Estimat Glomerular Filtration Rate > 60, Glucose Level 93, Calcium Level 8.7 Height (Feet): 5 Height (Inches): 5.00 Weight (Pounds): 140 General Appearance: no apparent distress Objective no change Ketan Orellana MD Jul 29, 2019 10:22
--- NOTE | 2019-07-29 11:34 | NUR ---
RD ASSESSMENT & RECOMMENDATIONS SEE CARE ACTIVITY FOR COMPLETE ASSESSMENT DAILY ESTIMATED NEEDS: Needs based on pancreatitis, Cirrhosis/ 65kg abw 25-30 kcals/kg [id number] total kcals 1-1.5 g protein/kg 65-97 g total protein 25-30 mL/kg 6139-5952 total fluid mLs NUTRITION DIAGNOSIS: Altered nutrition related lab values R/T pancreatitis, ARF, h/o cirrhosis, substance abuse as evidenced by elev lipase (521 -> now wnl), elev creat (4.5 -> now wnl), elev T bili (1.5), + tox screen for THC, amphetamines, and opiates. CURRENT DIET:LOW FAT PO DIET RECOMMENDATIONS: LOW FAT, LOW NA ADDITIONAL RECOMMENDATIONS: * Monitor for continued good PO tolerance and acceptance (lipase now wnl) * Standing wt for accurate CBW * Monitor lytes, replete as needed (phos 2.1 on 07/26, check updated phos)
[2019-07-29 12:00] VITALS: BP 138/81
--- NOTE | 2019-07-29 13:07 | Infectious Diseases Prog Note ---
Assessment/Plan Assessment/Plan Abx: None Assessment: Acute pancreatitis -CT abd/p: No acute abnormality. Prior cholecystectomy. Mildly ectatic extrahepatic bile ducts, likely related to such. Empty bladder with a Clark catheter. Minimal basilar lower lobe pulmonary atelectasis or scarring Fever; improving Leukocytosis, SP UTI (u/a neg but patient has dysuria -u/a neg; ucx >100k K.pna (R amp, nitrofurantoin; otherwise S); repeat ucx NTD Elevated LFTs, SP Hep C ab + UDS + opiates, THC, amphetamines MISSY, imporving -Renal US: Negative for hydronephrosis. Clark catheter. Incidental finding small right renal cyst BPH GERD CAD/PA gastritis Plan: -Cont Levaquin #2 (abx d #3/) for UTI -07/28 SP Bactrim #2 -f/u cx -Monitor CBC/CMP, temperatures -HCV VL Thank you for this consultation. Will continue to follow along with you. Discussed with RN Subjective Allergies: Coded Allergies: PENICILLINS (Verified Allergy, Intermediate, 02/17/17) Uncoded Allergies: PENICILLIN (Allergy, Mild, hives, 07/27/19) Subjective afebrile in 24hrs leukocytosis resolved Objective Vital Signs Last 24 Hour Vital Signs Date Time Temp Pulse Resp B/P (MAP) Pulse Ox O2 Delivery O2 Flow Rate FiO2 07/29/19 09:00 Room Air 07/29/19 08:00 98.6 78 17 95/57 (70) 98 07/29/19 04:00 98.6 58 18 101/59 (73) 98 07/29/19 00:16 99.0 62 19 110/65 (80) 97 07/28/19 20:09 Room Air 07/28/19 20:04 99.3 68 19 108/61 (77) 98 07/28/19 16:00 99.2 71 12 105/62 (76) 96 07/28/19 13:56 100.3 Height (Feet): 5 Height (Inches): 5.00 Weight (Pounds): 140 Objective ENERAL: The patient is a well-developed and well-nourished male, in no apparent distress. HEENT: Eyes, pupils are equal and responsive to light and accommodation. Extraocular movements are intact. NECK: Supple without lymphadenopathy. CHEST: Lungs are clear to auscultation bilaterally without wheezes or rales. CARDIOVASCULAR: Regular rhythm and rate. S1 and S2 are normal without murmurs, rubs, or gallops. ABDOMEN: Soft, nontender, and nondistended. Positive bowel sounds. No evidence of hepatosplenomegaly. Currently, no rebound or guarding noted. EXTREMITIES: Negative for clubbing, cyanosis, or edema. tar. Microbiology Date/Time Source Procedure Growth Status 07/28/19 17:30 Urine,Clean Catch Urine Culture - Preliminary NO GROWTH Resulted Laboratory Tests Test 07/29/19 05:25 White Blood Count 7.4 K/UL (4.8-10.8) Red Blood Count 4.04 M/UL (4.70-6.10) L Hemoglobin 11.9 G/DL (14.2-18.0) L Hematocrit 35.4 % (42.0-52.0) L Mean Corpuscular Volume 88 FL (80-99) Mean Corpuscular Hemoglobin 29.6 PG (27.0-31.0) Mean Corpuscular Hemoglobin Concent 33.7 G/DL (32.0-36.0) Red Cell Distribution Width 11.2 % (11.6-14.8) L Platelet Count 189 K/UL (150-450) Mean Platelet Volume 8.3 FL (6.5-10.1) Neutrophils (%) (Auto) 60.0 % (45.0-75.0) Lymphocytes (%) (Auto) 26.8 % (20.0-45.0) Monocytes (%) (Auto) 8.7 % (1.0-10.0) Eosinophils (%) (Auto) 3.9 % (0.0-3.0) H Basophils (%) (Auto) 0.6 % (0.0-2.0) Sodium Level 139 MMOL/L (136-145) Potassium Level 4.6 MMOL/L (3.5-5.1) Chloride Level 106 MMOL/L (98-107) Carbon Dioxide Level 29 MMOL/L (21-32) Anion Gap 4 mmol/L (5-15) L Blood Urea Nitrogen 12 mg/dL (7-18) Creatinine 1.2 MG/DL (0.55-1.30) Estimat Glomerular Filtration Rate > 60 mL/min (>60) Glucose Level 93 MG/DL (74-106) Calcium Level 8.7 MG/DL (8.5-10.1) Current Medications Medications (Trade) Dose Ordered Sig/Cole Route PRN Reason Start Time Stop Time Status Last Admin Dose Admin Acetaminophen (Tylenol) 650 mg Q6H PRN ORAL Mild Pain/Temp > 100.5 07/25/19 15:07 08/24/19 15:06 07/27/19 17:48 Acetaminophen/ Hydrocodone Bitart ([place] 5/325) 1 tab Q6H PRN ORAL Moderate Pain (Pain Scale 4-6) 07/25/19 15:08 08/01/19 15:07 07/28/19 13:26 Docusate Sodium (Colace) 100 mg THREE TIMES A DAY ORAL 07/26/19 09:00 08/25/19 08:59 07/29/19 12:36 Famotidine (Pepcid) 20 mg BID ORAL 07/27/19 18:00 08/26/19 17:59 07/29/19 09:45 Levofloxacin 100 ml @ 100 mls/hr Q24H IVPB 07/28/19 16:00 08/04/19 15:59 07/28/19 16:52 Ondansetron HCl (Zofran) 4 mg Q4H PRN IVP Nausea & Vomiting 07/25/19 15:08 08/24/19 15:07 Tamsulosin HCl (Flomax) 0.4 mg BID ORAL 07/25/19 18:00 08/24/19 20:59 07/29/19 09:46 Patti Ernst M.D. Jul 29, 2019 13:07
[2019-07-29 16:00] VITALS: BP 130/76
--- NOTE | 2019-07-29 18:56 | Internal Med Progress Note ---
Subjective Date of Service: Jul 29, 2019 Physician Name Tristin Meyers Attending Physician Joseph Guillen MD Current Medications Medications (Trade) Dose Ordered Sig/Cole Route PRN Reason Start Time Stop Time Status Last Admin Dose Admin Acetaminophen (Tylenol) 650 mg Q6H PRN ORAL Mild Pain/Temp > 100.5 07/25/19 15:07 08/24/19 15:06 07/27/19 17:48 Acetaminophen/ Hydrocodone Bitart ([place] 5/325) 1 tab Q6H PRN ORAL Moderate Pain (Pain Scale 4-6) 07/25/19 15:08 08/01/19 15:07 07/28/19 13:26 Docusate Sodium (Colace) 100 mg THREE TIMES A DAY ORAL 07/26/19 09:00 08/25/19 08:59 07/29/19 17:01 Famotidine (Pepcid) 20 mg BID ORAL 07/27/19 18:00 08/26/19 17:59 07/29/19 17:01 Levofloxacin 100 ml @ 100 mls/hr Q24H IVPB 07/28/19 16:00 08/04/19 15:59 07/29/19 17:01 Ondansetron HCl (Zofran) 4 mg Q4H PRN IVP Nausea & Vomiting 07/25/19 15:08 08/24/19 15:07 Tamsulosin HCl (Flomax) 0.4 mg BID ORAL 07/25/19 18:00 08/24/19 20:59 07/29/19 17:01 Allergies: Coded Allergies: PENICILLINS (Verified Allergy, Intermediate, 02/17/17) Uncoded Allergies: PENICILLIN (Allergy, Mild, hives, 07/27/19) ROS Limited/Unobtainable: No Constitutional: Reports: no symptoms HEENT: Reports: no symptoms Cardiovascular: Reports: no symptoms Respiratory: Reports: no symptoms Gastrointestinal/Abdominal: Reports: no symptoms Genitourinary: Reports: no symptoms Neurologic/Psychiatric: Reports: no symptoms Subjective 53 YO M admitted with generalized pain and muscle cramps. Now renal failure, pancreatitis and elevated liver function tests. Cover for Intt Milton-Dr Guillen. Objective Last Vital Signs Date Time Temp Pulse Resp B/P (MAP) Pulse Ox O2 Delivery O2 Flow Rate FiO2 07/29/19 16:00 98.0 68 18 130/76 (94) 100 07/29/19 09:00 Room Air Laboratory Tests Test 07/29/19 05:25 White Blood Count 7.4 K/UL (4.8-10.8) Red Blood Count 4.04 M/UL (4.70-6.10) L Hemoglobin 11.9 G/DL (14.2-18.0) L Hematocrit 35.4 % (42.0-52.0) L Mean Corpuscular Volume 88 FL (80-99) Mean Corpuscular Hemoglobin 29.6 PG (27.0-31.0) Mean Corpuscular Hemoglobin Concent 33.7 G/DL (32.0-36.0) Red Cell Distribution Width 11.2 % (11.6-14.8) L Platelet Count 189 K/UL (150-450) Mean Platelet Volume 8.3 FL (6.5-10.1) Neutrophils (%) (Auto) 60.0 % (45.0-75.0) Lymphocytes (%) (Auto) 26.8 % (20.0-45.0) Monocytes (%) (Auto) 8.7 % (1.0-10.0) Eosinophils (%) (Auto) 3.9 % (0.0-3.0) H Basophils (%) (Auto) 0.6 % (0.0-2.0) Sodium Level 139 MMOL/L (136-145) Potassium Level 4.6 MMOL/L (3.5-5.1) Chloride Level 106 MMOL/L (98-107) Carbon Dioxide Level 29 MMOL/L (21-32) Anion Gap 4 mmol/L (5-15) L Blood Urea Nitrogen 12 mg/dL (7-18) Creatinine 1.2 MG/DL (0.55-1.30) Estimat Glomerular Filtration Rate > 60 mL/min (>60) Glucose Level 93 MG/DL (74-106) Calcium Level 8.7 MG/DL (8.5-10.1) Microbiology Date/Time Source Procedure Growth Status 07/28/19 17:30 Urine,Clean Catch Urine Culture - Preliminary NO GROWTH Resulted Intake and Output 07/28/19 07/29/19 19:00 07:00 Intake Total 1000 ml 1500 ml Output Total 400 ml Balance 1000 ml 1100 ml Intake Oral 600 ml IV Total 100 ml Other 900 ml 900 ml Output Urine Total 400 ml # Voids 2 # Bowel Movements 1 1 Objective PHYSICAL EXAMINATION: GENERAL: The patient is a well-developed and well-nourished male, in no apparent distress. HEENT: Eyes, pupils are equal and responsive to light and accommodation. Extraocular movements are intact. NECK: Supple without lymphadenopathy. CHEST: Lungs are clear to auscultation bilaterally without wheezes or rales. CARDIOVASCULAR: Regular rhythm and rate. S1 and S2 are normal without murmurs, rubs, or gallops. ABDOMEN: Soft, nontender, and nondistended. Positive bowel sounds. No evidence of hepatosplenomegaly. Currently, no rebound or guarding noted. EXTREMITIES: Negative for clubbing, cyanosis, or edema. RECTAL/GENITAL: Not performed. NEUROLOGIC: Cranial nerves II through XII are grossly intact without focal deficits. Motor strength is 5/5 bilaterally. Deep tendon reflexes are 2+ plantar. Assessment/Plan Assessment/Plan ASSESSMENT: This is a 53-year-old male. 1. Generalized pain. 2. Generalized muscle cramps. 3. Acute on chronic renal failure. 4. Elevated liver function tests. 5. Acute pancreatitis. 6. Hypercalcemia. 7. Benign prostatic hypertrophy. 8. Gastroesophageal reflux disease. 9. low grade fever 10. UTI=Kleb. Pneumo TREATEMENT: 1. Renal failure. A Nephrology consultation has been obtained with Dr. Orellana. We will follow recommendations of Nephrology. The patient does have a history of renal failure in the past. 2. Hypercalcemia. A repeat calcium level is pending. 3. Pancreatitis/elevated liver function tests. A Gastroenterology consultation has been obtained with Dr. Oleg Vergara. Tolerating low fat diet We will follow recommendations of Gastroenterology. CT abdomen/pelvis=normal 4. Benign prostatic hypertrophy. 5. Gastroesophageal reflux disease. 6. Repeat urine cult; start IV Tristin Coy MD Jul 29, 2019 18:56
--- NOTE | 2019-07-29 19:30 | NUR ---
HAND-OFF: Report given to ROSALIE Avila
[2019-07-29 20:00] VITALS: BP 110/68
--- NOTE | 2019-07-29 20:10 | NUR ---
NURSE NOTES: RECEIVED PATIENT FROM ROASLIE WILLETT. PT IS AWAKE, AAO X4, ON ROOM AIR, NO ACUTE DISTRESS NOTED. PATIENT DENIES PAIN. IV ON FA 24G IS INTACT AND PATENT. BED IS LOCKED AND LOW, BED ALARMS ACTIVE, SIDE RAILS UP X2 AND CALL LIGHT IS WITHIN REACH. WILL CONTINUE TO MONITOR.
[2019-07-30] VITALS: BP_SYST 121; BP_SYST 140; BP_DIAS 76; BP_DIAS 84
[2019-07-30 04:00] VITALS: BP 107/97
[2019-07-30 06:32] LABS: BASOPHILS % (AUTO) 2.3 % (0.0-2.0); EOSINOPHILS % (AUTO) 6.4 % (0.0-3.0); HEMATOCRIT 37.5 % (42.0-52.0); HEMOGLOBIN 12.6 G/DL (14.2-18.0); LYMPHOCYTES % (AUTO) 28.9 % (20.0-45.0); MEAN CORPUSCULAR VOLUME 88 FL (80-99); MONOCYTES % (AUTO) 14.2 % (1.0-10.0); NEUTROPHILS % (AUTO) 48.3 % (45.0-75.0); PLATELET COUNT 213 K/UL (150-450); RED BLOOD COUNT 4.27 M/UL (4.70-6.10); RED CELL DISTRIBUTION WIDTH 11.2 % (11.6-14.8)
[2019-07-30 07:07] LABS: ANION GAP 9 mmol/L (5-15); BLOOD UREA NITROGEN 16 mg/dL (7-18); CARBON DIOXIDE 24 MMOL/L (21-32); CHLORIDE 106 MMOL/L (98-107); CREATININE 1.2 MG/DL (0.55-1.30); SODIUM 139 MMOL/L (136-145)
--- NOTE | 2019-07-30 07:42 | NUR ---
HAND-OFF: Report given to ROSALIE REAGAN. Patient is in stable condition. Endorsed plan of care.
--- NOTE | 2019-07-30 07:45 | NUR ---
NURSE NOTES: PT AXOX4, DENIES PAIN, NO NAUSEA/VOMITING. PT DENIES DIZZINESS OR SOB WHEN AMBULATING. PT STATES HE IS HOPING TO GO HOME TODAY. IN NO APPARENT DISTRESS AT THIS TIME. PT EDUCATED PRECISION ASSEMBLY INSPECTOR LIGHT. PT VERBALIZED UNDERSTANDING. CALL LIGHT WITHIN REACH. WILL CONTINUE TO MONITOR.
[2019-07-30 08:00] VITALS: BP 105/67
[2019-07-30] MEDS: Tamsulosin 0.4mg cap ORAL SCH ×2 (08:22→17:20)
[2019-07-30] MEDS: Docusate 100mg cap ORAL SCH ×3 (08:22→17:20)
--- NOTE | 2019-07-30 09:00 | General Progress Note ---
Assessment/Plan Problem List: (1) BPH (benign prostatic hyperplasia) ICD Codes: N40.0 - Benign prostatic hyperplasia without lower urinary tract symptoms SNOMED: 075145865 (2) Elevated liver enzymes ICD Codes: R74.8 - Abnormal levels of other serum enzymes SNOMED: 437558707 (3) Dehydration ICD Codes: E86.0 - Dehydration SNOMED: [id number] Assessment/Plan: fu abd CT>>> reviewed fu urine tox>>> positive amphetamine hepatitis panel>>> positive for hep C repeat labs will fu needs out patient fu for hep C evaluation and treatment Subjective ROS Limited/Unobtainable: No Allergies: Coded Allergies: PENICILLINS (Verified Allergy, Intermediate, 02/17/17) Uncoded Allergies: PENICILLIN (Allergy, Mild, hives, 07/27/19) Objective Last 24 Hour Vital Signs Date Time Temp Pulse Resp B/P (MAP) Pulse Ox O2 Delivery O2 Flow Rate FiO2 07/30/19 04:00 97.2 51 19 107/97 (100) 96 07/30/19 00:00 97.5 66 18 121/76 (91) 100 07/29/19 21:00 Room Air 07/29/19 20:00 98.5 61 18 110/68 (82) 100 07/29/19 16:00 98.0 68 18 130/76 (94) 100 07/29/19 12:00 97.9 64 19 138/81 (100) 98 07/29/19 09:00 Room Air Intake and Output 07/29/19 07/30/19 18:59 06:59 Intake Total 560 ml 100 ml Output Total 600 ml Balance 560 ml -500 ml Intake Oral 560 ml IV Total 100 ml Output Urine Total 600 ml # Voids 4 Laboratory Tests 07/30/19 05:50: White Blood Count 5.0, Red Blood Count 4.27L, Hemoglobin 12.6L, Hematocrit 37.5L , Mean Corpuscular Volume 88, Mean Corpuscular Hemoglobin 29.5, Mean Corpuscular Hemoglobin Concent 33.5, Red Cell Distribution Width 11.2L, Platelet Count 213, Mean Platelet Volume 8.3, Neutrophils (%) (Auto) 48.3, Lymphocytes (%) (Auto) 28.9, Monocytes (%) (Auto) 14.2H, Eosinophils (%) (Auto) 6.4H, Basophils (%) (Auto) 2.3H, Sodium Level 139, Potassium Level 4.0, Chloride Level 106, Carbon Dioxide Level 24, Anion Gap 9, Blood Urea Nitrogen 16 , Creatinine 1.2, Estimat Glomerular Filtration Rate > 60, Glucose Level 96, Calcium Level 9.0, Hepatitis C Antibody [Pending], Hepatitis C RNA (PCR) IUs/ml [Pending], Hepatitis C RNA (PCR) log IUs/ml [Pending] Height (Feet): 5 Height (Inches): 5.00 Weight (Pounds): 140 General Appearance: alert EENT: normal ENT inspection Neck: supple Cardiovascular: normal rate Respiratory/Chest: decreased breath sounds Abdomen: normal bowel sounds, non tender, soft Extremities: non-tender Oleg Vergara MD Jul 30, 2019 09:00
--- NOTE | 2019-07-30 10:05 | Nephrology Progress Note ---
Assessment/Plan Problem List: (1) Dehydration Assessment: resolved (2) Hypercalcemia Assessment: resolved (3) Acute pancreatitis (4) Elevated liver enzymes (5) BPH (benign prostatic hyperplasia) (6) Drug abuse Assessment: opiates amphetamin THC in urine Assessment acute renal failure- resolving ? CKD underlying Hypercalcemia due to dehydration Acute pancreatitis electrolyte imbalance Plan Clark out ambulate DC Hydrate Monitor lytes and Chems per orders avoid nephrotoxics DC planning- on PO antibiotics Subjective ROS Limited/Unobtainable: No Objective Objective Last 24 Hour Vital Signs Date Time Temp Pulse Resp B/P (MAP) Pulse Ox O2 Delivery O2 Flow Rate FiO2 07/30/19 08:00 97.9 61 16 105/67 (80) 99 07/30/19 04:00 97.2 51 19 107/97 (100) 96 07/30/19 00:00 97.5 66 18 121/76 (91) 100 07/29/19 21:00 Room Air 07/29/19 20:00 98.5 61 18 110/68 (82) 100 07/29/19 16:00 98.0 68 18 130/76 (94) 100 07/29/19 12:00 97.9 64 19 138/81 (100) 98 Intake and Output 07/29/19 07/30/19 18:59 06:59 Intake Total 560 ml 100 ml Output Total 600 ml Balance 560 ml -500 ml Intake Oral 560 ml IV Total 100 ml Output Urine Total 600 ml # Voids 4 Laboratory Tests 07/30/19 05:50: White Blood Count 5.0, Red Blood Count 4.27L, Hemoglobin 12.6L, Hematocrit 37.5L , Mean Corpuscular Volume 88, Mean Corpuscular Hemoglobin 29.5, Mean Corpuscular Hemoglobin Concent 33.5, Red Cell Distribution Width 11.2L, Platelet Count 213, Mean Platelet Volume 8.3, Neutrophils (%) (Auto) 48.3, Lymphocytes (%) (Auto) 28.9, Monocytes (%) (Auto) 14.2H, Eosinophils (%) (Auto) 6.4H, Basophils (%) (Auto) 2.3H, Sodium Level 139, Potassium Level 4.0, Chloride Level 106, Carbon Dioxide Level 24, Anion Gap 9, Blood Urea Nitrogen 16 , Creatinine 1.2, Estimat Glomerular Filtration Rate > 60, Glucose Level 96, Calcium Level 9.0, Hepatitis C Antibody [Pending], Hepatitis C RNA (PCR) IUs/ml [Pending], Hepatitis C RNA (PCR) log IUs/ml [Pending] Height (Feet): 5 Height (Inches): 5.00 Weight (Pounds): 140 General Appearance: no apparent distress Cardiovascular: normal rate Respiratory/Chest: lungs clear Abdomen: soft Objective no change Ketan Orellana MD Jul 30, 2019 10:05
--- NOTE | 2019-07-30 11:38 | NUR ---
UPDATED INSURANCE INFORMATION [facility]/ DEPT CERT REF# [id number] EXPOSURE MACHINE OPERATOR IS ESTEVAN T: [phone] F: [phone] *SPOKE WITH ESTEVAN WHO STATED PATIENT'S STAY HAS BEEN APPROVED THRU TODAY
--- NOTE | 2019-07-30 11:45 | NUR ---
CASE MANAGEMENT:REVIEW 07/29/19 SI: DEHYDRATION. ELEVATED LIVER ENZYMES 98.6 78 17 95/57 98% ON RA H/H-11.9/35.4 IS: IV LEVAQUIN Q24 PEPCID PO BID FLOMAX PO BID NORCO : MED/SURG STATUS 4 EAST DCP: FROM HOME PLAN: NPO 07/30/19 SI: DEHYDRATION. ELEVATED LIVER ENZYMES 97.9 61 16 105/67 99% ON RA H/H-12.6/37.5 IS: IV LEVAQUIN Q24 PEPCID PO BID FLOMAX PO BID NORCO : MED/SURG STATUS 4 EAST DCP: FROM HOME PLAN: START LIQUID DIET
[2019-07-30 12:00] VITALS: BP 111/65
--- NOTE | 2019-07-30 15:12 | Infectious Diseases Prog Note ---
Assessment/Plan Assessment/Plan Assessment: Acute pancreatitis -CT abd/p: No acute abnormality. Prior cholecystectomy. Mildly ectatic extrahepatic bile ducts, likely related to such. Empty bladder with a Clark catheter. Minimal basilar lower lobe pulmonary atelectasis or scarring Fever; improving Leukocytosis, SP UTI (u/a neg but patient has dysuria -u/a neg; ucx >100k K.pna (R amp, nitrofurantoin; otherwise S); repeat ucx NTD Elevated LFTs, SP Hep C ab + UDS + opiates, THC, amphetamines MISSY, imporving -Renal US: Negative for hydronephrosis. Clark catheter. Incidental finding small right renal cyst BPH GERD CAD/[place] gastritis Plan: -Cont Levaquin #3 (abx d #4/5) for UTI -07/28 SP Bactrim #2 -f/u cx -Monitor CBC/CMP, temperatures -f/u HCV VL Thank you for this consultation. Will continue to follow along with you. Discussed with RN Subjective Allergies: Coded Allergies: PENICILLINS (Verified Allergy, Intermediate, 02/17/17) Uncoded Allergies: PENICILLIN (Allergy, Mild, hives, 07/27/19) Subjective afebrile >36hrs no leukocytosis Objective Vital Signs Last 24 Hour Vital Signs Date Time Temp Pulse Resp B/P (MAP) Pulse Ox O2 Delivery O2 Flow Rate FiO2 07/30/19 12:00 97.4 62 16 111/65 (80) 100 07/30/19 09:00 Room Air 07/30/19 08:00 97.9 61 16 105/67 (80) 99 07/30/19 04:00 97.2 51 19 107/97 (100) 96 07/30/19 00:00 97.5 66 18 121/76 (91) 100 07/29/19 21:00 Room Air 07/29/19 20:00 98.5 61 18 110/68 (82) 100 07/29/19 16:00 98.0 68 18 130/76 (94) 100 Height (Feet): 5 Height (Inches): 5.00 Weight (Pounds): 140 Objective ENERAL: The patient is a well-developed and well-nourished male, in no apparent distress. HEENT: Eyes, pupils are equal and responsive to light and accommodation. Extraocular movements are intact. NECK: Supple without lymphadenopathy. CHEST: Lungs are clear to auscultation bilaterally without wheezes or rales. CARDIOVASCULAR: Regular rhythm and rate. S1 and S2 are normal without murmurs, rubs, or gallops. ABDOMEN: Soft, nontender, and nondistended. Positive bowel sounds. No evidence of hepatosplenomegaly. Currently, no rebound or guarding noted. EXTREMITIES: Negative for clubbing, cyanosis, or edema. tar. Microbiology Date/Time Source Procedure Growth Status 07/28/19 17:30 Urine,Clean Catch Urine Culture - Preliminary Mixed Gram Positive Organism Resulted Laboratory Tests Test 07/30/19 05:50 White Blood Count 5.0 K/UL (4.8-10.8) Red Blood Count 4.27 M/UL (4.70-6.10) L Hemoglobin 12.6 G/DL (14.2-18.0) L Hematocrit 37.5 % (42.0-52.0) L Mean Corpuscular Volume 88 FL (80-99) Mean Corpuscular Hemoglobin 29.5 PG (27.0-31.0) Mean Corpuscular Hemoglobin Concent 33.5 G/DL (32.0-36.0) Red Cell Distribution Width 11.2 % (11.6-14.8) L Platelet Count 213 K/UL (150-450) Mean Platelet Volume 8.3 FL (6.5-10.1) Neutrophils (%) (Auto) 48.3 % (45.0-75.0) Lymphocytes (%) (Auto) 28.9 % (20.0-45.0) Monocytes (%) (Auto) 14.2 % (1.0-10.0) H Eosinophils (%) (Auto) 6.4 % (0.0-3.0) H Basophils (%) (Auto) 2.3 % (0.0-2.0) H Sodium Level 139 MMOL/L (136-145) Potassium Level 4.0 MMOL/L (3.5-5.1) Chloride Level 106 MMOL/L (98-107) Carbon Dioxide Level 24 MMOL/L (21-32) Anion Gap 9 mmol/L (5-15) Blood Urea Nitrogen 16 mg/dL (7-18) Creatinine 1.2 MG/DL (0.55-1.30) Estimat Glomerular Filtration Rate > 60 mL/min (>60) Glucose Level 96 MG/DL (74-106) Calcium Level 9.0 MG/DL (8.5-10.1) Hepatitis C Antibody Pending Hepatitis C RNA (PCR) IUs/ml Pending Hepatitis C RNA (PCR) log IUs/ml Pending Current Medications Medications (Trade) Dose Ordered Sig/Cole Route PRN Reason Start Time Stop Time Status Last Admin Dose Admin Acetaminophen (Tylenol) 650 mg Q6H PRN ORAL Mild Pain/Temp > 100.5 07/25/19 15:07 08/24/19 15:06 07/27/19 17:48 Acetaminophen/ Hydrocodone Bitart ([place] 5/325) 1 tab Q6H PRN ORAL Moderate Pain (Pain Scale 4-6) 07/25/19 15:08 08/01/19 15:07 07/28/19 13:26 Docusate Sodium (Colace) 100 mg THREE TIMES A DAY ORAL 07/26/19 09:00 08/25/19 08:59 07/30/19 12:28 Famotidine (Pepcid) 20 mg BID ORAL 07/27/19 18:00 08/26/19 17:59 07/30/19 08:22 Levofloxacin 100 ml @ 100 mls/hr Q24H IVPB 07/28/19 16:00 08/04/19 15:59 07/29/19 17:01 Ondansetron HCl (Zofran) 4 mg Q4H PRN IVP Nausea & Vomiting 07/25/19 15:08 08/24/19 15:07 Tamsulosin HCl (Flomax) 0.4 mg BID ORAL 07/25/19 18:00 08/24/19 20:59 07/30/19 08:22 Patti Ernst M.D. Jul 30, 2019 15:12
[2019-07-30 16:00] VITALS: BP 115/73
--- NOTE | 2019-07-30 17:12 | Internal Med Progress Note ---
Subjective Date of Service: Jul 30, 2019 Physician Name Tristin Meyers Attending Physician Joseph Guillen MD Current Medications Medications (Trade) Dose Ordered Sig/Cole Route PRN Reason Start Time Stop Time Status Last Admin Dose Admin Acetaminophen (Tylenol) 650 mg Q6H PRN ORAL Mild Pain/Temp > 100.5 07/25/19 15:07 08/24/19 15:06 07/27/19 17:48 Acetaminophen/ Hydrocodone Bitart ([place] 5/325) 1 tab Q6H PRN ORAL Moderate Pain (Pain Scale 4-6) 07/25/19 15:08 08/01/19 15:07 07/28/19 13:26 Docusate Sodium (Colace) 100 mg THREE TIMES A DAY ORAL 07/26/19 09:00 08/25/19 08:59 07/30/19 12:28 Famotidine (Pepcid) 20 mg BID ORAL 07/27/19 18:00 08/26/19 17:59 07/30/19 08:22 Levofloxacin 100 ml @ 100 mls/hr Q24H IVPB 07/28/19 16:00 08/04/19 15:59 07/30/19 15:36 Ondansetron HCl (Zofran) 4 mg Q4H PRN IVP Nausea & Vomiting 07/25/19 15:08 08/24/19 15:07 Tamsulosin HCl (Flomax) 0.4 mg BID ORAL 07/25/19 18:00 08/24/19 20:59 07/30/19 08:22 Allergies: Coded Allergies: PENICILLINS (Verified Allergy, Intermediate, 02/17/17) Uncoded Allergies: PENICILLIN (Allergy, Mild, hives, 07/27/19) ROS Limited/Unobtainable: No Constitutional: Reports: no symptoms HEENT: Reports: no symptoms Cardiovascular: Reports: no symptoms Respiratory: Reports: no symptoms Gastrointestinal/Abdominal: Reports: abdominal pain Genitourinary: Reports: no symptoms Neurologic/Psychiatric: Reports: no symptoms Subjective 53 YO M admitted with generalized pain and muscle cramps. Now renal failure, pancreatitis and elevated liver function tests. Cover for Intt Milton-Dr Guillen. Objective Last Vital Signs Date Time Temp Pulse Resp B/P (MAP) Pulse Ox O2 Delivery O2 Flow Rate FiO2 07/30/19 16:00 97.6 68 18 115/73 (87) 100 07/30/19 09:00 Room Air Laboratory Tests Test 07/30/19 05:50 White Blood Count 5.0 K/UL (4.8-10.8) Red Blood Count 4.27 M/UL (4.70-6.10) L Hemoglobin 12.6 G/DL (14.2-18.0) L Hematocrit 37.5 % (42.0-52.0) L Mean Corpuscular Volume 88 FL (80-99) Mean Corpuscular Hemoglobin 29.5 PG (27.0-31.0) Mean Corpuscular Hemoglobin Concent 33.5 G/DL (32.0-36.0) Red Cell Distribution Width 11.2 % (11.6-14.8) L Platelet Count 213 K/UL (150-450) Mean Platelet Volume 8.3 FL (6.5-10.1) Neutrophils (%) (Auto) 48.3 % (45.0-75.0) Lymphocytes (%) (Auto) 28.9 % (20.0-45.0) Monocytes (%) (Auto) 14.2 % (1.0-10.0) H Eosinophils (%) (Auto) 6.4 % (0.0-3.0) H Basophils (%) (Auto) 2.3 % (0.0-2.0) H Sodium Level 139 MMOL/L (136-145) Potassium Level 4.0 MMOL/L (3.5-5.1) Chloride Level 106 MMOL/L (98-107) Carbon Dioxide Level 24 MMOL/L (21-32) Anion Gap 9 mmol/L (5-15) Blood Urea Nitrogen 16 mg/dL (7-18) Creatinine 1.2 MG/DL (0.55-1.30) Estimat Glomerular Filtration Rate > 60 mL/min (>60) Glucose Level 96 MG/DL (74-106) Calcium Level 9.0 MG/DL (8.5-10.1) Hepatitis C Antibody Pending Hepatitis C RNA (PCR) IUs/ml Pending Hepatitis C RNA (PCR) log IUs/ml Pending Microbiology Date/Time Source Procedure Growth Status 07/28/19 17:30 Urine,Clean Catch Urine Culture - Preliminary Mixed Gram Positive Organism Resulted Intake and Output 07/29/19 07/30/19 19:00 07:00 Intake Total 560 ml 100 ml Output Total 600 ml Balance 560 ml -500 ml Intake Oral 560 ml IV Total 100 ml Output Urine Total 600 ml # Voids 4 Objective PHYSICAL EXAMINATION: GENERAL: The patient is a well-developed and well-nourished male, in no apparent distress. HEENT: Eyes, pupils are equal and responsive to light and accommodation. Extraocular movements are intact. NECK: Supple without lymphadenopathy. CHEST: Lungs are clear to auscultation bilaterally without wheezes or rales. CARDIOVASCULAR: Regular rhythm and rate. S1 and S2 are normal without murmurs, rubs, or gallops. ABDOMEN: Soft, nontender, and nondistended. Positive bowel sounds. No evidence of hepatosplenomegaly. Currently, no rebound or guarding noted. EXTREMITIES: Negative for clubbing, cyanosis, or edema. RECTAL/GENITAL: Not performed. NEUROLOGIC: Cranial nerves II through XII are grossly intact without focal deficits. Motor strength is 5/5 bilaterally. Deep tendon reflexes are 2+ plantar. Assessment/Plan Assessment/Plan ASSESSMENT: This is a 53-year-old male. 1. Generalized pain. 2. Generalized muscle cramps. 3. Acute on chronic renal failure. 4. Elevated liver function tests. 5. Acute pancreatitis. 6. Hypercalcemia. 7. Benign prostatic hypertrophy. 8. Gastroesophageal reflux disease. 9. UTI=Kleb. Pneumo TREATEMENT: 1. Renal failure. A Nephrology consultation has been obtained with Dr. Orellana. We will follow recommendations of Nephrology. The patient does have a history of renal failure in the past. 2. Hypercalcemia. A repeat calcium level is pending. 3. Pancreatitis/elevated liver function tests. A Gastroenterology consultation has been obtained with Dr. Oleg Vergara. Tolerating low fat diet We will follow recommendations of Gastroenterology. CT abdomen/pelvis=normal 4. Benign prostatic hypertrophy. 5. Gastroesophageal reflux disease. 6. Repeat urine cult; start IV Tristin Coy MD Jul 30, 2019 17:12
[2019-07-30] MEDS ORDERED: LEVAQUIN500 MG ORAL (17:29)
--- NOTE | 2019-07-30 18:45 | NUR ---
NURSE NOTES: PT WAS EDUCATED ON DISCHARGE PACKET AND PRESCRIPTION MEDICATIONS. PT VERBALIZED UDNERSTANDING. PT STATES HE HAS ALL BELONGINGS AND DID NOT WANT RN TO REVIEW BELONGINGS. PT SIGNED BELONGINGS LIST. IV ACCESS WAS DISCONTINUED. PT EDUCATED ON S/S TO CALL EMERGENCY SERVICES. PT WAS DISCHARGED VIA TAXI IN STABLE CONDITION.
--- NOTE | 2019-07-31 09:25 | Discharge Summary ---
Discharge Summary Discharge Summary _ DATE OF ADMISSION: 07/24/2019 DATE OF DISCHARGE: 07/30/2019 DISCHARGED BY: Dr. Guillen REASON FOR ADMISSION: 53 years old male with history of myocardial infarction, gallbladder removal, liver cirrhosis, substance abuse presented with complaint of abdominal discomfort, vomiting and leg/hand cramping for several days . Upon evaluation patient was slightly tachycardic , otherwise vital signs were stable. Laboratory work-up revealed mild leukocytosis WBC 11.3, stable hemoglobin, hematocrit and platelet count. Stable electrolytes. BUN 36, creatinine 4.5. Glucose 154. Calcium 11.3. Magnesium 2.4. Total bilirubin 2, direct bilirubin 0.3. AST 65 , ALT 112. Alkaline phosphatase 123. Lipase 521. Troponin negative. Albumin 5.8. Total protein 12.6 . Urine toxicology screen was positive for amphetamine, marijuana and opiates. Urinalysis revealed no pyuria , moderate bacteria, +1 leukocyte esterase, +3 protein. In emergency department patient started on the IV fluids and admitted for further management. CONSULTANTS: pulmonary/critical care Dr. Saenz ID specialist Dr. Ernst GI specialist Dr. eVrgara history tutor Dr. Orellana [facility]: Patient admitted and started on the IV fluids with close monitoring of volumes , renal parameters and electrolytes . Electrolytes were corrected as needed. Patient initially was kept n.p.o. Pain management was addressed. Symptomatic treatment provided. Lipase trended down the next day. Patient slowly started on liquid diet and was advanced as tolerated. Renal ultrasound was negative for hydronephrosis. Hypercalcemia resolved with hydration , and likely was due to dehydration. Total protein down to 7.2 With IV hydration creatinine from 4.5 down to 1.2. IV fluids discontinued. Urine culture initially revealed Klebsiella pneumonia. Patient was on antibiotic as per ID specialist recommendation. Repeated urine culture revealed mixed gram-positive organisms. Patient will need to continue antibiotic upon discharge to complete the course. Liver enzymes and lipase were closely monitored. Lipase returned to normal. AST and ALT trending down, still elevated. Hepatitis panel revealed evidence of positive hepatitis C antibody. CT of the abdomen and pelvis revealed no acute abnormality. Evidence of prior cholecystectomy. Bowel regimen instituted . Supportive care provided. Antiemetics were on board as needed. GI specialist recommended outpatient treatment for hepatitis C. GI prophylaxis provided. Patient clinically stabilized and was ready for discharge home. Patient patient was advised abstinence from illicit street drugs FINAL DIAGNOSES: Acute renal failure- resolved, possibly on chronic renal insufficiency Dehydration Hypercalcemia due to dehydration -resolved Klebsiella UTI Elevated liver enzymes Hepatitis C Acute pancreatitis BPH Drug abuse Electrolyte imbalance Coronary artery disease with history of [place] GERD DISCHARGE MEDICATIONS: See Medication Reconciliation list. DISCHARGE INSTRUCTIONS: Patient was discharged home . Follow-up with a primary care provider in 1 week. I have been assigned to dictate discharge summary for this account. I was not involved in the patient's management. Almaz Parra NP Jul 31, 2019 09:25
== END 2019-07-30 18:45 | disposition home or self-care (01) | DRG 282 ==
LOC: EDBD 22:05 → EMR 22:17 → EDBEDREQ 23:26 → 2E 23:44 → EDBEDREQ 23:52 → 4E 07-25 15:02
DX: K85.90 Acute pancreatitis without necrosis or infection, unspecified (principal); E83.52 Hypercalcemia; E86.0 Dehydration; N17.9 Acute kidney failure, unspecified; N39.0 Urinary tract infection, site not specified; B96.1 Klebsiella pneumoniae [K. pneumoniae] as the cause of diseases classified elsewhere; K21.9 Gastro-esophageal reflux disease without esophagitis; R74.8 Abnormal levels of other serum enzymes; I25.10 Atherosclerotic heart disease of native coronary artery without angina pectoris; I25.2 Old myocardial infarction; N18.9 Chronic kidney disease, unspecified; N40.0 Benign prostatic hyperplasia without lower urinary tract symptoms; F11.10 Opioid abuse, uncomplicated; F12.10 Cannabis abuse, uncomplicated; F15.10 Other stimulant abuse, uncomplicated; D72.829 Elevated white blood cell count, unspecified; Z90.49 Acquired absence of other specified parts of digestive tract; N28.1 Cyst of kidney, acquired
CPT/HCPCS: 36415; 74177; 76770; 80048; 80053; 80061; 80307; 81001; 82150; 82248; 82550; 82962; 82977; 83036; 83690; 83735; 84100; 84300; 84443; 84484; 84550; 85025; 85651; 86140; 86705; 86709; 86803; 87086; 87181; 87340; 87522; 89050; 93005; 96361; 96365; 96375; 99285; J7030